=== PATIENT | female | born 1985 | race Caucasian/White ===

== ENCOUNTER → 2018-06-01 09:19 | Outpatient (CLI) | payer OTHER, SELFPAY ==
[2018-06-04 12:04] LABS: HPV Reflexed? NOT INDICATED
== END ==
PROVIDERS: Visit Provider Obstetrics & Gynecology
DX: Z12.4 Encounter for screening for malignant neoplasm of cervix (principal)
CPT/HCPCS: 88175; G0145

== ENCOUNTER → 2018-07-19 17:05 | Outpatient (CLI) | payer OTHER, SELFPAY ==
--- NOTE | 2018-07-19 17:10 | RAD_ITS ---
STUDY: X-RAY - LUMBAR SPINE REASON FOR EXAM: Female, 33 years old. Acute low back pain with radiation into hip. TECHNIQUE: 5 view(s) of the lumbar spine were obtained. COMPARISON: None FINDINGS: Normal lumbar lordosis. There is no substantial scoliosis. There is a normal alignment of the vertebrae. Normal vertebral bodies and endplates. Normal disc space heights. The soft tissue structures are unremarkable. RAD/L/S Spine Min 4 Views IMPRESSION: Normal x-ray examination of the lumbar spine. Electronically Signed: Shane Lewis MD at 6:34 EDT , Service support ,
== END ==
DX: M54.5 Low back pain (principal)
CPT/HCPCS: 72110

== ENCOUNTER → 2019-07-04 15:31 | Outpatient (CLI) | payer OTHER, SELFPAY ==
[2017-04-21 10:39] VITALS: BMI 43.5
== END ==
PROVIDERS: Visit Provider Obstetrics & Gynecology
DX: Z12.4 Encounter for screening for malignant neoplasm of cervix (principal)

== ENCOUNTER → 2020-02-15 13:13 | Outpatient (CLI) | payer OTHER, SELFPAY ==
--- NOTE | 2020-02-15 13:26 | VDLE_ITS ---
Reason For Study: Rt calf pain RIGHT GSV is normal. CFV is compressible, spontaneous, phasic, competent and demonstrates normal augmentation. FV is compressible, spontaneous, phasic, competent and demonstrates normal augmentation. POP V is compressible, spontaneous, phasic, competent and demonstrates normal augmentation. T/P Trunk is compressible. PTV is compressible. RT PerV is compressible. Procedure Exam performed in department. A preliminary report was called and/or faxed to [facility]. Interpretation Summary Deep veins of the right lower extremity are patent and compressible segmentally. There is no evidence of right lower extremity deep vein thrombosis. Valvular competence appears intact within the proximal deep venous system on the right . The right great saphenous vein appears patent and compressible segmentally. Ordering Physician: Mohamud Joy Performed By: Nathaly Brown RVT
== END ==
PROVIDERS: Referring Provider Family Medicine; Visit Provider Family Medicine
DX: M79.661 Pain in right lower leg (principal)
CPT/HCPCS: 93971

== ENCOUNTER → 2020-02-17 15:35 | Outpatient (CLI) | payer OTHER, SELFPAY ==
[2017-04-21 10:39] VITALS: BMI 43.5
[2020-02-17 16:41] LABS: hCG Titer Quant., Serum 114 mIU/mL (1-3)
[2020-02-17 17:51] LABS: Chlamydia Trachomatis by PCR Negative (Negative); Neisserai gonorrhoeae by PCR Negative (Negative); Probe Check PASS; Sample Adequacy Control PASS; Specimen Processing Control PASS
[2020-02-20 17:04] LABS: hCG Titer Quant., Serum 25 mIU/mL (1-3)
== END ==
PROVIDERS: Visit Provider Obstetrics & Gynecology
DX: Z11.3 Encounter for screening for infections with a predominantly sexual mode of transmission (principal); N91.2 Amenorrhea, unspecified
CPT/HCPCS: 36415; 84702; 84703; 87491; 87591

== ENCOUNTER → 2020-02-27 16:25 | Outpatient (CLI) | payer OTHER, SELFPAY ==
[2017-04-21 10:39] VITALS: BMI 43.5
[2020-02-27 18:26] LABS: hCG Titer Quant., Serum 1 mIU/mL (1-3)
== END ==
PROVIDERS: Referring Provider Obstetrics & Gynecology; Visit Provider Obstetrics & Gynecology
DX: N91.2 Amenorrhea, unspecified (principal)
CPT/HCPCS: 36415; 84702

== ENCOUNTER → 2020-05-03 | Outpatient (CLI) | payer OTHER, SELFPAY ==
[2017-04-21 10:39] VITALS: BMI 43.5
[2020-05-03 19:08] LABS: Chlamydia Trachomatis by PCR Negative (Negative); Neisserai gonorrhoeae by PCR Negative (Negative); Probe Check PASS; Sample Adequacy Control PASS; Specimen Processing Control PASS
== END | disposition home or self-care (01) ==
LOC: LABSPEC 16:20
PROVIDERS: Visit Provider Obstetrics & Gynecology
DX: Z11.3 Encounter for screening for infections with a predominantly sexual mode of transmission (principal)
CPT/HCPCS: 87491; 87591

== ENCOUNTER → 2020-05-31 16:42 | Outpatient (CLI) | payer OTHER, SELFPAY ==
[2017-04-21 10:39] VITALS: BMI 43.5
[2020-05-31 17:24] LABS: Absolute Lymphocyte Count 1.65 X10^3/uL (0.83-4.51); Absolute Neutrophil Count 5.2 X10^3/uL (2.0-7.7); Basophil# 0.02 X10^3/uL; Basophil% 0.3 % (0-1); Eosinophil# 0.17 X10^3/uL; Eosinophils% 2.3 % (0-5); Hematocrit 38.1 % (37-47); Hemoglobin 12.4 g/dL (12.0-15.0); Lymphocyte # 1.65 X10^3/ul (4.0); Lymphocyte % 21.9 % (19-41); Mean Corp Hgb Conc 32.5 g/dL (32-36); Mean Platelet Vol. 10.5 fl (6.2-12.0); Monocyte# 0.46 X10^3/uL; Monocyte% 6.1 % (0-10); NRBC Flagged by Analyzer 0 % (0-5); Neutrophil # 5.21 X10^3/uL (2.7-7.7); Neutrophil % 69.3 % (47-70); Platelet Count 252 K/mm3 (150-450); RBC Distribution Width CV 12.6 % (11.6-14.6); RBC Distribution Width SD 42.5 fl (35.1-43.9); Red Blood Count 4.14 M/mm3 (4.2-5.4); White Blood Count 7.5 K/mm3 (4.4-11.0)
[2020-05-31 17:36] LABS: Color, Urine Yellow (Yellow); Glucose, Dipstick Normal (Normal); Ketone-Dipstick Negative (Negative); Leukocyte Esterase-Dipstick 100 /ul (Negative); Nitrite-Dipstick Negative (Negative); Occult Blood-Urine 50 /ul (Negative); Protein-Dipstick Negative (Negative); Specific Gravity, Urine 1.025 (1.002-1.030); Urine Bilirubin Dipstick Negative (Negative); Urine Clarity Turbid (Clear); Urine Urobilinogen Normal (Normal)
[2020-05-31 18:20] LABS: Thyroid Stim Hormone (TSH) 1.45 uIU/mL (0.358-3.74)
[2020-06-01 11:47] LABS: HIV - WCH Non-Reactive (Nonreactive); Hepatitis B Surface Antigen Non-Reactive (Nonreactive); Hepatitis C Antibody Non-Reactive (Nonreactive)
[2020-06-07 01:33] LABS: Prenatal RPR NONREACTIVE (NONREACTIVE)
== END ==
PROVIDERS: Visit Provider Obstetrics & Gynecology
DX: Z34.81 Encounter for supervision of other normal pregnancy, first trimester (principal)
CPT/HCPCS: 36415; 81002; 84443; 85025; 86703; 86762; 86803; 87340

== ENCOUNTER → 2020-09-26 09:49 | Outpatient (CLI) | payer OTHER, SELFPAY ==
[2020-09-26 11:30] LABS: Hematocrit 37.5 % (37-47); Hemoglobin 12.1 g/dL (12.0-15.0); Mean Corp Hgb Conc 32.3 g/dL (32-36); Mean Corpuscular Hgb 30.6 pg (27.0-32.0); Mean Corpuscular Volume 94.9 fL (81-99); Mean Platelet Vol. 10.4 fl (6.2-12.0); Platelet Count 235 K/mm3 (150-450); RBC Distribution Width CV 12.1 % (11.6-14.6); RBC Distribution Width SD 42.5 fl (35.1-43.9); Red Blood Count 3.95 M/mm3 (4.2-5.4)
[2020-09-26 11:32] LABS: Glucose Challenge Gest 1H 50g 102 mg/dL (70-140)
== END ==
PROVIDERS: Visit Provider Obstetrics & Gynecology
DX: Z34.83 Encounter for supervision of other normal pregnancy, third trimester (principal)
CPT/HCPCS: 36415; 82950; 85027

== ENCOUNTER 2020-11-12 18:15 | Outpatient (CLI) | payer OTHER, SELFPAY ==
[2017-04-21 10:39] VITALS: BMI 43.5
[2020-11-12 18:41] VITALS: BP 127/68; PULSE 93
[2020-11-12 18:42] VITALS: TEMP 37.4
[2020-11-12 19:17] VITALS: BMI 41.1
[2020-11-12 19:19] VITALS: BP 140/69; PULSE 77; TEMP 36.3; O2SAT 99
[2020-11-12] MEDS: Lactated Ringers 1,000 ML 999 ML IV (19:31)
[2020-11-12] MEDS: Ondansetron 4 MG/2 ML Vial IV (19:38)
[2020-11-12 20:29] VITALS: BP 130/60; PULSE 88
[2020-11-12] MEDS: Loperamide 2 MG Capsule 4 MG PO (20:33)
[2020-11-12] MEDS: proMETHazine 25 MG/ML Syringe 12.5 MG IV (21:33)
[2020-11-12] MEDS: Dextrose 5%-Lactated Ringers 1,000 ML 100 ML IV (21:33)
[2020-11-12 22:17] LABS: Anion Gap 8 (5-15); BUN 5 mg/dL (7-18); BUN/Creat Ratio 10.4 RATIO (10-20); Calcium,Total 8.7 mg/dL (8.5-10.1); Chloride 108 mmol/L (98-107); Creatinine, Serum 0.48 mg/dL (0.55-1.02); EST Glomerular Filtration Rate 157 mL/min (>60); Est Glom Filt Rate - Afr Amer 190 mL/min (>60); Estimated Creatinine Clearance 166.59 ml/min; Glucose 77 mg/dL (74-106); Potassium 3.6 mmol/L (3.5-5.1); Sodium Level 138 mmol/L (136-145)
[2020-11-13] MEDS: Loperamide 2 MG Capsule PO (02:06)
[2020-11-13] MEDS: Ondansetron 4 MG/2 ML Vial IV (02:06)
[2020-11-13 02:09] VITALS: BP 106/53; PULSE 92; TEMP 37.5; O2SAT 98
[2020-11-13 06:37] VITALS: BP 108/55; PULSE 81; TEMP 36.1
[2020-11-13 07:38] VITALS: TEMP 37
[2020-11-13 07:39] VITALS: BP 113/53; PULSE 68
--- NOTE | 2020-11-13 08:17 | PCM.PN.BLA ---
Progress Note Triage visit: 35-year-old at 35/0 weeks presenting with nausea, vomiting, diarrhea. Believes to be food poisoning. Her and son had similar symptoms. Patient was feeling dehydrated and unable to keep fluids down. Feeling movement, cramping. Denies leaking of fluid or vaginal bleeding. Denied headache, vision changes, chest pain, shortness of breath. Patient was given Zofran, fluid bolus and Imodium diarrheal episodes. At that time decision to monitor overnight was made. She was continued on D5 LR, BMP was sent and was within normal limits, Zofran and Phenergan IV as needed, Imodium as needed. This morning she is feeling improved. Last vomiting episode was yesterday around 1700. Last diarrheal episode around 02 30 this morning. Drink half of a Sprite. Cramping has resolved. NSTs reactive overnight. Vital Signs Temp Pulse BP Pulse Ox 11/13/20 07:39 68 113/53 L 11/13/20 07:38 98.6 F 11/13/20 06:37 97.0 F L 81 108/55 L 11/13/20 02:09 99.5 F H 92 106/53 L 98 11/12/20 20:29 88 130/60 H Laboratory Results - last 24 hr 11/12/20 21:40 Sodium 138 Potassium 3.6 Chloride 108 H Carbon Dioxide 22.0 Anion Gap 8 BUN 5 L Creatinine 0.48 L Estim Creat Clear Calc 166.59 Est GFR (MDRD) Af Amer 190 Est GFR (MDRD) Non-Af 157 BUN/Creatinine Ratio 10.4 Glucose 77 Calcium 8.7 PE: HEENT: NC/AT CARDIORESP: no increased effort ABDOMEN: soft, NT, gravid, no RUQ pain EXT: no edema Plan to discharge home with prescription for Zofran ODT if patient can tolerate some cracker. Discussed hydration at home with Gatorade or Pedialyte, water, adriana eye. Brat diet. Follow-up in office per routine. STROKE Vital Signs/Narrative: Vital Signs Temp Pulse BP 11/13/20 07:39 68 113/53 L 11/13/20 07:38 98.6 F 11/13/20 06:37 97.0 F L 81 108/55 L
== END 2020-11-13 09:00 | disposition home or self-care (01) ==
LOC: WPOUT 18:29 → WP 18:31
PROVIDERS: Visit Provider Student in an Organized Health Care Education/Training Program
DX: O26.893 Other specified pregnancy related conditions, third trimester (principal); O21.2 Late vomiting of pregnancy; R19.7 Diarrhea, unspecified; Z3A.35 35 weeks gestation of pregnancy
CPT/HCPCS: 96361 ×8; 96374; 96375; 96376; 36415; 59025; 59050; 80048; 99218; J7120; G0378; J2405

== ENCOUNTER → 2020-11-21 | Outpatient (CLI) | payer OTHER, SELFPAY ==
[2020-11-12 19:17] VITALS: BMI 41.1
== END | disposition home or self-care (01) ==
LOC: LABSPEC 16:49
PROVIDERS: Visit Provider Obstetrics & Gynecology
DX: Z36.85 Encounter for antenatal screening for Streptococcus B (principal)
CPT/HCPCS: 87081

== ENCOUNTER 2020-12-11 19:56 | Inpatient (IN) | payer OTHER, SELFPAY ==
--- NOTE | 2020-12-11 19:56 | HP.PCM_ITS ---
History and Physical Date of Admission: 12/11/20 HPI: 35 yo G1 at 39/0w, LUIS 12/18/20 by LMP, admitted for term elective induction of labor. Denies, LOF, VB, regular contractions. +FM. This is complicated by: nothing Obstetrical History G1: current Past Medical History none Medications PNV, claritin Past Surgical History WTE, tonsillectomy, cholecystectomy Social History Tobacco use: denies Alcohol use: denies Illicit drug use: denies Labs Blood type: Bpos Rubella: immune Hep B/C: neg/neg HIV: neg RPR: nonreactive GBS: neg 11/21 Allergies bee pollen, peanuts Review of Systems General: alert and oriented HEENT: _denies change of vision Heart/lungs: _denies CP, SOB GI: _denies nausea, vomiting, dysuria, diarrhea MSK: _denies calf pain, tenderness Physical Exam Vital Signs Temp Pulse Resp BP BP Pulse Ox 12/13/20 08:14 97.7 F L 64 16 131/62 H 131/62 H 12/13/20 03:01 98.1 F 70 18 128/63 H 12/13/20 03:00 70 128/63 H 12/13/20 00:32 89 16 129/69 H 98 12/13/20 00:31 81 129/69 H 12/13/20 00:29 88 98 General: a&o x3, NAD HEENT: normocephalic, atraumatic Cardio: no JVD Resp: no increased work in breathing Abdomen: soft, gravid, nontender Extremities: _minimal-moderate edema CE: 3 external, closed internal per RN FHT: cat I [place]: quiet Labs Laboratory Last Values WBC 11.1 K/mm3 (4.4-11.0) H 12/11/20 21:30 Corrected WBC Cancelled 12/11/20 20:40 RBC 3.93 M/mm3 (4.2-5.4) L 12/11/20 21:30 Hgb 11.7 g/dL (12.0-15.0) L 12/11/20 21:30 Hct 35.8 % (37-47) L 12/11/20 21:30 MCV 91.1 fL (81-99) 12/11/20 21:30 MCH 29.8 pg (27.0-32.0) 12/11/20 21:30 MCHC 32.7 g/dL (32-36) 12/11/20 21:30 RDW Std Deviation 40.2 fl (35.1-43.9) 12/11/20 21:30 RDW Coeff of Rosenda 12.0 % (11.6-14.6) 12/11/20 21:30 Plt Count 238 K/mm3 (150-450) 12/11/20 21:30 MPV 11.3 fl (6.2-12.0) 12/11/20 21:30 Immature Gran % (Auto) 0.400 % (0.0-0.9) 12/11/20 21:30 Neut % (Auto) 73.6 % (47-70) H 12/11/20 21:30 Lymph % (Auto) 19.4 % (19-41) 12/11/20 21:30 [place] % (Auto) 5.8 % (0-10) 12/11/20 21:30 Eos % (Auto) 0.6 % (0-5) 12/11/20 21:30 Baso % (Auto) 0.2 % (0-1) 12/11/20 21:30 Neut # (Auto) Cancelled 12/11/20 20:40 Immature Gran # (Auto) Cancelled 12/11/20 20:40 Absolute Neuts (auto) 8.2 X10^3/uL (2.0-7.7) H 12/11/20 21:30 Absolute Lymphs (auto) 2.15 X10^3/uL (0.83-4.51) 12/11/20 21:30 Absolute Monos (auto) Cancelled 12/11/20 20:40 Total Counted Cancelled 12/11/20 20:40 Neutrophils % (Manual) Cancelled 12/11/20 20:40 Band Neutrophils % Cancelled 12/11/20 20:40 Lymphocytes % (Manual) Cancelled 12/11/20 20:40 Monocytes % (Manual) Cancelled 12/11/20 20:40 Eosinophils % (Manual) Cancelled 12/11/20 20:40 Basophils % (Manual) Cancelled 12/11/20 20:40 Metamyelocytes % Cancelled 12/11/20 20:40 Myelocytes % Cancelled 12/11/20 20:40 Promyelocytes % Cancelled 12/11/20 20:40 Blast Cells % Cancelled 12/11/20 20:40 Plasma Cell % (Manual) Cancelled 12/11/20 20:40 Other Cells % Cancelled 12/11/20 20:40 Nucleated RBC % 0 % (0-5) 12/11/20 21:30 Lymphocytes # Cancelled 12/11/20 20:40 Basophils # Cancelled 12/11/20 20:40 Nucleated RBCs/100 WBC Cancelled 12/11/20 20:40 Differential Comment Cancelled 12/11/20 20:40 Diff Path Review Cancelled 12/11/20 20:40 Hypersegmented Neuts Cancelled 12/11/20 20:40 Atypical Lymphocytes Cancelled 12/11/20 20:40 Reactive Lymphocytes Cancelled 12/11/20 20:40 Smudge Cells Cancelled 12/11/20 20:40 Eosinophilia # Cancelled 12/11/20 20:40 Toxic Granulation Cancelled 12/11/20 20:40 Toxic Vacuolation Cancelled 12/11/20 20:40 Dohle Bodies Cancelled 12/11/20 20:40 Lauryn Rods Cancelled 12/11/20 20:40 Platelet Estimate Cancelled 12/11/20 20:40 Plt Morphology Comment Cancelled 12/11/20 20:40 RBC Morphology Cancelled 12/11/20 20:40 RBC Morphology Cancelled 12/11/20 20:40 Polychromasia Cancelled 12/11/20 20:40 Hypochromasia Cancelled 12/11/20 20:40 Poikilocytosis Cancelled 12/11/20 20:40 Basophilic Stippling Cancelled 12/11/20 20:40 Anisocytosis Cancelled 12/11/20 20:40 Microcytosis Cancelled 12/11/20 20:40 Macrocytosis Cancelled 12/11/20 20:40 Spherocytes Cancelled 12/11/20 20:40 Sickle Cells Cancelled 12/11/20 20:40 Target Cells Cancelled 12/11/20 20:40 Tear Drop Cells Cancelled 12/11/20 20:40 Ovalocytes Cancelled 12/11/20 20:40 Stomatocytes Cancelled 12/11/20 20:40 [place] Bodies Cancelled 12/11/20 20:40 Georgina Cells Cancelled 12/11/20 20:40 Bite Cells Cancelled 12/11/20 20:40 Crenated Cell Cancelled 12/11/20 20:40 Acanthocytes (Spur) Cancelled 12/11/20 20:40 Rouleaux Cancelled 12/11/20 20:40 Schistocytes Cancelled 12/11/20 20:40 Blood Type B POSITIVE 12/11/20 22:00 A1 Antigen Typing Cancelled 12/11/20 20:40 Rho(D) Type Cancelled 12/11/20 20:40 Antibody Screen NEGATIVE 12/11/20 22:00 Assessment & Plan 35 yo G1 at 39/0w, LUIS 12/18/20 by LMP, admitted for term elective induction of labor.This is complicated by: nothing Admit to L&D - Routine labor orders - cytotec - GBS neg - CEFM - Anesthesia to see
[2020-12-11 20:14] VITALS: PULSE 92; O2SAT 97
[2020-12-11 20:15] VITALS: BP 140/66; PULSE 82
[2020-12-11 20:16] VITALS: TEMP 37
[2020-12-11 20:23] VITALS: BMI 41.8
[2020-12-11] MEDS: Lactated Ringers 1,000 ML 200 ML IV (20:40)
[2020-12-11 21:46] LABS: Absolute Lymphocyte Count 2.15 X10^3/uL (0.83-4.51); Absolute Neutrophil Count 8.2 X10^3/uL (2.0-7.7); Basophil# 0.02 X10^3/uL; Basophil% 0.2 % (0-1); Eosinophil# 0.07 X10^3/uL; Eosinophils% 0.6 % (0-5); Hematocrit 35.8 % (37-47); Hemoglobin 11.7 g/dL (12.0-15.0); Lymphocyte # 2.15 X10^3/ul (4.0); Lymphocyte % 19.4 % (19-41); Mean Corp Hgb Conc 32.7 g/dL (32-36); Mean Corpuscular Hgb 29.8 pg (27.0-32.0); Mean Corpuscular Volume 91.1 fL (81-99); Mean Platelet Vol. 11.3 fl (6.2-12.0); Monocyte# 0.64 X10^3/uL; Monocyte% 5.8 % (0-10); NRBC Flagged by Analyzer 0 % (0-5); Neutrophil # 8.17 X10^3/uL (2.7-7.7); Neutrophil % 73.6 % (47-70); Platelet Count 238 K/mm3 (150-450); RBC Distribution Width SD 40.2 fl (35.1-43.9); Red Blood Count 3.93 M/mm3 (4.2-5.4); White Blood Count 11.1 K/mm3 (4.4-11.0)
[2020-12-11] MEDS: miSOPROStol 25 MCG TABLET VAGINAL (21:50)
[2020-12-11 22:03] VITALS: BP 102/59; PULSE 76; TEMP 36.4
[2020-12-11 22:04] VITALS: PULSE 64; O2SAT 99
[2020-12-12] VITALS (44 sets, daily range): BP systolic 104–159; BP diastolic 50–80; PULSE 65–100; RESP 16–18; TEMP 36.2–37.3; O2SAT 91–100
[2020-12-12] MEDS: miSOPROStol 25 MCG TABLET VAGINAL (02:00)
[2020-12-12] MEDS: fentaNYL 100 MCG/2 ML Ampul IV (03:58)
[2020-12-12] MEDS: Lactated Ringers 500 ML 999 ML IV (05:04)
[2020-12-12] MEDS: Ondansetron 4 MG/2 ML Vial IV (05:36)
[2020-12-12] MEDS: fentaNYL-bupivacaine (epidural) 100 ML BAG EPIDURAL (06:20)
[2020-12-12] MEDS: Oxytocin 30 units/NS 500 ml 30 UNITS/500 ML IV.SOLN 334 UNITS IV (07:47)
--- NOTE | 2020-12-12 08:42 | PCM.OPRPT ---
Vaginal Delivery Maternal Presentation: Elective Induction Method of Induction: Cytotec Amniotic Membrane Rupture Type: Spontaneous Amniotic Fluid Description: Clear Final LUIS: 12/18/20 Final LUIS Source: [place] <20 weeks Gestational age: 39 Weeks and 1 Days Date of Procedure: 12/12/20 Pre-Operative Diagnosis: IUP Post-Operative Diagnosis: IUP Surgery/ Procedure Performed: Spontaneous Vaginal Delivery Type of Anesthesia: Epidural Description of Procedure: Continuous vaginal delivery of a viable female infant with Apgars of 8/9 from an occiput anterior presentation with clear amniotic fluid and normal three-vessel placenta. No episiotomy or laceration. Sponges okay. Delivery physician: Tristan Gurrola MD. Presentation: Vertex Placental Delivery Description: Spontaneous Placenta Disposition: [facility] Cord Vessel Description: 3 Vessels Cord Entanglement: Around neck x 1, loose Estimated Blood Loss: 250 cc Infant A gender: Female (1 minute): 8 (5 minute): 9 Episiotomy Description: None Laceration: None Medications given after delivery: IV Pitocin Complications: None
--- NOTE | 2020-12-12 08:45 | DCINST_ITS ---
Discharge Diet: No Restrictions Discharge Activity: May Shower, May Take a Tub Bath May resume sexual activity in: 4-6 weeks Additional Activity Instructions:: Nothing in the vagina for 4-6 weeks. You may return to work/school in 6 weeks. Call your doctor if you observe: Inability to urinate, Inability to have a bowel movement, Using more than one pad per hour Additional Instructions: If you experience any of the following, contact your healthcare provider. * Bleeding that soaks a pad every hour for 2 hours * Fever 100.4 or higher * Unrelieved incision or abdominal pain * Swelling, redness, discharge or bleeding from your incision or episiotomy site * Your incision begins to separate * Problems urinating (including inability to urinate or burning while urinating). * Visual changes * Severe headache * Flu-like symptoms * Pain or redness in one of both of your breasts * Pain, warmth, tenderness or swelling in your legs, especially the calf area * Frequent nausea and vomiting * Symptoms of depression or anxiety If you experience any of the following, call 911 or go to the nearest Emergency Room. * Chest pain * Problems breathing * Seizure activity * Partial or complete paralysis of a body part, slurred speech, weakness or drooping of the face, or a sudden inability to walk or hold your balance Allergies/Adverse Reactions: Allergies bee pollen [Bee Pollen] Allergy (Severe, Verified 12/11/20 20:19) Anaphylaxis peanut Allergy (Severe, Verified 12/11/20 20:19) Anaphylaxis Medications to take at Discharge Vit Calc,Iron,Folic [ Vitamins] 1 each PO DAILY 04/21/17 Tylenol 12/11/20 Please Follow Up With: Tristan Gurrola MD - [phone] When: Call to make an appointment with your doctor in 6 weeks. Primary Care Physician: Care Physician,No Primary [Primary Care Provider] - Test Results: Test results from this visit will be discussed in further detail at your follow- up appointment, if applicable.
--- NOTE | 2020-12-12 08:45 | PCM.DCVAG ---
Discharge Diet: No Restrictions Discharge Activity: May Shower, May Take a Tub Bath May resume sexual activity in: 4-6 weeks Additional Activity Instructions:: Nothing in the vagina for 4-6 weeks. You may return to work/school in 6 weeks. Call your doctor if you observe: Inability to urinate, Inability to have a bowel movement, Using more than one pad per hour Additional Instructions: If you experience any of the following, contact your healthcare provider. Bleeding that soaks a pad every hour for 2 hours Fever 100.4 or higher Unrelieved incision or abdominal pain Swelling, redness, discharge or bleeding from your incision or episiotomy site Your incision begins to separate Problems urinating (including inability to urinate or burning while urinating). Visual changes Severe headache Flu-like symptoms Pain or redness in one of both of your breasts Pain, warmth, tenderness or swelling in your legs, especially the calf area Frequent nausea and vomiting Symptoms of depression or anxiety If you experience any of the following, call 911 or go to the nearest Emergency Room. Chest pain Problems breathing Seizure activity Partial or complete paralysis of a body part, slurred speech, weakness or drooping of the face, or a sudden inability to walk or hold your balance Allergies/Adverse Reactions: Allergies bee pollen [Bee Pollen] Allergy (Severe, Verified 12/11/20 20:19) Anaphylaxis peanut Allergy (Severe, Verified 12/11/20 20:19) Anaphylaxis Medications to take at Discharge Vit Calc,Iron,Folic [ Vitamins] 1 each PO DAILY 04/21/17 Tylenol 12/11/20 Please Follow Up With: Tristan Gurrola MD - [phone] When: Call to make an appointment with your doctor in 6 weeks. Primary Care Physician: Care Physician,No Primary [Primary Care Provider] - Test Results: Test results from this visit will be discussed in further detail at your follow-up appointment, if applicable.
[2020-12-12] MEDS: Acetaminophen 500 MG Tablet 1000 MG PO ×2 (10:01→18:03)
[2020-12-12] MEDS: Ibuprofen 600 MG Tablet PO ×2 (14:45→21:51)
[2020-12-13] VITALS (8 sets, daily range): BP systolic 128–134; BP diastolic 62–78; PULSE 64–89; RESP 16–18; TEMP 36.5–36.7; O2SAT 98
[2020-12-13] MEDS: Acetaminophen 500 MG Tablet 1000 MG PO (03:01)
[2020-12-13] MEDS: Ibuprofen 600 MG Tablet PO (08:25)
--- NOTE | 2020-12-13 09:27 | PCM.PN.OB ---
Subjective: Patient without complaints. Wants to go home later today if baby is able to go. - Physical Exam Vitals/I&O's: Vital Signs Temp Pulse Resp BP Pulse Ox 97.7 F L 64 16 131/62 H 98 12/13/20 08:14 12/13/20 08:14 12/13/20 08:14 12/13/20 08:14 12/13/20 00:32 Oxygen Delivery Method Room Air Weight: 275 lb 3.2 oz Body Mass Index (BMI) 41.8 Intake and Output for Last 24 Hours 12/11/20 12/12/20 12/13/20 23:59 23:59 23:59 Intake Total 73.33 / 73.33 1841.67 / 1841.67 Output Total 200 / 200 Balance 73.33 / 73.33 1641.67 / 1641.67 Current Medications Acetaminophen (Acetaminophen 500 Mg Tablet) 1,000 mg PO Q8H PRN PRN PRN Reason: Pain Score 1-3 Last Admin: 12/13/20 03:01 Dose: 1,000 mg Documented by: Bisacodyl (Bisacodyl 10 Mg Suppository) 10 mg RC UD PRN PRN Reason: If no BM Dibucaine (Dibucaine 30 Gm Tube) 1 applic TOPICAL TID PRN PRN; Protocol PRN Reason: Discomfort Hydrocortisone (Hydrocortisone 2.5% Crm) 1 applic TOPICAL TID PRN PRN; Protocol PRN Reason: Discomfort Ibuprofen (Ibuprofen 600 Mg Tablet) 600 mg PO Q6H PRN PRN PRN Reason: Pain Score 1-3 Last Admin: 12/13/20 08:25 Dose: 600 mg Documented by: Methylergonovine Maleate (Methylergonovine 0.2 Mg/Ml Ampul) 0.2 mg IM X1 PRN PRN Reason: Excess bleeding/uterine atony Ondansetron HCl (Ondansetron 4 Mg/2 Ml Vial) 4 mg IV Q4H PRN PRN PRN Reason: Nausea Oxycodone HCl (Oxycodone 5 Mg Tablet) 5 - 10 mg PO Q4H PRN PRN PRN Reason: Pain Score 4-10 Senna/Docusate Sodium (Senna/Docusate Sodium 1 Tablet) 1 - 2 tablet PO DAILY PRN PRN PRN Reason: Constipation Simethicone (Simethicone 80 Mg Tablet) 80 mg PO PCHS PRN PRN Reason: Indigestion/Stomach pain Sodium Chloride (0.9% Saline Lock 10 Ml Syringe) 5 - 15 ml IV UD PRN PRN Reason: SALINE FLUSH Zolpidem Tartrate (Zolpidem Tartrate 5 Mg Tablet) 5 mg PO QHS PRN PRN PRN Reason: Insomnia Medical Necessity - Tobacco Use Smoking Status: Never smoker Assessment/Plan Doing well day #1 status post routine spontaneous vaginal delivery. Will discharge to home with routine instructions.
== END 2020-12-13 13:40 | disposition home or self-care (01) | DRG 807 ==
PROVIDERS: Student in an Organized Health Care Education/Training Program; Admitting Provider Obstetrics & Gynecology; Referring Provider Obstetrics & Gynecology; Visit Provider Obstetrics & Gynecology
DX: O69.81X0 Labor and delivery complicated by cord around neck, without compression, not applicable or unspecified (principal); Z3A.38 38 weeks gestation of pregnancy; Z37.0 Single live birth
CPT/HCPCS: 59025; 59050; 85025; 86850; 86900; 86901; 99218; J7120; G0378; J2405

== ENCOUNTER 2021-01-25 09:45 | Outpatient (RCR) | payer OTHER, SELFPAY | END 2021-01-25 23:59 | LOC: EMPH 09:45 | PROVIDERS: Visit Provider Family Medicine Geriatric Medicine | DX: Z03.818 Encounter for observation for suspected exposure to other biological agents ruled out (principal) | CPT/HCPCS: 87426 ==

== ENCOUNTER 2021-01-31 15:37 | Outpatient (RCR) | payer OTHER, SELFPAY | END 2021-02-25 23:59 | LOC: EMPH 15:37 | PROVIDERS: Referring Provider Family Medicine Geriatric Medicine; Visit Provider Family Medicine Geriatric Medicine | DX: Z03.818 Encounter for observation for suspected exposure to other biological agents ruled out (principal) | CPT/HCPCS: 87426 ==

== ENCOUNTER 2021-02-28 14:23 | Outpatient (RCR) | payer OTHER, SELFPAY | END 2021-03-27 23:59 | LOC: EMPH 14:23 | PROVIDERS: Referring Provider Family Medicine Geriatric Medicine; Visit Provider Family Medicine Geriatric Medicine | DX: Z03.818 Encounter for observation for suspected exposure to other biological agents ruled out (principal) | CPT/HCPCS: 87426 ==

== ENCOUNTER → 2021-07-31 | Outpatient (CLI) | payer OTHER, SELFPAY ==
--- NOTE | 2021-07-31 13:50 | EMB_PTH ---
PATIENT: MELLISA RIVAS LOC: [facility] U#:[id number] AGE/SX: 36/F ROOM: RE07/31/[address]: Dr. Tristan Gurrola MD : 1985 BED: DIS: 07/31/2021 SPEC #: [id number] RECD: 07/31/21 15:00 STATUS: YAHIR JENNIFER #: [id number] NIKITA: 07/31/21 13:[address]: Tristan Gurrola DEPT: SURGICAL PATHOLOGY RECD BY: Evon Mosley ENTERED: 08/01/21 09:16 SP TYPE: ENDOM BX/C DAVID DR: No Primary Care Phys Tissues: Endometrium, NOS Procedures: Surgery Specimen Level IV HEADER OPERATION: Endometrial biopsy PRE-OP DIAGNOSIS: N93.9 TISSUE SUBMITTED: Endometrial biopsy MICROSCOPIC DIAGNOSIS Endometrial biopsy: Mildly disordered proliferative endometrium SJ:jazmín 08/02/2021 MICROSCOPIC DESCRIPTION Slides are reviewed. GROSS DESCRIPTION Received in fixative is one container labeled with the patient's name and designated EM biopsy. The specimen consists of multiple fragments of hemorrhagic soft tissue that in aggregate measure 2 x 2 x 0.2 cm. The specimen is totally submitted in one cassette. / SJ:jazmín 08/01/21 TC:5 CPT: 22781
[2021-08-05 14:20] LABS: HPV Reflexed? NOT INDICATED
== END | disposition home or self-care (01) ==
LOC: LABSPEC 14:26
PROVIDERS: Visit Provider Obstetrics & Gynecology
DX: Z12.4 Encounter for screening for malignant neoplasm of cervix (principal); N39.3 Stress incontinence (female) (male)
CPT/HCPCS: 88175; 88305; G0145

== ENCOUNTER → 2021-08-28 17:25 | Outpatient (CLI) | payer OTHER, SELFPAY ==
[2021-08-28 18:20] LABS: Absolute Lymphocyte Count 2.77 X10^3/uL (0.83-4.51); Absolute Neutrophil Count 3.9 X10^3/uL (2.0-7.7); Basophil# 0.03 X10^3/uL; Basophil% 0.4 % (0-1); Eosinophil# 0.13 X10^3/uL; Eosinophils% 1.8 % (0-5); Hematocrit 39.2 % (37-47); Hemoglobin 12.7 g/dL (12.0-15.0); Lymphocyte # 2.77 X10^3/ul (0.83-4.51); Lymphocyte % 37.8 % (19-41); Mean Corp Hgb Conc 32.4 g/dL (32-36); Mean Corpuscular Hgb 29.1 pg (27.0-32.0); Mean Corpuscular Volume 89.7 fL (81-99); Mean Platelet Vol. 10.4 fl (6.2-12.0); Monocyte# 0.45 X10^3/uL; Monocyte% 6.1 % (0-10); NRBC Flagged by Analyzer 0 % (0-5); Neutrophil # 3.94 X10^3/uL (2.7-7.7); Neutrophil % 53.8 % (47-70); Platelet Count 284 K/mm3 (150-450); RBC Distribution Width CV 12.3 % (11.6-14.6); Red Blood Count 4.37 M/mm3 (4.2-5.4); White Blood Count 7.3 K/mm3 (4.4-11.0)
[2021-08-28 19:28] LABS: Vitamin D,25 Hydroxy 20.5 ng/mL
[2021-08-28 19:39] LABS: Anion Gap 8 (5-15); BUN 11 mg/dL (7-18); BUN/Creat Ratio 15.9 RATIO (10-20); Calcium,Total 8.9 mg/dL (8.5-10.1); Chloride 105 mmol/L (98-107); Creatinine, Serum 0.69 mg/dL (0.55-1.02); EST Glomerular Filtration Rate 103 mL/min (>60); Est Glom Filt Rate - Afr Amer 124 mL/min (>60); Glucose 93 mg/dL (74-106); Iron 42 ug/dL (50-170); Potassium 3.7 mmol/L (3.5-5.1); Sodium Level 139 mmol/L (136-145); Thyroid Stim Hormone (TSH) 2.86 uIU/mL (0.358-3.74)
== END ==
DX: N92.0 Excessive and frequent menstruation with regular cycle (principal); R53.83 Other fatigue
CPT/HCPCS: 36415; 80048; 82306; 83540; 84443; 85025

== ENCOUNTER 2021-09-30 09:37 | Day surgery (SDC) | payer OTHER, SELFPAY ==
[2021-09-25 16:37] LABS: Hematocrit 40.4 % (37-47); Hemoglobin 13.1 g/dL (12.0-15.0); Mean Corp Hgb Conc 32.4 g/dL (32-36); Mean Corpuscular Hgb 29.3 pg (27.0-32.0); Mean Corpuscular Volume 90.4 fL (81-99); Mean Platelet Vol. 10.1 fl (6.2-12.0); Platelet Count 292 K/mm3 (150-450); RBC Distribution Width CV 12.2 % (11.6-14.6); RBC Distribution Width SD 40.5 fl (35.1-43.9); Red Blood Count 4.47 M/mm3 (4.2-5.4); White Blood Count 7.2 K/mm3 (4.4-11.0)
[2021-09-25 16:52] LABS: Prothrombin Time (Protime)PT. 12.2 SECONDS (11.7-14.9)
[2021-09-25 16:53] LABS: Internal QC Validated? YES +Cl - CLEAR BKGD
[2021-09-25 16:54] LABS: Partial Thromboplast Time 32.3 Seconds (24.1-36.2); Pregnancy, Serum, hCG Quali. NEGATIVE Negative
[2021-09-25 17:10] LABS: Thyroid Stim Hormone (TSH) 1.94 uIU/mL (0.358-3.74)
--- NOTE | 2021-09-29 09:53 | PCM.HP.BLA ---
History and Physical Date of Admission: 09/30/21 Surgical History and Physical Suha Bell, a 36 year old female 2 0 1 0 2, presents for HTA, Hysteroscopy and Bilateral Laparoscopic Salpingectomy on September 30, 2021 at . -- Menorrhagia; Desires Permanent Sterilization -- Menorrhagia since of her child in 12/12/20, as well as a headache daily since that time. Adds she has fatigue most days. EMBx and U/S OK. MEDICATIONS HISTORY: Patient is also takin. EpiPen 0.3 mg/0.3 mL Pen Injector, as needed 2. Claritin 10 mg tablet, One pill by mouth once a day prn ALLERGIES: Bee Stings, Carries epipen, Peanuts, Severe resp. distress- was intubated, Peanut, Acute respiratory distress, Bee Pollen and Anaphylaxis Infections - denies chicken pox Illnesses - allergies seasonal + environmental, bees and peanuts Accidents - no injuries of consequence Hospitalizations - see surgery and Resp. Distress-Intubation for allergic reaction to peanuts Review of Systems: GENERAL - fatigue and headache SKIN - Denies skin changes EYES - Denies visual changes EARS - Denies difficulty hearing NOSE - Denies nasal congestion or bleeding MOUTH - Denies sore throat or difficulty swallowing NECK - Denies pain or swelling RESPIRATORY - Denies shortness of breath or wheezing CARDIOVASCULAR - Denies palpitations or chest pain GASTROINTESTINAL - Denies nausea, vomiting, diarrhea, constipation GENITOURINARY - Denies dysuria, frequency of urination, incontinence of urine MUSCULOSKELETAL - Denies joint or muscle pain NEUROLOGICAL - Denies localized numbness or weakness PSYCHIATRIC - Denies depression or anxiety ENDOCRINE - Denies heat or cold intolerance, weight loss or gain HEMATO-IMMUNOLOGIC - Denies excesive bleeding with cuts SOCIAL HISTORY: Alcohol Use - denies drinking Smoking - Never Diet - no special diet Lifestyle - low stress lifestyle and Exercise - regular Seat Belt Use - always 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 Father: Emphysema--smoker. Brother: Hyper cholesterolemia age 23. MENSTRUAL HISTORY: LMP Known?- DefiniteAmount/Duration - 16 days, Regularity - Regular, Frequency - monthly days, LMP - 09/19/21, Age Onset Menarche - 13 PAST PREGNANCIES: Total Pregnancies - 3; Full Term Pregnancies - 2; Premature - 0; Abortions, Induced - 0; Abortions, Spontaneous - 1; Ectopics - 0; Multiple Births - 0; Living Children - 2 SURGICAL HISTORY: 1. 01/21/2013 cholecystectomy ; DR. Mujica 2. Mole biopsy September 2016 3. Tonsillectomy 02-02 ; Dr. Tesha Day 4. [place] Teeth 08-04 ; Dr. Cervantes PHYSICAL EXAM BP- 132/76 Sitting, Right arm, large cuff Weight- 265.0 lbs Height- 68 inch BMI:40.3 CONSTITUTIONAL - NAD, well nourished, and well developed SKIN - No rash, lesions, or ulcers HEENT - Normocephalic, PERRLA, EOMI EXTREMITIES - No edema or calf tenderness NEUROLOGICAL - Cranial nerves II-XII grossly intact PSYCHIATRIC - A and O to time, place, person, mood and affect External Genitial Vagina - non-tender without lesions Urethra/Urethral Meatus - non-tender Vagina - vaginal verma are pink and moist without loss of rugae and no evidence of atropy Cervix - without cervical motion tenderness and has normal size and features without evident lesions ASSESSMENT/PLAN: 1. Premenopause Menorrhagia and Desires Permanent Sterilization Discussed medical and surgical options at length. U/S without polyps or fibroids. EMBx OK. Pt desires we proceed with H/S, HTA and L/S B Salpingectomy. Discussed RBAs and all questions answered.
[2021-09-30] VITALS (11 sets, daily range): BP systolic 116–150; BP diastolic 67–87; PULSE 65–93; RESP 16–18; TEMP 36.1–36.5; O2SAT 95–99; BMI 40.2
--- NOTE | 2021-09-30 | FALS_PTH ---
PATIENT: MELLISA RIVAS LOC: [facility] [place] U#:[id number] AGE/SX: 36/F ROOM: RE09/30/[address]: Dr. Tristan Gurrola MD : 1985 BED: DIS: 09/30/2021 SPEC #: [id number] RECD: 09/30/21 14:20 STATUS: YAHIR PHILLIPSTi #: [id number] NIKITA: 09/30/21 00:[address]: Tristan Gurrola DEPT: SURGICAL PATHOLOGY RECD BY: Garth Perez Tissues: A - Endometrium, NOS B - Fallopian tube Procedures: Surgery Specimen Level II Surgery Specimen Level IV HEADER OPERATION: Hysteroscopy, D & C, [facility] PRE-OP DIAGNOSIS: Menorrhagia, sterilization TISSUE SUBMITTED: A ? Endometrial curettings, B ? Bilateral fallopian tubes MICROSCOPIC DIAGNOSIS A. Endometrium, curettings: Secretory endometrium. B. Right and left fallopian tubes, salpingectomies: Complete segments of fallopian tubes with no pathologic change. AM:jazmín 10/02/2021 MICROSCOPIC DESCRIPTION Slides are reviewed. GROSS DESCRIPTION A - Received in fixative is one container labeled with the patient's name and designated endometrial curettings. The specimen consists of multiple irregular fragments of light [place] soft tissue that in aggregate measure 2.5 x 2 x 0.2 cm. The specimen is totally submitted in one cassette. B - Received in fixative is one container labeled with the patient's name and designated bilateral fallopian tubes. The specimen consists of two fallopian tubes. One fallopian tube measures 7 x 0.6 cm. The second fallopian tube received in three fragments ranging in size from 1 to 4 cm. No mass lesions are identified. Design Agent sections are submitted in two cassettes as follows: 1 - one fallopian tube, 2??fragmented fallopian tube. / AM:jazmín 10/01/21 TC:5 CPT: 94553 x2, 77353
[2021-09-30 10:16] LABS: Internal QC Validated? YES +Cl - CLEAR BKGD; Pregnancy, Urine Negative Negative
[2021-09-30] MEDS: Cefotetan 2 GM in 0.9% NS 100 ML IV (11:18)
[2021-09-30] MEDS: Ropivacaine 0.5% 30 ML Vial (11:45)
--- NOTE | 2021-09-30 12:10 | PCM.OPRPT ---
Report of Operation Date of Procedure: 09/30/21 Pre-Operative Diagnosis: Menorrhagia, Desires Permanent Sterilization Post-Operative Diagnosis: Menorrhagia, Desires Permanent Sterilization Surgery/Procedure Performed:: Diagnostic Hysteroscopy, Dilation and Curettage, Hydrothermal Ablation, Laparoscopic Bilateral Salpingectomy Surgeon: Tristan uGrrola projects manager: Jayda De Leon Type of Anesthesia: General (Endotracheal) Anesthesiologist: Eligio Naidu Specimen's removed: Endometrial curettings and bilateral fallopian tubes Estimated Blood Loss (mL): Minimal Fluids Replaced: Crystalloid Description of Procedure: Surgeon: Tristan Gurrola MD, FACOG Indication: This is a 36 year old patient who has been having problems with extremely heavy menses. She also desires permanent sterilization. Conservative measures have not been helpful. Endometrial sampling was benign and pelvic ultrasound showed that ablation may be helpful. Pt has been counseled regarding the risks, benefits and alternatives of this procedure and all questions answered. She understands that only about half of patients will have amenorrhea after this procedure. Procedure: Patient taken to the operating room where after induction of general anesthesia the patient was prepped and draped in the usual sterile fashion. Bladder was drained of urine with a catheter. Anterior cervix grasped and cervix was dilated to about 17 [place] size. Hysteroscopic hydrothermal ablation (HTA) unit was place in the cervix and the above findings were noted. HTA unit was removed and the uterus was gently curretted removing all contents. An HTA ablation cycle was then carried out at about 90 degrees Centigrade for 10 minutes with virtually no fluid loss during the procedure. After an appropriate cool down the HTA unit was removed with minimal bleeding noted. Conn cannula was placed and attention was turned toward the laparoscopic portion of the procedure. Approximately 26 cc of half percent ropivacaine was injected subumbilically, suprapubically and midway between. A 5 mm bladeless trocar was placed subumbilically and intraperitoneal placement confirmed. After CO2 insufflation was complete, a 5 mm bladeless trocar was introduced suprapubically. The above findings were noted. A 5 mm bladeless port was then placed midway between these 2 ports for tubal manipulation. Each fallopian tube was identified to its fimbriated end and an Enseal device was used to divide the mesosalpinx to the uterus. Tubes were removed through the lower 5 mm port. The peritoneal cavity and upper abdomen were examined and noted to be normal. Pelvis was copiously irrigated with saline and hemostasis noted. Laparoscopic instruments with as much CO2 gas as possible were removed and incisions were closed with interrupted 4-0 Monocryl suture. Steri-Strips placed across the incision. Vaginal instruments were removed. The patient tolerated the procedure well was taken to recovery room in satisfactory condition and sponge instrument and needle counts were all reportedly correct. Estimated blood loss for the case was minimal. There were no apparent complications of the surgery. Cefotan 2 g IV was given prior to beginning the operative procedure. Grafts/Implants Used: None Complications None Admit VTE Documentation VTE Present on Admission: Yes VTE Mechan Device Prophylaxis: SCD's
--- NOTE | 2021-09-30 12:16 | PCM.DC ---
Discharge Instructions Diet Discharge Diet: No restrictions (Increase fluid intake for the next 48 hours.) and - (Increase fluid intake for 48 hours.) Activity Discharge Activity: May Shower and May Take a Tub Bath May resume sexual activity in: 3 weeks Lifting Restrictions: Less than 25 pounds for 2 weeks Additional Activity Instructions:: Nothing in the vagina for 3 weeks please; Use Ibuprophen 800 mg orally every 8 hours as needed for pain. Can also add Tylenol 1000 mg every 8 hours if needed for pain. If Ibuprophen and Tylenol are not effective then use the Oxycodone but keep in mind it can cause serious constipation issues. Drink lots of water. Call if bleeding more than a pad per hour. Can use colace for constipation. Steps and walking are OK. Activity is encouraged but do not over do it !! Dressing / Incision Call your doctor if your incision/area has: Continuous Slow Oozing, Sudden Increased Bleeding, Increased Pain/ Swelling, Increased Redness and Foul Smelling Discharge Call your doctor if you observe: Fever of 101 or Higher, Inability to urinate, Inability to have a bowel movement and Using more than 1 pad per hour Remove Dressing in: leave until fall off Additional Dressing/Incision Instructions:: Okay to shower over the Steri-Strips tapes. They are for your comfort. If they fall off its okay to replace them with Band-Aids if you desire. Follow Up Care Please Follow Up With: Tristan Gurrola MD When: 3-4 weeks for a postop appointment. Test Results: Test results from this visit will be discussed in further detail at your follow-up appointment, if applicable. Discharge Plan Admission Primary Reason for Your Visit: Endometrial Ablation and Tubal Ligation Attending Provider: Tristan Gurrola Discharge Orders/Prescriptions Prescriptions: New oxycodone 5 mg capsule 5 mg PO Q6H PRN (Reason: pain (scale score 7-10)) 7 Days Qty: 7 RF: 0 No Action Tylenol 500 mg PO/SL PRN PRN (Reason: Pain) RF: 0 Referrals / Follow Up: ALAN GOMEZ [Other] Disposition Disposition (needs filled in before D/C Order can be placed): Home, Self Care
[2021-09-30] MEDS: Lactated Ringers 1,000 ML 40 ML IV (12:30)
[2021-09-30] MEDS: Acetaminophen 500 MG Tablet 1000 MG PO (15:16)
== END 2021-09-30 23:59 | disposition home or self-care (01) ==
LOC: SDC 09:43 → AC 09:43
PROVIDERS: Anesthesiology; Referring Provider Obstetrics & Gynecology; Visit Provider Obstetrics & Gynecology
PROC: 0U5B8ZZ Destruction of Endometrium, Via Natural or Artificial Opening Endoscopic (ICD-10-PCS; CPT 58563; principal; 2021-09-30 11:00)
PROC: (CPT 58661; 2021-09-30 11:00)
DX: N92.4 Excessive bleeding in the premenopausal period (principal); Z30.2 Encounter for sterilization; Z20.822 Contact with and (suspected) exposure to COVID-19; F32.A Depression, unspecified; K21.9 Gastro-esophageal reflux disease without esophagitis; Z79.899 Other long term (current) drug therapy
CPT/HCPCS: 58563; 58661; 36415; 81025; 84443; 84703; 85027; 85610; 85730; 86850; 86900; 86901; 87426; 88302; 88305; J7120; C1760; J2405

== ENCOUNTER → 2021-12-28 11:16 | Outpatient (CLI) | payer OTHER, SELFPAY ==
[2021-12-28 11:45] LABS: Absolute Lymphocyte Count 2.12 X10^3/uL (0.83-4.51); Absolute Neutrophil Count 3.1 X10^3/uL (2.0-7.7); Basophil# 0.04 X10^3/uL; Basophil% 0.7 % (0-1); Eosinophil# 0.14 X10^3/uL; Eosinophils% 2.4 % (0-5); Hematocrit 41.5 % (37-47); Hemoglobin 13.5 g/dL (12.0-15.0); Lymphocyte # 2.12 X10^3/ul (0.83-4.51); Lymphocyte % 36.2 % (19-41); Mean Corp Hgb Conc 32.5 g/dL (32-36); Mean Corpuscular Hgb 29.6 pg (27.0-32.0); Mean Platelet Vol. 10.4 fl (6.2-12.0); Monocyte# 0.42 X10^3/uL; Monocyte% 7.2 % (0-10); NRBC Flagged by Analyzer 0 % (0-5); Platelet Count 275 K/mm3 (150-450); RBC Distribution Width CV 12.2 % (11.6-14.6); RBC Distribution Width SD 40.7 fl (35.1-43.9); Red Blood Count 4.56 M/mm3 (4.2-5.4); White Blood Count 5.9 K/mm3 (4.4-11.0)
[2021-12-28 12:04] LABS: Hemoglobin A1c 5.1 % (3.8-5.6)
[2021-12-28 12:07] LABS: Anion Gap 3 (5-15); BUN 10 mg/dL (7-18); BUN/Creat Ratio 12.7 RATIO (10-20); Calcium,Total 8.7 mg/dL (8.5-10.1); Chloride 110 mmol/L (98-107); Creatinine, Serum 0.79 mg/dL (0.55-1.02); EST Glomerular Filtration Rate 88 mL/min (>60); Est Glom Filt Rate - Afr Amer 106 mL/min (>60); Glucose 96 mg/dL (74-106); Iron 137 ug/dL (50-170); Sodium Level 139 mmol/L (136-145); Thyroid Stim Hormone (TSH) 1.73 uIU/mL (0.358-3.74)
[2021-12-30 08:46] LABS: Vitamin D,25 Hydroxy 22.4 ng/mL
== END ==
PROVIDERS: Visit Provider Nurse Practitioner Adult Health
DX: R53.83 Other fatigue (principal); N92.0 Excessive and frequent menstruation with regular cycle
CPT/HCPCS: 36415; 80048; 82306; 83036; 83540; 84443; 85025

== ENCOUNTER → 2022-04-15 | Outpatient (CLI) | payer OTHER, SELFPAY ==
[2022-04-15 07:19] LABS: Absolute Lymphocyte Count 2.28 X10^3/uL (0.83-4.51); Absolute Neutrophil Count 3.2 X10^3/uL (2.0-7.7); Basophil# 0.03 X10^3/uL; Basophil% 0.5 % (0-1); Eosinophil# 0.19 X10^3/uL; Eosinophils% 3.1 % (0-5); Hematocrit 37.8 % (37-47); Hemoglobin 12.9 g/dL (12.0-15.0); Lymphocyte # 2.28 X10^3/ul (0.83-4.51); Lymphocyte % 36.8 % (19-41); Mean Corp Hgb Conc 34.1 g/dL (32-36); Mean Corpuscular Hgb 29.9 pg (27.0-32.0); Mean Corpuscular Volume 87.7 fL (81-99); Mean Platelet Vol. 10.9 fl (6.2-12.0); Monocyte# 0.53 X10^3/uL; Monocyte% 8.5 % (0-10); NRBC Flagged by Analyzer 0 % (0-5); Neutrophil # 3.16 X10^3/uL (2.7-7.7); Neutrophil % 50.9 % (47-70); Platelet Count 242 K/mm3 (150-450); RBC Distribution Width CV 11.9 % (11.6-14.6); RBC Distribution Width SD 38.5 fl (35.1-43.9); Red Blood Count 4.31 M/mm3 (4.2-5.4); White Blood Count 6.2 K/mm3 (4.4-11.0)
== END | disposition home or self-care (01) ==
PROVIDERS: Referring Provider Student in an Organized Health Care Education/Training Program; Visit Provider Student in an Organized Health Care Education/Training Program
DX: N92.4 Excessive bleeding in the premenopausal period (principal)
CPT/HCPCS: 36415; 85025

== ENCOUNTER → 2022-05-21 | Outpatient (CLI) | payer OTHER, SELFPAY ==
[2022-05-21 17:01] LABS: Thyroid Stim Hormone (TSH) 1.61 uIU/mL (0.358-3.74)
== END | disposition home or self-care (01) ==
LOC: WOBLAB 13:50
PROVIDERS: Visit Provider Student in an Organized Health Care Education/Training Program
DX: N93.9 Abnormal uterine and vaginal bleeding, unspecified (principal)
CPT/HCPCS: 36415; 84443

== ENCOUNTER 2022-08-07 05:29 | Day surgery (SDC) | payer OTHER, SELFPAY ==
[2022-08-01 10:45] LABS: Hematocrit 40.7 % (37-47); Hemoglobin 13.5 g/dL (12.0-15.0); Mean Corp Hgb Conc 33.2 g/dL (32-36); Mean Corpuscular Hgb 30.1 pg (27.0-32.0); Mean Corpuscular Volume 90.8 fL (81-99); Mean Platelet Vol. 11.5 fl (6.2-12.0); Platelet Count 268 K/mm3 (150-450); RBC Distribution Width CV 11.9 % (11.6-14.6); RBC Distribution Width SD 39.9 fl (35.1-43.9); Red Blood Count 4.48 M/mm3 (4.2-5.4); White Blood Count 5.6 K/mm3 (4.4-11.0)
[2022-08-01 10:53] LABS: International Normalized Ratio 0.9; Partial Thromboplast Time 30.6 Seconds (24.1-36.2)
[2022-08-01 10:56] LABS: AST(SGOT) 12 U/L (15-37); Alanine Aminotransfer ALT/SGPT 23 U/L (13-56); Albumin, Serum 3.6 g/dL (3.2-5.0); Alkaline Phosphatase 71 U/L (45-117); Globulin 3.3 g/dL (2.2-4.2); Magnesium 2.2 mg/dL (1.6-2.6); Protein, Total 6.9 g/dL (6.4-8.2)
[2022-08-07] VITALS (13 sets, daily range): BP systolic 112–138; BP diastolic 62–87; PULSE 52–90; RESP 16–18; TEMP 36.1–36.3; O2SAT 98–100; BMI 38.1
--- NOTE | 2022-08-07 | HYST_PTH ---
PATIENT: MELLISA RIVAS LOC: [facility] [place] U#:[id number] AGE/SX: 37/F ROOM: RE08/07/[address]: Dr. Chelsey Boyle, : 1985 BED: DIS: 08/07/2022 SPEC #: [id number] RECD: 08/07/22 10:36 STATUS: YAHIR JENNIFER #: [id number] NIKITA: 08/07/22 00:[address]: Chelsey Boyle DEPT: SURGICAL PATHOLOGY RECD BY: Garth Perez Tissues: Uterus, NOS Procedures: Surgery Specimen Level V HEADER OPERATION: ERAS, robotic assisted total hysterectomy, cystoscopy PRE-OP DIAGNOSIS: Abnormal uterine bleeding TISSUE SUBMITTED: Uterus, cervix MICROSCOPIC DIAGNOSIS Uterus and cervix, hysterectomy: Cervix ? mild chronic inflammation. Endometrium ? scant endometrial tissue, consistent with status post ablation. Myometrium ? focal adenomyosis. SJ:jazmín 08/08/2022 COMMENT Endometrial tissue is not sufficient for further evaluation. Please make reference to previous specimens ([id number]), endometrial biopsy with diagnosis of ?mildly disordered proliferative endometrium? and ([id number]) endometrial curettings with diagnosis of ?secretory endometrium.? MICROSCOPIC DESCRIPTION Slides are reviewed. GROSS DESCRIPTION Received in fixative is one container labeled with the patient's name and designated uterus, cervix. The?specimen consists of a hysterectomy specimen consisting of uterus with cervix weighing 83 gm and?measuring 9 x 6 x 4 cm. The serosal surface is glasgow, glistening. The ectocervical mucosa is unremarkable. The external os is oval in contour. The endocervical canal measures 3 cm in length and?the endocervical mucosa is glasgow, glistening and unremarkable. The triangular endometrial cavity measures 5 cm in length and up to 1.5 cm in width. The endometrium is glasgow, glistening without any mass lesion and measures 0.1 cm in thickness. Sections of the uterine wall do not reveal any mass lesion and measures up to 2 cm in thickness. [employer] sections are submitted in six cassettes as follows: 1??anterior cervix, 2 - posterior cervix, 3 & 4 - anterior uterine wall, 5 & 6 - posterior uterine wall. / CRIS:jazmín 08/07/2022 TC:5 CPT: 29767
[2022-08-07] MEDS: Gabapentin 600 MG Tablet PO (06:16)
[2022-08-07] MEDS: Acetaminophen 500 MG Tablet 1000 MG PO (06:16)
[2022-08-07] MEDS: Lactated Ringers 1,000 ML 40 ML IV (06:25)
--- NOTE | 2022-08-07 06:35 | PCM.HP.BLA ---
History and Physical Date of Admission: 08/07/22 HPI: 37-year-old female with persistent abnormal uterine bleeding after ablation plan for robotic assisted total laparoscopic hysterectomy, cystoscopy. Denies headache or vision changes, chest pain or shortness of breath, nausea or vomiting, diarrhea or constipation, fevers or chills. KITCHEN CHEF history: Medical history: GERD, seasonal allergies Medications: 1. Claritin 10 mg as needed 2. Esomeprazole 40 mg daily Surgical history: 1. [place] tooth extraction 2007 2. Tonsillectomy 2006 3. Cholecystectomy 2012 4. Tubal ligation and ablation 2021 Family history: Hypertension, heart disease, diabetes Allergies: Bee pollen and peanuts Social history: Denies tobacco, alcohol, drug use Review of system: Negative otherwise stated above Physical exam Vital signs blood pressure 116/73, HR 53, RR 18, T 97.3F, weight 205 General: No acute distress HEENT: Normocephalic/atraumatic, PERRLA Cardiac: Regular rate and rhythm Lungs: Clear to auscultation bilaterally Abdomen: Soft, nontender, nondistended Extremities: No edema Neurologic: Cranial nerves II through XII grossly intact, no focal deficits Musculoskeletal: Strength 5 out of 5 throughout extremities Assessment/plan:37-year-old female with persistent abnormal uterine bleeding after ablation plan for robotic assisted total laparoscopic hysterectomy, cystoscopy. All risk, benefits, alternatives discussed with patient. Risk include but are not limited to: Risk of bleeding twin transfusion, infection, injury to surrounding tissue including bowel/bladder/major abdominal vessels, VTE, ICU admission. Patient aware and consented.
[2022-08-07 07:05] LABS: Bedside Glucose 111 mg/dL (74-106)
--- NOTE | 2022-08-07 07:14 | PCM.OPRPT ---
Problems Associated Problem List Diagnoses (1) Acute post-operative pain: Report of Operation Date of Procedure: 08/07/22 Pre-Operative Diagnosis: Abnormal uterine bleeding Post-Operative Diagnosis: Abnormal uterine bleeding Surgery/Procedure Performed:: Robotic assisted total laparoscopic hysterectomy, cystoscopy Description of Surgical Findings:: Normal-appearing external genitalia. Normal-appearing bilateral ovaries and uterus. Type of Anesthesia: General Specimen's removed: Uterus, cervix Estimated Blood Loss (mL): 50cc Fluids Replaced: 1000cc Description of Procedure: Indications/Risks/Benefits: 37-year-old female with persistent abnormal uterine bleeding after endometrial ablation. Plan for robotic assisted total laparoscopic hysterectomy and cystoscopy. All risk, benefits, alternatives discussed with patient. Risk include but are not limited to risk of bleeding to the point of transfusion infection, injury to surrounding tissue including bowel/bladder/major abdominal vessels, VTE, ICU admission. Patient aware and consented. Procedure: Patient taken to the operating room and placed under general anesthesia. Patient placed in the dorsal lithotomy position and prepped and draped in the usual sterile fashion. Savage catheter placed. Weighted speculum placed in posterior vagina and right angle retractor used to visualize the cervix. Anterior lip of the cervix grasped with single-tooth tenaculum. Cervix sequentially dilated. Uterus sounded to 10 cm. 2 [id number] stitches placed at the 3 and 9 o'clock position of the cervix. Medium uterine manipulator placed. Gloves were changed and attention turned to the anterior abdominal wall. 8 mm vertical supraumbilical incision made with scalpel and trocar placed under direct visualization. Abdomen insufflated. Right and left lower quadrant incisions made and trochars placed under direct visualization. Left upper quadrant trocar placed under direct visualization. Robot docked. Noted uterine perforation with manipulator. Manipulator moved to an intrauterine position, no surrounding pelvic injury noted. Bilateral ureters identified. Right round ligament incised with cautery. Vesicouterine peritoneum identified and dissected towards the level of the cervix. Left round ligament incised with cautery vesicouterine peritoneum identified and dissected towards the anterior cervix. Further dissection of the bladder away from the lower the anterior cervix was completed allowing the bladder to fall away from the cervix. Left utero ovarian ligament coagulated and cut. Dissection carried down the lateral side of the left uterus, using bipolar and monopolar cautery. Left uterine arteries coagulated and cut, allowing the uterine arteries to fall away from the colpotomy cup. Right utero-ovarian ligament coagulated and cut. Dissection carried down the right side of the uterus in a similar fashion. Right uterine arteries coagulated and cut, allowing them to fall away from the colpotomy cup. Further dissection of the bladder completed, using blunt dissection. Uterus anteverted and posterior colpotomy made. This was carried circumferentially. Uterus and cervix removed through the vagina. Colpotomy closed with running V-Loc stitch. Cystoscopy then completed. Savage catheter removed. Cystoscopy noting an intact bladder dome and bilateral ureteral jets. Abdominal pressure lowered, demonstrating hemostatic closed vaginal cuff. Insufflation stopped, trochars removed. Skin closed with subcuticular stitch and skin glue. At the end of the procedure all needle, lap, sponge counts were correct. UOP: 125cc Complications None
--- NOTE | 2022-08-07 07:16 | DCINST_ITS ---
Discharge Instructions Diet Discharge Diet: No restrictions Activity Discharge Activity: Return to Normal Activity and May Shower May resume sexual activity in: 6 weeks Weight Bearing Status: Weight bearing as tolerated Lifting Restrictions: No greater than 15 pounds Dressing / Incision Call your doctor if your incision/area has: Continuous Slow Oozing, Increased Redness and Foul Smelling Discharge Call your doctor if you observe: Fever of 101 or Higher, Inability to urinate, Inability to have a bowel movement, Using more than 1 pad per hour, Shortness of breath, Swelling in the ankles, Chest pain and Uncontrolled pain Cleanse incision/area with: Soap & Water and Keep Dressing Clean & Dry Follow Up Care Please Follow Up With: Chelsey Boyle DO When: 2 weeks post operative appointment Test Results: Test results from this visit will be discussed in further detail at your follow- up appointment, if applicable. Discharge Plan Admission Primary Reason for Your Visit: Hysterectomy Attending Provider: Chelsey Boyle Primary Care Provider: ALAN GOMEZ Discharge Orders/Prescriptions Prescriptions: New oxycodone 5 mg tablet 5 mg PO Q6H PRN (Reason: pain (scale score 7-10)) 4 Days Qty: 20 0RF Continued Tylenol 500 mg PO/SL PRN PRN (Reason: Pain) fluconazole 200 mg tablet 200 mg PO .Q3WK Label Comments: TAKE 1 TABLET BY MOUTH ONCE A WEEK FOR 3 WEEKS esomeprazole magnesium 40 mg capsule,delayed release(DR/EC) 40 mg PO DAILY Label Comments: TAKE 1 CAPSULE BY MOUTH EVERY DAY Referrals / Follow Up: ALAN GOMEZ [Other] Disposition Disposition (needs filled in before D/C Order can be placed): Home, Self Care
[2022-08-07] MEDS: Cefazolin 2 GM in 0.9% Normal Saline 100 ML IV (07:29)
[2022-08-07] MEDS: Ondansetron 4 MG/2 ML Vial IV (09:15)
[2022-08-07] MEDS: HYDROcodone Bitartrate/Apap 5/325 Tablet PO (14:04)
== END 2022-08-07 14:38 | disposition home or self-care (01) ==
LOC: SDC 05:35 → AC 05:41
PROVIDERS: Anesthesiology; Referring Provider Student in an Organized Health Care Education/Training Program; Visit Provider Student in an Organized Health Care Education/Training Program
PROC: 0UT94ZZ Resection of Uterus, Percutaneous Endoscopic Approach (ICD-10-PCS; CPT 58570; principal; 2022-08-07 07:10)
DX: N72 Inflammatory disease of cervix uteri (principal); K21.9 Gastro-esophageal reflux disease without esophagitis; Z79.899 Other long term (current) drug therapy
CPT/HCPCS: 58570; S2900; 00840; 36415; 80076; 82962; 83735; 85027; 85610; 85730; 86850; 86900; 86901; 88307; J7120; J2405; J3475

== ENCOUNTER 2022-09-19 11:28 | Outpatient (CLI) | payer OTHER, SELFPAY ==
[2022-09-19 12:29] LABS: ALB/GLOB Ratio 1.1 RATIO (0.9-2.4); AST(SGOT) 18 U/L (15-37); Alanine Aminotransfer ALT/SGPT 32 U/L (13-56); Albumin, Serum 3.7 g/dL (3.2-5.0); Alkaline Phosphatase 77 U/L (45-117); Anion Gap 1 (5-15); BUN 10 mg/dL (7-18); BUN/Creat Ratio 14.6 RATIO (10-20); CRP 5.97 mg/L (0.0-3.0); Calcium,Total 8.7 mg/dL (8.5-10.1); Chloride 111 mmol/L (98-107); Creatinine, Serum 0.69 mg/dL (0.55-1.02); EST Glomerular Filtration Rate 103 mL/min (>60); Est Glom Filt Rate - Afr Amer 125 mL/min (>60); Globulin 3.4 g/dL (2.2-4.2); Glucose 95 mg/dL (74-106); LDH 197 U/L (84-246); Potassium 3.6 mmol/L (3.5-5.1); Protein, Total 7.1 g/dL (6.4-8.2); Sodium Level 141 mmol/L (136-145)
[2022-09-19 12:43] LABS: Absolute Lymphocyte Count 1.97 X10^3/uL (0.83-4.51); Absolute Neutrophil Count 3.4 X10^3/uL (2.0-7.7); Basophil# 0.03 X10^3/uL; Basophil% 0.5 % (0-1); Eosinophil# 0.16 X10^3/uL; Eosinophils% 2.7 % (0-5); Hematocrit 39.2 % (37-47); Hemoglobin 12.9 g/dL (12.0-15.0); Lymphocyte # 1.97 X10^3/ul (0.83-4.51); Lymphocyte % 32.7 % (19-41); Mean Corp Hgb Conc 32.9 g/dL (32-36); Mean Corpuscular Hgb 30.3 pg (27.0-32.0); Mean Platelet Vol. 10.4 fl (6.2-12.0); Monocyte# 0.43 X10^3/uL; Monocyte% 7.1 % (0-10); NRBC Flagged by Analyzer 0 % (0-5); Neutrophil # 3.42 X10^3/uL (2.7-7.7); Neutrophil % 56.8 % (47-70); Platelet Count 299 K/mm3 (150-450); RBC Distribution Width CV 12.3 % (11.6-14.6); RBC Distribution Width SD 41.4 fl (35.1-43.9); Red Blood Count 4.26 M/mm3 (4.2-5.4)
[2022-09-19 12:48] LABS: Erythrocyte Sedimentation Rate 15 mm/hr (0-30)
[2022-09-22 16:08] LABS: Anti-Centromere B Ab 0.3 AI (0.0-0.9); Anti-Chromatin <0.2 AI (0.0-0.9); Anti-Jo <0.2 AI (0.0-0.9); Anti-Scleroderma-70 AB <0.2 AI (0.0-0.9); RNP Ab 0.3 AI (0.0-0.9); SJOGREN'S Anti-SS-A test < 0.2 AI (0.0-0.9); SJOGREN'S Anti-SS-B test < 0.2 AI (0.0-0.9); Smith Ab <0.2 AI (0.0-0.9)
[2022-09-23 11:03] LABS: Anti-dsDNA Ab <1 IU/mL (0-9)
[2022-09-23 16:08] LABS: Endomysial Antibody IgA Negative (Negative)
[2022-09-23 19:47] LABS: Immunoglobulin A 117 mg/dL (87-352); t-Transglutaminase IgA <2 U/mL (0-3)
[2022-09-27 10:08] LABS: Albumin 3.6 g/dL (2.9-4.4); Alpha-1-Globulins 0.2 g/dL (0.0-0.4); Alpha-2-Globulins 0.8 g/dL (0.4-1.0); Cytoplasmic Ab (C-ANCA) <1:20 titer (Neg:<1:20); Gamma Globulin 1.1 g/dL (0.4-1.8); Immunoglobulin A 111 mg/dL (87-352); Immunoglobulin E 162 IU/mL (6-495); Immunoglobulin G 950 mg/dL (586-1602); Immunoglobulin M 95 mg/dL (26-217); PROEL- TOTAL PROTEIN 6.6 g/dL (6.0-8.5)
[2022-09-27 11:28] LABS: Perinuclear Ab (P-ANCA) <1:20 titer (Neg:<1:20)
== END 2022-09-19 23:59 | disposition home or self-care (01) ==
PROVIDERS: Referring Provider Nurse Practitioner Adult Health; Visit Provider Nurse Practitioner Adult Health
DX: R19.8 Other specified symptoms and signs involving the digestive system and abdomen (principal)
CPT/HCPCS: 36415; 80053; 82784; 82785; 83516; 83615; 84165; 85025; 85652; 86140; 86225; 86235; 86255; 86256; 86334

== ENCOUNTER → 2022-09-23 | Outpatient (CLI) | payer OTHER, SELFPAY ==
[2022-09-25 16:37] LABS: Calprotectin, Stool <16 ug/g (0-120)
== END | disposition home or self-care (01) ==
LOC: LABSPEC 11:28
PROVIDERS: Referring Provider Nurse Practitioner Adult Health; Visit Provider Nurse Practitioner Adult Health
DX: R19.8 Other specified symptoms and signs involving the digestive system and abdomen (principal); K58.9 Irritable bowel syndrome, unspecified
CPT/HCPCS: 83630; 83993; 87493; 87506

== ENCOUNTER → 2022-10-07 | Outpatient (CLI) | payer OTHER, SELFPAY ==
--- NOTE | 2022-10-07 08:31 | CT_ITS ---
STUDY: CT ABDOMEN AND PELVIS WITH CONTRAST REASON FOR EXAM: Female, 37 years old. Lower abd pain, diarrhea -- oral and iv X 20 MONTHS. PRIOR HYSTERECTOMY RADIATION DOSAGE (If Supplied By Facility): CTDIvol = ( 15.01 ) mGy, DLP = ( 1173.85 ) mGycm TECHNIQUE: Transaxial images were obtained from the dome of the diaphragm to the symphysis pubis with oral contrast. Oral and amp; IV Readi-CAT and amp; 100mL Isovue-300 was administered. Sagittal and coronal images were reconstructed. Individualized dose optimization techniques were used for this CT. COMPARISON: Comparison is made with prior study dated 06/18/2013. FINDINGS: The visualized lung bases are unremarkable. The visualized portions of the heart are within normal limits. Normal liver. The patient is status post cholecystectomy. Normal spleen. Normal pancreas. Normal bilateral adrenal glands. Normal right kidney. Normal left kidney. Normal visualized stomach. Normal small intestine. Normal colon. The appendix is visualized and appears normal. Normal abdominal aorta. Normal inferior vena cava. Normal retroperitoneum. Normal urinary bladder. There is absence of the uterus consistent with a prior hysterectomy. Normal abdominal wall. Normal osseous structures. CT/Abdomen/Pelvis WITH Contrast IMPRESSION: Status post cholecystectomy. Status post hysterectomy. Electronically Signed: Tawanda Sutherland MD at 15:03 EST ,
== END | disposition home or self-care (01) ==
LOC: CT 08:29
PROVIDERS: Visit Provider Nurse Practitioner Adult Health
DX: R19.7 Diarrhea, unspecified (principal); Z90.49 Acquired absence of other specified parts of digestive tract; Z90.710 Acquired absence of both cervix and uterus; R10.9 Unspecified abdominal pain; R19.8 Other specified symptoms and signs involving the digestive system and abdomen
CPT/HCPCS: 74177; Q9967

== ENCOUNTER 2022-12-01 05:23 | Day surgery (SDC) | payer OTHER, SELFPAY ==
--- NOTE | 2022-12-01 | GASB_PTH ---
PATIENT: MELLISA RIVAS LOC: [facility] U#:[id number] AGE/SX: 37/F ROOM: RE12/01/[address]: Dr. Jamshid Escobedo DO : 1985 BED: DIS: 12/01/2022 SPEC #: [id number] RECD: 12/01/22 11:52 STATUS: YAHIR PHILLIPSTi #: [id number] NIKITA: 12/01/22 00:[address]: Jamshid Escobedo DEPT: SURGICAL PATHOLOGY RECD BY: Garth Perez Tissues: A - Duodenum, NOS B - Gastric mucous membrane C - Ileum, NOS D - COLON BIOPSY Procedures: Surgery Specimen Level IV HEADER OPERATION: Colonoscopy with biopsies, EGD with biopsies ([facility] [place]) PRE-OP DIAGNOSIS: Gastric reflux, abdominal pain, constipation/diarrhea, rectal pain, dysphagia TISSUE SUBMITTED: A ? Duodenum biopsy, B ? Gastric antrum biopsy for H. pylori and path, C ? Terminal ileum biopsy, D ? Random colon biopsy MICROSCOPIC DIAGNOSIS A. Duodenum, biopsy: Fragments of duodenal mucosa, no pathologic diagnosis. B. Gastric antrum, biopsy: Mild gastritis. See microscopic description and comment. C. Terminal ileum, biopsy: Fragments of small intestinal mucosa, no pathologic diagnosis. D. Colon, random biopsy: Fragments of colonic mucosa, no pathologic diagnosis. SJ:rg 12/02/2022 COMMENT B. The results of immunohistochemistry for Helicobacter pylori will be reported separately ([id number]). MICROSCOPIC DESCRIPTION Slides are reviewed. B. The specimen shows fragments of gastric mucosa with chronic inflammatory cell infiltrates in the lamina propria consisting of lymphocytes and plasma cells, consistent with mild chronic gastritis. GROSS DESCRIPTION A - Received in fixative is one container labeled with the patient's name and designated duodenum biopsy. The specimen consists of two irregular fragments of light glasgow soft tissue that in aggregate measure 0.6 x 0.3 x 0.1 cm. The specimen is totally submitted in one cassette. B - Received in fixative is one container labeled with the patient's name and designated gastric antrum biopsy. The specimen consists of two irregular fragments of light glasgow soft tissue that in aggregate measure 0.6 x 0.3 x 0.1 cm. The specimen is totally submitted in one cassette. C - Received in fixative is one container labeled with the patient's name and designated terminal ileum biopsy. The specimen consists of multiple irregular fragments of light glasgow soft tissue that in aggregate measure 0.6 x 0.6 x 0.1 cm. The specimen is totally submitted in one cassette. D - Received in fixative is one container labeled with the patient's name and designated random colon biopsy. The specimen consists of multiple irregular fragments of light glasgow soft tissue that in aggregate measure 2.0 x 0.5 x 0.1 cm. The specimen is totally submitted in one cassette. / SJ:rg 12/01/2022 TC:3 CPT: 74134 x4
[2022-12-01] MEDS: Lactated Ringers 1,000 ML 15 ML IV (05:55)
[2022-12-01 05:56] VITALS: BP 125/77; PULSE 68; RESP 18; TEMP 36.5; O2SAT 99; BMI 37.8
--- NOTE | 2022-12-01 06:30 | IMM_PTH ---
PATIENT: MELLISA RIVAS LOC: [facility] U#:[id number] AGE/SX: 37/F ROOM: RE12/01/[address]: Dr. Jamshid Escobedo DO : 1985 BED: DIS: 12/01/2022 SPEC #: [id number] RECD: 12/01/22 12:30 STATUS: YAHIR JENNIFER #: [id number] NIKITA: 12/01/22 06:[address]: Jamshid Escobedo DEPT: IMMUNOHISTOCHEMISTRY RECD BY: Alley Limon Tissues: B - Stomach, NOS Procedures: H Pylori (initial) PHYSICIAN & INSTITUTION [place] [id number] SPECIMEN INFORMATION: Tissue Source: B ? Gastric antrum Clinical Info: Gastric reflux, abdominal pain, constipation/diarrhea, rectal pain, dysphagia Specimen Number: [id number] CPT code: 63663 METHODOLOGY: Deparaffinized sections of prefer/formalin-fixed tissue or PAP/DQ stained slides are incubated with monoclonal/polyclonal antibodies/oligonucleotide probes. Localization is made via biotin free immunoperoxidase method. Appropriate controls are performed and reacted as expected. Results on target cell population are indicated in the following table: RESULTS: ANTIBODY / CLONE RESULT Block B H Pylori (polyclonal) negative These tests were developed and their performance characteristics determined by Laboratory. They may not have been cleared or approved by the U.S. Food and Drug Administration. The FDA has determined that such clearance or approval is not necessary. The above immunohistochemical/dualISH markers are ordered and reviewed by the Pathologist. INTERPRETATION: B. Gastric antrum, biopsy: Negative for Helicobacter pylori organisms. SJ:jazmín 12/02/2022
--- NOTE | 2022-12-01 06:33 | HP.PCM_ITS ---
History and Physical Date of Admission: 12/01/22 37 F who presents to the office today for worsening abdominal pain x 6-12 months, as well as diarrhea. She reports intermittent epigastric abd pain since cholecystectomy in 2012. Epigastric pain is intermittent, can be severe, doesn't radiate, occurs almost daily, tends to be postprandial. She has always tended to alternate between diarrhea and constipation, but diarrhea has been more of a problem recently. Avoids certain foods that cause postprandial diarrhea. Worse with stress. Daily heartburn and nausea despite PPI. Currently taking esomeprazole--initially thought it might be helping, but then still needed TUMS, especially when more stressed. Sometimes has difficulty swallowing food, has to drink lots of fluids to get food to pass. Has also tried pantoprazole. Takes ondansetron prn, thinks somewhat related to stress. Has heartburn daily, retrosternal burning, occas acid in throat. Diarrhea has become more urgent, gets a burning pain in lower abdomen, and spasms and cramps. Has accidents because of the urgency. No nocturnal diarrhea. No melena or hematochezia. Can have mucus in the diarrhea. Gets rectal pains which are sharp, can be random or with BM. No tenesmus. Alternates with constipation, may have 2-3 days w/o BM, then returns to diarrhea. Rarely has formed stool. Colonoscopy 2010 and 2013, normal that she recalls. Had EGD, showed small hiatal hernia. 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 including here at [facility] one weekend a month ROS Const Constitutional: Positive for fatigue, headache(s) and weight change; No fever(s) or frequent falls ENT ENT: Positive for headache(s); No difficulty swallowing Cardio Cardiology: No leg pain with exertion Gastro GI: Positive for abdominal pain, bloating, constipation, diarrhea, heartburn and nausea/dyspepsia; No change in bowel habits, difficulty swallowing, Vomiting blood/hematemesis, Blood in stool or vomiting Musc Musculoskeletal: Positive for joint pain, back pain, muscle weakness, stiffness and restless legs; No abnormal gait, joint swelling, muscle cramps, numbness, tingling, Arthritis, sciatica, leg pain at night or leg pain with exertion Skin Skin: Positive for dry skin and itchy eyes; No lesions or rash Neuro Neurology: Positive for headache(s) and restless legs; No abnormal gait, dizziness, frequent falls, numbness, tingling, tremor(s), Increased tone in limbs, paralysis or seizures Psych Psychiatric: Positive for anxiety, Positive for depression, No paranoia, No Behavioral Problems, No Compulsive Behavior, No hyperactivity, No inattentiveness, No obsessions/compulsions, No Temper Tantrums and No suicidal ideation Endo Endocrine: Positive for fatigue and weight change Aller/Imm Allergy/Immunologic: Positive for itchy eyes Da/Lymp Hematologic/Lymphatic: No easy bleeding or easy bruising Exam Const General: cooperative, comfortable and no acute distress Nutritional Appearance: obese Orientation: alert, awake and oriented x3 HENMT Head: normal to inspection Eyes Conjunctivae: conjunctivae normal Sclera: sclerae normal Resp Effort & Inspection: normal respiratory effort GI Inspection: normal to inspection Palpation: soft, no hepatosplenomegaly, no masses and tender in the LUQ Other: healed laparoscopic incisions General: bladder normal to palpation Bimanual Exam- Vagina & Uterus: bladder normal to palpation Skin General: no jaundice Neuro Gait: normal gait Psych Mood: anxious mood Quality Reporting Tobacco Screening ([facility] 138) Smoking Status: Never smoker Assessment and Plan Assessment and Plan (1) Gastric reflux: ?Status:?Acute ?Plan: 37 yr old female with chronic epigastric pain, heartburn, nausea, dysphagia, diarrhea, rectal pain, lower abd pains DDx esophagitis, white's, hiatal hernia, esophageal stricture, PUD, gastritis, h pylori, bile acid gastritis/diarrhea, IBS, IBD, infection Labs--stool tests for inflammation and infection; blood tests for inflammation, celiac, IBD, rheum/autoimmune Try dicyclomine 10 mg bid for spasms/diarrhea Could consider buspirone for IBS/anxiety; encouraged her to see PCP for treatment of anxiety CT abd pel w/ oral and IV contrast EGD and colonoscopy w/ office f/u 2 wks later (2) Abdominal pain: ?Status:?Acute ?Plan: see above (3) Alternating constipation and diarrhea: ?Status:?Acute ?Plan: see above (4) Rectal pain: ?Status:?Acute ?Plan: see above (5) Dysphagia: ?Status:?Acute ?Plan: see above ? ? ? Orders: Orders Comprehensive Metabolic Profil Today R19.8 - Other specified symptoms and signs involving the digestive system and abdomen ? CRP Today R19.8 - Other specified symptoms and signs involving the digestive system and abdomen ? LDH Today R19.8 - Other specified symptoms and signs involving the digestive system and abdomen ? CBC W/Diff, Automated Today R19.8 - Other specified symptoms and signs involving the digestive system and abdomen ? Erythrocyte Sed Rate Today R19.8 - Other specified symptoms and signs involving the digestive system and abdomen ? DEIRDRE Comprehensive Panel Today R19.8 - Other specified symptoms and signs involving the digestive system and abdomen ? Calprotectin, Stool Today R19.8 - Other specified symptoms and signs involving the digestive system and abdomen ? Stool Lactoferrin/WBC Today R19.8 - Other specified symptoms and signs involving the digestive system and abdomen ? ANCA Today R19.8 - Other specified symptoms and signs involving the digestive system and abdomen ? Celiac Disease Profile Today R19.8 - Other specified symptoms and signs involving the digestive system and abdomen ? Immunoglobulins G/A/M/E Today R19.8 - Other specified symptoms and signs involving the digestive system and abdomen ? MARCOS + Protein Elect, Serum Today R19.8 - Other specified symptoms and signs involving the digestive system and abdomen ? CDIFF (PCR) Today R19.8 - Other specified symptoms and signs involving the digestive system and abdomen ? ENTERIC PATHOGEN PANEL STOOL Today K58.9 - Irritable bowel syndrome without diarrhea ? Abdomen/Pelvis WITH Contrast Today R10.9 - Unspecified abdominal pain, R19.8 - Other specified symptoms and signs involving the digestive system and abdomen ? Miscellaneous Lab Procedure Today K62.89 - Other specified diseases of anus and rectum, R10.9 - Unspecified abdominal pain, R19.8 - Other specified symptoms and signs involving the digestive system and abdomen ? I have examined the patient and the H&P has been reviewed. There are no clinical changes since date of exam.
[2022-12-01 07:00] VITALS: BP 113/73; BP 125/77; PULSE 66; RESP 18; TEMP 36.6; O2SAT 100
[2022-12-01 07:05] VITALS: BP 106/59; BP 125/77; PULSE 67; RESP 18; O2SAT 100
--- NOTE | 2022-12-01 07:05 | OP.EGD_ITS ---
Patient Name: Suha Bell Procedure Date: 12/01/2022 6:17 AM Date of : 1985 Age: 37 Procedure: Upper GI endoscopy Indications: Epigastric abdominal pain, Functional Dyspepsia Providers: Jamshid Escobedo DO Medicines: Monitored Anesthesia Care Patient Profile: This is a 37 year old female. Refer to note in patient chart for documentation of history and physical. Patient has symptoms of chronic abdominal cramping, chronic right upper quadrant abdominal pain and chronic dyspepsia. Complications: No immediate complications. Procedure: Pre-Anesthesia Assessment: - Prior to the procedure, a History and Physical was performed, and patient medications and allergies were reviewed. The patient is competent. The risks and benefits of the procedure and the sedation options and risks were discussed with the patient. All questions were answered and informed consent was obtained. Patient identification and proposed procedure were verified by the physician. Mental Status Examination: normal. Prophylactic Antibiotics: The patient does not require prophylactic antibiotics. Prior Anticoagulants: The patient has taken no previous anticoagulant or antiplatelet agents. After reviewing the risks and benefits, the patient was deemed in satisfactory condition to undergo the procedure. The anesthesia plan was to use monitored anesthesia care (MAC). Immediately prior to administration of medications, the patient was re-assessed for adequacy to receive sedatives. The heart rate, respiratory rate, oxygen saturations, blood pressure, adequacy of pulmonary ventilation, and response to care were monitored throughout the procedure. The physical status of the patient was re-assessed after the procedure. After obtaining informed consent, the endoscope was passed under direct vision. Throughout the procedure, the patient's blood pressure, pulse, and oxygen saturations were monitored continuously. The colonoscope was introduced through the mouth, and advanced to the second part of duodenum. The upper GI endoscopy was accomplished without difficulty. The patient tolerated the procedure well. Scope In: 6:40:04 AM Scope Out: 6:43:47 AM Total Procedure Duration Time 0 hours 3 minutes 43 seconds Findings: The examined esophagus was normal. Patchy mildly erythematous mucosa without bleeding was found in the gastric antrum. Biopsies were taken with a cold forceps for histology. Verification of patient identification for the specimen was done. Estimated blood loss was minimal. Patchy mildly erythematous mucosa without active bleeding and with no stigmata of bleeding was found in the duodenal bulb and in the second portion of the duodenum. Biopsies were taken with a cold forceps for histology. Verification of patient identification for the specimen was done. Estimated blood loss was minimal. Impression: - Normal esophagus. - Erythematous mucosa in the antrum. Biopsied. - Erythematous duodenopathy. Biopsied. - Bile induced inflammation in the stomach and duodenum Recommendation: - Discharge patient to home. - Resume previous diet. - Continue present medications. - Await pathology results. Procedure Code(s): --- Professional --- 58165, Esophagogastroduodenoscopy, flexible, transoral; with biopsy, single or multiple CPT copyright 2017 [employer]. All rights reserved. The codes documented in this report are preliminary and upon equine manager review may be revised to meet current compliance requirements. Jamshid Escobedo DO 12/01/2022 7:04:03 AM This report has been signed electronically. Number of Addenda: 0 Note Initiated On: 12/01/2022 6:17 AM
--- NOTE | 2022-12-01 07:05 | OP.CCLET_ITS ---
12/01/2022 Charlene Re : Upper GI endoscopy procedure for Suha Chang This procedure was performed on Thursday, December 01, 2022. My impressions and recommendations are as follows: Impressions : - Normal esophagus. - Erythematous mucosa in the antrum. Biopsied. - Erythematous duodenopathy. Biopsied. - Bile induced inflammation in the stomach and duodenum Recommendations : - Discharge patient to home. - Resume previous diet. - Continue present medications. - Await pathology results. My findings are described in the full procedure note, which is enclosed. If I can be of further assistance, please feel free to contact me at . Sincerely, Jamshid Escobedo DO 12/01/2022 7:04:03 AM This report has been signed electronically.
--- NOTE | 2022-12-01 07:08 | OP.COLON_ITS ---
Patient Name: Suha Bell Procedure Date: 12/01/2022 6:44 AM Date of : 1985 Age: 37 Procedure: Colonoscopy Indications: Generalized abdominal pain, Clinically significant diarrhea of unexplained origin Providers: Jamshid Escobedo DO Medicines: Monitored Anesthesia Care Patient Profile: This is a 37 year old female. Refer to note in patient chart for documentation of history and physical. Patient has symptoms of chronic abdominal cramping, chronic right upper quadrant abdominal pain and chronic dyspepsia. Last Colonoscopy: 10 years ago. Complications: No immediate complications. Procedure: Pre-Anesthesia Assessment: - Prior to the procedure, a History and Physical was performed, and patient medications and allergies were reviewed. The patient is competent. The risks and benefits of the procedure and the sedation options and risks were discussed with the patient. All questions were answered and informed consent was obtained. Patient identification and proposed procedure were verified by the physician. Mental Status Examination: normal. Prophylactic Antibiotics: The patient does not require prophylactic antibiotics. Prior Anticoagulants: The patient has taken no previous anticoagulant or antiplatelet agents. After reviewing the risks and benefits, the patient was deemed in satisfactory condition to undergo the procedure. The anesthesia plan was to use monitored anesthesia care (MAC). Immediately prior to administration of medications, the patient was re-assessed for adequacy to receive sedatives. The heart rate, respiratory rate, oxygen saturations, blood pressure, adequacy of pulmonary ventilation, and response to care were monitored throughout the procedure. The physical status of the patient was re-assessed after the procedure. After I obtained informed consent, the scope was passed under direct vision. Throughout the procedure, the patient's blood pressure, pulse, and oxygen saturations were monitored continuously. The colonoscope was introduced through the anus and advanced to the terminal ileum. The colonoscopy was performed without difficulty. The patient tolerated the procedure well. The quality of the bowel preparation was good. Scope In: 6:45:29 AM Scope Withdrawal Time 0 hours 8 minutes 38 seconds Scope Out: 6:56:46 AM Total Procedure Duration Time 0 hours 11 minutes 17 seconds Findings: The perianal and digital rectal examinations were normal. An area of mildly congested mucosa was found in the recto-sigmoid colon, in the sigmoid colon, in the transverse colon and in the ascending colon. Biopsies were taken with a cold forceps for histology. Verification of patient identification for the specimen was done. Estimated blood loss was minimal. The terminal ileum appeared normal. Biopsies were taken with a cold forceps for histology. Verification of patient identification for the specimen was done. Estimated blood loss was minimal. Impression: - Congested mucosa in the recto-sigmoid colon, in the sigmoid colon, in the transverse colon and in the ascending colon. Biopsied. - The examined portion of the ileum was normal. Biopsied. Recommendation: - Discharge patient to home. - Resume previous diet. - Continue present medications. - Await pathology results. - Repeat colonoscopy in 10 years for surveillance based on pathology results. Procedure Code(s): --- Professional --- 27715, Colonoscopy, flexible; with biopsy, single or multiple CPT copyright 2017 [employer]. All rights reserved. The codes documented in this report are preliminary and upon electric motor repairman review may be revised to meet current compliance requirements. Jamshid Escobedo DO 12/01/2022 7:07:55 AM This report has been signed electronically. Number of Addenda: 0 Note Initiated On: 12/01/2022 6:44 AM
--- NOTE | 2022-12-01 07:08 | OP.CCLET_ITS ---
12/01/2022 Samanthaspring Chang Re : Colonoscopy procedure for Suha Chang This procedure was performed on Thursday, December 01, 2022. My impressions and recommendations are as follows: Impressions : - Congested mucosa in the recto-sigmoid colon, in the sigmoid colon, in the transverse colon and in the ascending colon. Biopsied. - The examined portion of the ileum was normal. Biopsied. Recommendations : - Discharge patient to home. - Resume previous diet. - Continue present medications. - Await pathology results. - Repeat colonoscopy in 10 years for surveillance based on pathology results. My findings are described in the full procedure note, which is enclosed. If I can be of further assistance, please feel free to contact me at . Sincerely, Jamshid Escobedo, 12/01/2022 7:07:55 AM This report has been signed electronically.
[2022-12-01 07:10] VITALS: BP 108/69; BP 125/77; PULSE 54; RESP 18; O2SAT 100
[2022-12-01 07:16] VITALS: BP 100/62; BP 125/77; PULSE 58; RESP 18; TEMP 36.8; O2SAT 100
[2022-12-01 07:25] VITALS: BP 125/77
== END 2022-12-01 07:35 | disposition home or self-care (01) ==
LOC: EN 05:24 → AC 05:24
PROVIDERS: Visit Provider Internal Medicine Gastroenterology
PROC: 0DJD8ZZ Inspection of Lower Intestinal Tract, Via Natural or Artificial Opening Endoscopic (ICD-10-PCS; CPT 45378; principal; 2022-12-01 06:25)
DX: K29.70 Gastritis, unspecified, without bleeding (principal); K21.9 Gastro-esophageal reflux disease without esophagitis; E66.9 Obesity, unspecified; K31.89 Other diseases of stomach and duodenum; K63.89 Other specified diseases of intestine; Z87.19 Personal history of other diseases of the digestive system
CPT/HCPCS: 43239; 45380; 88305; 88342; J7120; J2405

== ENCOUNTER → 2023-06-13 | Outpatient (CLI) | payer OTHER, SELFPAY ==
[2023-06-13 07:58] LABS: Absolute Lymphocyte Count 2.09 X10^3/uL (0.83-4.51); Absolute Neutrophil Count 4.5 X10^3/uL (2.0-7.7); Basophil# 0.05 X10^3/uL; Basophil% 0.7 % (0-1); Eosinophil# 0.33 X10^3/uL; Eosinophils% 4.3 % (0-5); Hematocrit 42.6 % (37-47); Hemoglobin 13.6 g/dL (12.0-15.0); Lymphocyte # 2.09 X10^3/ul (0.83-4.51); Lymphocyte % 27.5 % (19-41); Mean Corp Hgb Conc 31.9 g/dL (32-36); Mean Corpuscular Hgb 29.5 pg (27.0-32.0); Mean Corpuscular Volume 92.4 fL (81-99); Mean Platelet Vol. 10.8 fl (6.2-12.0); Monocyte# 0.58 X10^3/uL; Monocyte% 7.6 % (0-10); NRBC Flagged by Analyzer 0 % (0-5); Neutrophil # 4.52 X10^3/uL (2.7-7.7); Neutrophil % 59.5 % (47-70); Platelet Count 269 K/mm3 (150-450); RBC Distribution Width CV 11.8 % (11.6-14.6); RBC Distribution Width SD 39.8 fl (35.1-43.9); Red Blood Count 4.61 M/mm3 (4.2-5.4); White Blood Count 7.6 K/mm3 (4.4-11.0)
[2023-06-13 08:31] LABS: AST(SGOT) 13 U/L (15-37); Alanine Aminotransfer ALT/SGPT 22 U/L (13-56); Albumin, Serum 3.6 g/dL (3.2-5.0); Alkaline Phosphatase 78 U/L (45-117); Anion Gap 5 (5-15); BUN 10 mg/dL (7-18); BUN/Creat Ratio 11.6 RATIO (10-20); Calcium,Total 8.3 mg/dL (8.5-10.1); Chloride 109 mmol/L (98-107); Cholesterol 138 mg/dL (200); Creatinine, Serum 0.86 mg/dL (0.55-1.02); EST Glomerular Filtration Rate 79 mL/min (>60); Est Glom Filt Rate - Afr Amer 95 mL/min (>60); Globulin 3.5 g/dL (2.2-4.2); Glucose 94 mg/dL (74-106); High Density Lipoprotein 39 mg/dL; Potassium 3.7 mmol/L (3.5-5.1); Protein, Total 7.1 g/dL (6.4-8.2); Sodium Level 139 mmol/L (136-145); Thyroid Stim Hormone (TSH) 2.55 uIU/mL (0.358-3.74); Triglycerides 118 mg/dL; Very Low Density Lipoprotein 24 mg/dL (5-40)
== END | disposition home or self-care (01) ==
DX: E66.01 Morbid (severe) obesity due to excess calories (principal); F33.1 Major depressive disorder, recurrent, moderate
CPT/HCPCS: 36415; 80053; 80061; 84443; 85025

== ENCOUNTER → 2023-07-12 | Outpatient (CLI) | payer OTHER, SELFPAY ==
[2023-07-12 11:53] LABS: Erythrocyte Sedimentation Rate 3 mm/hr (0-30)
[2023-07-12 12:13] LABS: Rheumatoid Factor < 10.0 IU/mL (<15); Uric Acid 3.9 mg/dL (2.6-6.0)
[2023-07-14 20:08] LABS: Anti-Nuclear Antibody Test Negative (.)
== END | disposition home or self-care (01) ==
DX: M25.50 Pain in unspecified joint (principal)
CPT/HCPCS: 36415; 84550; 85652; 86038; 86431

== ENCOUNTER → 2023-07-31 | Outpatient (CLI) | payer OTHER, SELFPAY ==
--- NOTE | 2023-07-31 07:31 | BI_ITS ---
MAMMOGRAPHY - BILATERAL SCREENING REASON FOR EXAM: Female, 38 years old. Routine annual screening examination. PERTINENT HISTORY: Sister with breast cancer. TECHNIQUE: Digital bilateral breast codey (3D mammographic acquisition) in the CC and MLO projections. 2-D mediolateral oblique (MLO) and craniocaudad (CC) views of both breasts were obtained. CAD: Full Field Digital Mammography with Computer Added Detection was performed. COMPARISON: None. Baseline examination. FINDINGS: Breast Composition: The breasts are heterogeneously dense, which may obscure small masses. There are no dominant masses or suspicious calcifications. Small benign-appearing bilateral axillary lymph nodes. No other significant abnormalities are identified. BI/SCRN MAMM (CAD)W/CODEY BILAT IMPRESSION: Negative screening mammogram. Yearly followup mammogram recommended. (A) ASSESSMENT CATEGORY: Approximately 10% of breast cancers are not detected by mammography. A normal mammogram should not delay biopsy of a clinically suspicious abnormality. [id number] Electronically Signed: Tawanda Sutherland MD at 9:27 EDT ,
== END | disposition home or self-care (01) ==
DX: Z12.31 Encounter for screening mammogram for malignant neoplasm of breast (principal); Z80.3 Family history of malignant neoplasm of breast
CPT/HCPCS: 77063; 77067

== ENCOUNTER → 2023-12-29 | Outpatient (CLI) | payer OTHER, SELFPAY ==
--- NOTE | 2023-12-29 09:54 | NM_ITS ---
CLINICAL: 38-year-old female with history of clinical gastroparesis. SEMI-SOLID PHASE 99m Tc SULFUR COLLOID GASTRIC EMPTYING STUDY COMPARISON: Previous technetium sulfur colloid gastric emptying report dated 12/19/2010 FINDINGS: The patient was administered 1.2 mCi of 99m Tc sulfur colloid mixed with oatmeal and consumed per os. Image acquisitions in the anterior-posterior projections were obtained for 60 minutes. There is prompt visualization of the stomach. There is no gastroesophageal reflux identified. First order kinetics are maintained throughout the duration of the acquisitions. The T ? linear fit was extrapolated to be 71.13 minutes, (Normal: 12-56 minutes). NM/Gastric Emptying Study IMPRESSION: 1. ABNORMAL 99m Tc sulfur colloid semi-solid phase (oatmeal) gastric emptying imaging examination. A. There is delayed semi-solid phase gastric emptying compared to normal controls. (Emigdio et al, J Nucl Med Tech 38: 186, 2010). Electronically Signed: Leon Mcgovern DO at 22:46 EDT ,
== END | disposition home or self-care (01) ==
LOC: NM 09:53
PROVIDERS: Referring Provider Internal Medicine Gastroenterology; Visit Provider Internal Medicine Gastroenterology
DX: K58.9 Irritable bowel syndrome, unspecified (principal)
CPT/HCPCS: 78264; A9541

== ENCOUNTER → 2024-07-06 | Outpatient (CLI) | payer OTHER, SELFPAY ==
--- NOTE | 2024-07-06 16:22 | US_ITS ---
STUDY: ULTRASOUND OF THE FEMALE PELVIS - COMPLETE REASON FOR EXAM: Female, 39 years old. PELVIC PAIN LMP: TECHNIQUE: Transabdominal and Transvaginal TECHNICAL QUALITY: Adequate. COMPARISON: CT scan 10/07/2022. FINDINGS: Status post hysterectomy. The right ovary is visualized. The right ovary measures 2.7 x 2.7 x 2.0 cm. There is no right ovarian cyst or ovarian mass. There is no visualized right adnexal mass or complex lesion. There is normal arterial and normal venous vascularity. The left ovary is visualized. The left ovary measures 1.8 x 1.5 x 1.9 cm. There is no left ovarian cyst or ovarian mass. There is no visualized left adnexal mass or complex lesion. There is normal arterial and normal venous vascularity. There is no fluid in the cul-de-sac. US/Pelvic w/ Transvaginal IMPRESSION: Unremarkable status post hysterectomy. Electronically Signed: Anton Houser MD at 19:11 EDT ,
== END | disposition home or self-care (01) ==
LOC: US 16:20
PROVIDERS: PCP Family Medicine; Referring Provider Family Medicine; Visit Provider Family Medicine
DX: R10.2 Pelvic and perineal pain (principal)
CPT/HCPCS: 76830; 76856

== ENCOUNTER → 2024-07-24 | Outpatient (CLI) | payer OTHER, SELFPAY ==
--- OUTSIDE RECORDS SUMMARY | 2024-07-24 06:20 | XMS RPT_ITS | CCD ---
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 pain with long bouts of standing and walking for too long. She feels her tolerance to standing is greater than 1 hr. She gets temporary relief with DKTC. She also notes that lying supine for too long will wake her up at night, waking up 3+ times per night on average. 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 Pt has been feeling better and her pain has been decreasing to a 2/10 typically. OBJECTIVE MEASURES WITH LEVEL OF FUNCTION: TREATMENT: Therapeutic Exercise: 3: 4 step ups paloff double yellow band 3x15 4: Standing marches paloff 3x10 5: PPT kickouts 2x15 Skilled Intervention: Patient was educated in proper exercise technique and purpose for exercises. Correct performance of therapeutic exercises was facilitated with verbal cuing. Educated patient on rationale for performing exercises in regards to increase ease of ADL Patient education as noted. Billing: Thomas: Therapeutic Exercise ([id number]): 1:1 time: 41 minutes (3 units: 38-52 mins) Total time: 45 minutes Ebenezer Waite, JENNY I attest that I was present, not working on other tasks and directing this student during the entirety of this visit. Yonas Jain PT Previous Version [facility] PROGRESSon 11-04-2018 Protein mass conc HNO ID: [id number] Author: Yonas (Pt) JORDAN Jain Service: (none) Author Type: Physical Therapist Type: Progress Notes Filed: 11/04/2018 10:12 AM Note Text: Episode Visit Count: 6 Therapist That Will Oversee The Plan Of Care: Yonas Jain Start of Care Date: 08/26/18 Onset Date: 03/28/17 Patient Identified by Name and Date of : Yes REHABILITATION AND SPORTS THERAPY PHYSICAL THERAPY TREATMENT NOTE ASSESSMENT: Mellisa Rivas demonstrated difficulty towards the end of the day due to muscle fatigue causing her to lose some stability and increase her pain. Overall, pt is making good progress. The patient will continue to benefit from continued skilled physical therapy for improved motor control and pain management. Current Frequency: 1x every other week Duration: 4 weeks Total Number of Visits Planned: 2 Planned Treatment Interventions: Therapeutic exercise;Neuromuscular re-education;Manual therapy;Gait Training;Patient/Famil y/Caregiver Education PLAN FOR NEXT VISIT: continue with more motor control and movement retraining SUBJECTIVE: had son in march 2017. Pt notes pain with stairs, when she goes up with the left, having groin pain. She notes that her low back is her main complaint, feeling it in the lower lumbar/sacral region. She feels that her back is separate from her hip. She notes that she has pain with long bouts of standing and walking for too long. She feels her tolerance to standing is greater than 1 hr. She gets temporary relief with DKTC. She also notes that lying supine for too long will wake her up at night, waking up 3+ times per night on average. 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 Pt has been feeling better and her pain has been decreasing to a 2/10 typically. OBJECTIVE MEASURES WITH LEVEL OF FUNCTION: TREATMENT: Therapeutic Exercise: 3: 4 step ups paloff double yellow band 3x15 4: Standing marches paloff 3x10 5: PPT kickouts 2x15 Skilled Intervention: Patient was educated in proper exercise technique and purpose for exercises. Correct performance of therapeutic exercises was facilitated with verbal cuing. Educated patient on rationale for performing exercises in regards to increase ease of ADL Patient education as noted. Billing: Thomas: Therapeutic Exercise ([id number]): 1:1 time: 41 minutes (3 units: 38-52 mins) Total time: 45 minutes Ebenezer Waite, JENNY I attest that I was present, not working on other tasks and directing this student during the entirety of this visit. Yonas Jain PT [facility] CNTHERAPYon 10-22-2018 CNTHERAPY OT/PT/Speech Visit (AKPTB) MELLISA RIVAS ([id number]) 1985 F Date Time Provider Department 10/22/18 7:45 AM YONAS JAINPT) [place] Date Time Provider Department Center 10/22/2018 7:45 AM [id number]-XVCNYONAS JAINPT) [place] [facility] Reason for Visit: Physical Therapy [503] Primary Visit Diagnosis:Chronic bilateral low back pain without sciatica [M54.5, G89.29] Allergies As of Date: 10/22/2018 Noted Allergy Reaction BEES 01/14/2013 10 - Anaphylaxis PEANUTS 01/14/2013 10 - Anaphylaxis Date Reviewed: 11/28/2013 Reviewed by: Erica Shipman (Pa) - Fully Assessed Prescriptions as of 10/22/2018 Sig: PANTOPRAZOLE 40 MG TABLET,DEL* Take 1 tablet by mouth once d* PROBIOTIC COLON CARE ORAL Take by mouth. ZYRTEC-D ORAL Take by mouth. CLARITIN ORAL Take by mouth. MOTRIN ORAL Take by mouth as needed. NUVARING 0.12 MG -0.015 MG/24* Progress Notes: Yonas Jain, PT, PT 10/22/2018 8:29 AM Signed Episode Visit Count: 5 Therapist That Will Oversee The Plan Of Care: Yonas Gurjitgabriel Start of Care Date: 08/26/18 Onset Date: 03/28/17 REHABILITATION AND SPORTS THERAPY PHYSICAL THERAPY TREATMENT NOTE ASSESSMENT: Mellisa Rivas demonstrated improvements in exercise tolerance but still struggles with more difficult tasks that challenges her stability. The patient will continue to benefit from continued skilled physical therapy for further stabilization. PLAN FOR NEXT VISIT: continue with more motor control and movement retraining SUBJECTIVE: Pt states that she is having good days and bad days. Noting that this is better than last time we saw her. She notes sleeping a little better, but still impaired, just more by her son than her back pain. OBJECTIVE MEASURES WITH LEVEL OF FUNCTION: Lumbar flexion - WNL w/o pain (when initiating with PPT) TREATMENT: Therapeutic Exercise: 1: ab curl from 20 deg 3: PPT with hookling abduction 15x ea way 4: PPT with biopressure feedback cuff with marching 2 x 12 ea leg 5: PPT with kickouts 2 x 10 Skilled Intervention: Skilled judgment was provided in selection of appropriate interventions. Manual Therapy: 1: STM to mid thoracic 2: nonthrust PA mobs to mid thoracic grade 3-4 Skilled Intervention: Manual skills to improve joint mobility, ROM, and decrease pain. Utilized anatomy knowledge of the therapist, and assessment of patient's response to intervention. Billing: Thomas: Therapeutic Exercise ([id number]): 1:1 time: 30 minutes (2 units: 23-37 mins) Manual Therapy ([id number]): 1:1 time: 10 minutes (1 unit: 8-22 mins) Total time: 40 minutes Yonas Jain PT This encounter was completed in collaboration with licensed orthopaedic physical therapy fellow in training, Dr. Ed Dalal, PT. He was active in the care of this patient, either in full or partial. I was present during this encounter, providing mentorship and either full or partial treatment. Yonas Jain PT [facility] PROGRESSon 10-22-2018 Protein mass conc HNO ID: [id number] Author: Yonas (Pt) JORDAN Jain Service: (none) Author Type: Physical Therapist Type: Progress Notes Filed: 10/22/2018 8:29 AM Note Text: Episode Visit Count: 5 Therapist That Will Oversee The Plan Of Care: Yonas Jain Start of Care Date: 08/26/18 Onset Date: 03/28/17 REHABILITATION AND SPORTS THERAPY PHYSICAL THERAPY TREATMENT NOTE ASSESSMENT: Mellisa Rivas demonstrated improvements in exercise tolerance but still struggles with more difficult tasks that challenges her stability. The patient will continue to benefit from continued skilled physical therapy for further stabilization. PLAN FOR NEXT VISIT: continue with more motor control and movement retraining SUBJECTIVE: Pt states that she is having good days and bad days. Noting that this is better than last time we saw her. She notes sleeping a little better, but still impaired, just more by her son than her back pain. OBJECTIVE MEASURES WITH LEVEL OF FUNCTION: Lumbar flexion - WNL w/o pain (when initiating with PPT) TREATMENT: Therapeutic Exercise: 1: ab curl from 20 deg 3: PPT with hookling abduction 15x ea [address] 4: PPT with biopressure feedback cuff with marching 2 x 12 ea leg 5: PPT with kickouts 2 x 10 Skilled Intervention: Skilled judgment was provided in selection of appropriate interventions. Manual Therapy: 1: STM to mid thoracic 2: nonthrust PA mobs to mid thoracic grade 3-4 Skilled Intervention: Manual skills to improve joint mobility, ROM, and decrease pain. Utilized anatomy knowledge of the therapist, and assessment of patient's response to intervention. Billing: Thomas: Therapeutic Exercise ([id number]): 1:1 time: 30 minutes (2 units: 23-37 mins) Manual Therapy ([id number]): 1:1 time: 10 minutes (1 unit: 8-22 mins) Total time: 40 minutes Yonas Jain PT This encounter was completed in collaboration with licensed orthopaedic physical therapy fellow in training, Dr. Ed Dalal, PT. He was active in the care of this patient, either in full or partial. I was present during this encounter, providing mentorship and either full or partial treatment. Yonas Jain PT [facility] CNTHERAPYon 10-07-2018 CNTHERAPY OT/PT/Speech Visit (AKPTB) MELLISA RIVAS ([id number]) 1985 F Date Time Provider Department 10/07/18 10:45 AM YONAS JAINPT) [place] Date Time Provider Department Center 10/07/2018 10:45 AM [id number]-VYJOYONAS [facility]AINPT[facility] Reason for Visit: Physical Therapy [503] Primary Visit Diagnosis:Chronic bilateral low back pain without sciatica [M54.5, G89.29] Allergies As of Date: 10/07/2018 Noted Allergy Reaction BEES 01/14/2013 10 - Anaphylaxis PEANUTS 01/14/2013 10 - Anaphylaxis Date Reviewed: 11/28/2013 Reviewed by: Erica Shipman (Pa) - Fully Assessed Prescriptions as of 10/07/2018 Sig: PANTOPRAZOLE 40 MG TABLET,DEL* Take 1 tablet by mouth once d* PROBIOTIC COLON CARE ORAL Take by mouth. ZYRTEC-D ORAL Take by mouth. CLARITIN ORAL Take by mouth. MOTRIN ORAL Take by mouth as needed. NUVARING 0.12 MG -0.015 MG/24* Progress Notes: Yonas Jain, PT, PT 10/07/2018 12:56 PM Signed Episode Visit Count: 4 Therapist That Will Oversee The Plan Of Care: Yonas Caglegabriel Start of Care Date: 08/26/18 Onset Date: 03/28/17 REHABILITATION AND SPORTS THERAPY PHYSICAL THERAPY TREATMENT NOTE ASSESSMENT: Mellisa Rivas demonstrated improvements in pain reduction when initiating PPT and lumbar flexion prior to bending. she seems to be presenting with more of a motor control deficit as part of her core weakness. Pt was also slightly tearful today when describing how the past few weeks have been with the pain and also increases at work and lack of sleep. The patient will continue to benefit from continued skilled physical therapy for further stabilization. PLAN FOR NEXT VISIT: continue with more motor control and movement retraining SUBJECTIVE: Pt notes that she's still not seen much progress. Still notes pain with standing to do dishes, but also sleeping. She notes that she is getting about 2-3 hrs of sleep before she wakes up due to the pain. She also notes working 55 hrs/wk the last 2 weeks. OBJECTIVE MEASURES WITH LEVEL OF FUNCTION: Lumbar flexion - 90% with lower thoracic/TLJ pain Lumbar extension - 50% with stiffness CPA's - lower lumbar sensitive to palpation -slightly hypomobile T10-11 -symptomatic L2-L5 TREATMENT: Therapeutic Exercise: 1: angry cat 15x 2: seated flexion with PPT initiation 2 x 10 3: standing lumbar flexion with PPT initiation 2 x 10 4: PPT with biopressure feedback cuff with marching 2 x 12 ea leg Skilled Intervention: Skilled judgment was provided in selection of appropriate interventions. Manual Therapy: 1: STM to TLJ paraspinals 2: nonthrust PA's to lower thoracic and TLJ grade 3-4 Skilled Intervention: Manual skills to improve joint mobility, ROM, and decrease pain. Utilized anatomy knowledge of the therapist, and assessment of patient's response to intervention. Billing: Thomas: Therapeutic Exercise ([id number]): 1:1 time: 32 minutes (2 units: 23-37 mins) Manual Therapy ([id number]): 1:1 time: 12 minutes (1 unit: 8-22 mins) Total time: 44 minutes Yonas Jain PT This encounter was completed in collaboration with licensed orthopaedic geophysical party chief Dustin Dooley, PT. He was active in the care of this patient, either in full or partial. I was present during this encounter, providing mentorship and either full or partial treatment. Yonas Jain PT [facility] PROGRESSon 10-07-2018 Protein mass conc HNO ID: [id number] Author: Yonas (Pt) JORDAN Jain Service: (none) Author Type: Physical Therapist Type: Progress Notes Filed: 10/07/2018 12:56 PM Note Text: Episode Visit Count: 4 Therapist That Will Oversee The Plan Of Care: Yonas Jain Start of Care Date: 08/26/18 Onset Date: 03/28/17 REHABILITATION AND SPORTS THERAPY PHYSICAL THERAPY TREATMENT NOTE ASSESSMENT: Mellisa Rivas demonstrated improvements in pain reduction when initiating PPT and lumbar flexion prior to bending. she seems to be presenting with more of a motor control deficit as part of her core weakness. Pt was also slightly tearful today when describing how the past few weeks have been with the pain and also increases at work and lack of sleep. The patient will continue to benefit from continued skilled physical therapy for further stabilization. PLAN FOR NEXT VISIT: continue with more motor control and movement retraining SUBJECTIVE: Pt notes that she's still not seen much progress. Still notes pain with standing to do dishes, but also sleeping. She notes that she is getting about 2-3 hrs of sleep before she wakes up due to the pain. She also notes working 55 hrs/wk the last 2 weeks. OBJECTIVE MEASURES WITH LEVEL OF FUNCTION: Lumbar flexion - 90% with lower thoracic/TLJ pain Lumbar extension - 50% with stiffness CPA's - lower lumbar sensitive to palpation -slightly hypomobile T10-11 -symptomatic L2-L5 TREATMENT: Therapeutic Exercise: 1: angry cat 15x 2: seated flexion with PPT initiation 2 x 10 3: standing lumbar flexion with PPT initiation 2 x 10 4: PPT with biopressure feedback cuff with marching 2 x 12 ea leg Skilled Intervention: Skilled judgment was provided in selection of appropriate interventions. Manual Therapy: 1: STM to TLJ paraspinals 2: nonthrust PA's to lower thoracic and TLJ grade 3-4 Skilled Intervention: Manual skills to improve joint mobility, ROM, and decrease pain. Utilized anatomy knowledge of the therapist, and assessment of patient's response to intervention. Billing: Thomas: Therapeutic Exercise ([id number]): 1:1 time: 32 minutes (2 units: 23-37 mins) Manual Therapy ([id number]): 1:1 time: 12 minutes (1 unit: 8-22 mins) Total time: 44 minutes Yonas Jain PT This encounter was completed in collaboration with licensed orthopaedic geophysical party chief Dustin Dooley PT. He was active in the care of this patient, either in full or partial. I was present during this encounter, providing mentorship and either full or partial treatment. Yonas Jain PT [facility] CNTHERAPYon 09-23-2018 CNTHERAPY OT/PT/Speech Visit (AKPTB) MELLISA RIVAS ([id number]) 1985 F Date Time Provider Department 09/23/18 7:00 AM [facility]AIN[facility]) [place] Date Time Provider Department Center 09/23/2018 7:00 AM [id number]-GYQ[facility]ONAS [facility]AINPT[facility] Reason for Visit: PT Progress Note [1596] Primary Visit Diagnosis:Chronic bilateral low back pain without sciatica [M54.5, G89.29] Allergies As of Date: 09/23/2018 Noted Allergy Reaction BEES 01/14/2013 10 - Anaphylaxis PEANUTS 01/14/2013 10 - Anaphylaxis Date Reviewed: 11/28/2013 Reviewed by: Erica Shipman (Pa) - Fully Assessed Prescriptions as of 09/23/2018 Sig: ZYRTEC-D ORAL Take by mouth. MOTRIN ORAL Take by mouth as needed. PROBIOTIC COLON CARE ORAL Take by mouth. CLARITIN ORAL Take by mouth. NUVARING 0.12 MG -0.015 MG/24* PANTOPRAZOLE 40 MG TABLET,DEL* Take 1 tablet by mouth once d* Progress Notes: Yonas Jain, PT, PT 09/23/2018 7:49 AM Signed Episode Visit Count: 3 Therapist That Will Oversee The Plan Of Care: Yonas Jain Start of Care Date: 08/26/18 Onset Date: 03/28/17 REHABILITATION AND SPORTS THERAPY PHYSICAL THERAPY PROGRESS REPORT PLAN OF CARE UPDATE: Assessment: Mellisa Rivas exhibits difficulty with prolonged standing and carrying of her son. This still is typical of lack of functional stability. She had improvement in right SB post manual therapy. She continues to be limited with standing and lifting. She is progressing as expected towards her therapy goals as demonstrated by: home exercise program compliance and pain levels. She will benefit from continued skilled therapy requiring further stabilization in order to improve the above mentioned areas, as these are still having a considerable effect on the patients overall physical function. . Functional gains: Increased independence with HEP Increased ROM Goals for Episode of Care: created on 08/26/18 through 10/21/18 Independent in home exercises. - progressing Patient will decrease pain to 1/10 with functional activities to allow patient to improve ambulation and transfers. - not met Restore pain-free lumbar ROM to WNL to allow for return to baseline Abilities. - improving Stand / Walk 1 hr without pain/symptoms. - progressing Sit 1 hours without pain/symptoms to allow for improved work Documentation. - not met Planned Interventions, Frequency, and Duration: 1x every other week, 4 weeks Total Number of Visits Planned: 2 Patient to be seen for Therapeutic exercise;Neuromuscular re-education;Manual therapy;Gait Training;Patient/Famil y/Caregiver Education PLAN FOR NEXT VISIT: Continue to progress core stabilization as pimary treatment SUBJECTIVE: . Pt notes that she was starting to feel better but then had a flare up about a week and a half ago, for unknown reason. OBJECTIVE MEASURES WITH LEVEL OF FUNCTION: No change with standing repeated movements Lumbar extension - pain at endrange Right SB - pain at end range on left Hinging at L2-3 level Segmental exam: Hypomobile lower thoracic and TLJ Symptomatic at L2-5 - sensitivity to light touch in lower lumbar TREATMENT: Therapeutic Exercise: 1: ab crunch with arms at side 3 x 12 3: prone right LE lift 4 x 10 Skilled Intervention: Skilled judgment was provided in selection of appropriate interventions. Manual Therapy: 1: STM to TLJ paraspinals 2: nonthrust PA's to lower thoracic and TLJ grade 3-4 Skilled Intervention: Manual skills to improve joint mobility, ROM, and decrease pain. Utilized anatomy knowledge of the therapist, and assessment of patient's response to intervention. Billing: Thomas: Therapeutic Exercise ([id number]): 1:1 time: 20 minutes (1 unit: 8-22 mins) Manual Therapy ([id number]): 1:1 time: 10 minutes (1 unit: 8-22 mins) Total time: 30 minutes Yonas Jain PT [facility] PROGRESSon 09-23-2018 Protein mass conc HNO ID: [id number] Author: Yonas (Pt) JORDAN Jain Service: (none) Author Type: Physical Therapist Type: Progress Notes Filed: 09/23/2018 7:49 AM Note Text: Episode Visit Count: 3 Therapist That Will Oversee The Plan Of Care: Yonas Jain Start of Care Date: 08/26/18 Onset Date: 03/28/17 REHABILITATION AND SPORTS THERAPY PHYSICAL THERAPY PROGRESS REPORT PLAN OF CARE UPDATE: Assessment: Mellisa Rivas exhibits difficulty with prolonged standing and carrying of her son. This still is typical of lack of functional stability. She had improvement in right SB post manual therapy. She continues to be limited with standing and lifting. She is progressing as expected towards her therapy goals as demonstrated by: home exercise program compliance and pain levels. She will benefit from continued skilled therapy requiring further stabilization in order to improve the above mentioned areas, as these are still having a considerable effect on the patients overall physical function. . Functional gains: Increased independence with HEP Increased ROM Goals for Episode of Care: created on 08/26/18 through 10/21/18 Independent in home exercises. - progressing Patient will decrease pain to 1/10 with functional activities to allow patient to improve ambulation and transfers. - not met Restore pain-free lumbar ROM to WNL to allow for return to baseline Abilities. - improving Stand / Walk 1 hr without pain/symptoms. - progressing Sit 1 hours without pain/symptoms to allow for improved work Documentation. - not met Planned Interventions, Frequency, and Duration: 1x every other week, 4 weeks Total Number of Visits Planned: 2 Patient to be seen for Therapeutic exercise;Neuromuscular re-education;Manual therapy;Gait Training;Patient/Famil y/Caregiver Education PLAN FOR NEXT VISIT: Continue to progress core stabilization as pimary treatment SUBJECTIVE: . Pt notes that she was starting to feel better but then had a flare up about a week and a half ago, for unknown reason. OBJECTIVE MEASURES WITH LEVEL OF FUNCTION: No change with standing repeated movements Lumbar extension - pain at endrange Right SB - pain at end range on left Hinging at L2-3 level Segmental exam: Hypomobile lower thoracic and TLJ Symptomatic at L2-5 - sensitivity to light touch in lower lumbar TREATMENT: Therapeutic Exercise: 1: ab crunch with arms at side 3 x 12 3: prone right LE lift 4 x 10 Skilled Intervention: Skilled judgment was provided in selection of appropriate interventions. Manual Therapy: 1: STM to TLJ paraspinals 2: nonthrust PA's to lower thoracic and TLJ grade 3-4 Skilled Intervention: Manual skills to improve joint mobility, ROM, and decrease pain. Utilized anatomy knowledge of the therapist, and assessment of patient's response to intervention. Billing: Thomas: Therapeutic Exercise ([id number]): 1:1 time: 20 minutes (1 unit: 8-22 mins) Manual Therapy ([id number]): 1:1 time: 10 minutes (1 unit: 8-22 mins) Total time: 30 minutes Yonas Jain PT [facility] CNTHERAPYon 09-01-2018 CNTHERAPY OT/PT/Speech Visit (AKPTB) MELLISA RIVAS ([id number]) 1985 F Date Time Provider Department 09/01/18 7:00 AM YONAS JAIN (PT) [facility] Date Time Provider Department Center 09/01/2018 7:00 AM [id number], PHILIP (PT) [facility]PT[facility] Reason for Visit: Physical Therapy [503] Primary Visit Diagnosis:Chronic bilateral low back pain without sciatica [M54.5, G89.29] Allergies As of Date: 09/01/2018 Noted Allergy Reaction BEES 01/14/2013 10 - Anaphylaxis PEANUTS 01/14/2013 10 - Anaphylaxis Date Reviewed: 11/28/2013 Reviewed by: Erica Shipman (Pa) - Fully Assessed Prescriptions as of 09/01/2018 Sig: PANTOPRAZOLE 40 MG TABLET,DEL* Take 1 tablet by mouth once d* PROBIOTIC COLON CARE ORAL Take by mouth. ZYRTEC-D ORAL Take by mouth. CLARITIN ORAL Take by mouth. MOTRIN ORAL Take by mouth as needed. NUVARING 0.12 MG -0.015 MG/24* Progress Notes: Yonas Jain PT, PT 09/01/2018 7:44 AM Signed Episode Visit Count: 2 Therapist That Will Oversee The Plan Of Care: Yonas Jain Start of Care Date: 08/26/18 Onset Date: 03/28/17 REHABILITATION AND SPORTS THERAPY PHYSICAL THERAPY TREATMENT NOTE ASSESSMENT: Mellisa Rivas demonstrated some motor control issues while lifting her right LE in prone. It was corrected with cuing. The patient will continue to benefit from continued skilled physical therapy for further stabilization. PLAN FOR NEXT VISIT: Continue with core stabilization as primary treatment. SUBJECTIVE: Pt notes no worse with her HEP. Still feels that prolonged positions are her worst task that increase her LBP. OBJECTIVE MEASURES WITH LEVEL OF FUNCTION: TREATMENT: Therapeutic Exercise: 3: prone right LE lift 4 x 10 4: paloff's black [address] 5: modified planks 10 x 10 Skilled Intervention: Skilled judgment was provided in selection of appropriate interventions. Billing: Thomas: Therapeutic Exercise ([id number]): 1:1 time: 32 minutes (2 units: 23-37 mins) Total time: 32 minutes Yonas Jain, PT [facility] [facility] PROGRESSon 09-01-2018 Protein mass conc HNO ID: [id number] Author: Yonas FayPt) JORDAN Jain Service: (none) Author Type: Physical Therapist Type: Progress Notes Filed: 09/01/2018 7:44 AM Note Text: Episode Visit Count: 2 Therapist That Will Oversee The Plan Of Care: Yonas Jian Start of Care Date: 08/26/18 Onset Date: 03/28/17 [facility]AB[facility]ATION [facility] SPORTS THERAPY PHYSICAL THERAPY TREATMENT NOTE ASSESSMENT: Mellisa Rivas demonstrated some motor control issues while lifting her right LE in prone. It was corrected with cuing. The patient will continue to benefit from continued skilled physical therapy for further stabilization. PLAN FOR NEXT VISIT: Continue with core stabilization as primary treatment. SUBJECTIVE: Pt notes no worse with her HEP. Still feels that prolonged positions are her worst task that increase her LBP. OBJECTIVE MEASURES WITH LEVEL OF FUNCTION: TREATMENT: Therapeutic Exercise: 3: prone right LE lift 4 x 10 4: paloff's black [address] 5: modified planks 10 x 10 Skilled Intervention: Skilled judgment was provided in selection of appropriate interventions. Billing: Thomas: Therapeutic Exercise (51502): 1:1 time: 32 minutes (2 units: 23-37 mins) Total time: 32 minutes JORDAN Dan [facility] CNTHERAPYon 08-26-2018 CNTHERAPY OT/PT/Speech Visit (AKPTB) MELLISA RIVAS ([id number]) 1985 F Date Time Provider Department 08/26/18 9:00 AM YONAS JAINPT) [place] Date Time Provider Department Center 08/26/2018 9:00 AM [id number] JAINPT) [facility] Reason for Visit: PT Tia [[id number]] Primary Visit Diagnosis:Chronic bilateral low back pain without sciatica [M54.5, G89.29] Allergies As of Date: 08/26/2018 Noted Allergy Reaction BEES 01/14/2013 10 - Anaphylaxis PEANUTS 01/14/2013 10 - Anaphylaxis Date Reviewed: 11/28/2013 Reviewed by: Erica Shipman (Pa) - Fully Assessed Prescriptions as of 08/26/2018 Sig: PANTOPRAZOLE 40 MG TABLET,DEL* Take 1 tablet by mouth once d* PROBIOTIC COLON CARE ORAL Take by mouth. ZYRTEC-D ORAL Take by mouth. CLARITIN ORAL Take by mouth. MOTRIN ORAL Take by mouth as needed. NUVARING 0.12 MG -0.015 MG/24* Progress Notes: Yonas Jain, PT, PT 08/26/2018 1:22 PM Signed Episode Visit Count: 1 Therapist That Will Oversee The Plan Of Care: Yonas Jain Start of Care Date: 08/26/18 Onset Date: 03/28/17 Patient Identified by Name and Date of : Yes REHABILITATION AND SPORTS THERAPY PHYSICAL THERAPY EVALUATION PLAN OF CARE: Assessment: Mellisa Rivas presents with the chief complaint of central low back pain that seems to be consistent with functional instability of the lumbopelvic region. Salient features today were: Sensitivity and familiar pain with PA's in the lower lumbar region and sacrum, motor control impairments with prone leg lift and endrange extension pain. She presents with impairments of pain, decreased ROM and weakness. She may benefit from skilled therapy services to improve the above mentioned areas, as these are still having a considerable effect on the patients overall physical function. . Classification Low Back Pain Subgroup Classification: Core stabilization subgroup: recommended visits 10. Core Stabilization Subgroup Classification based on: segmental hinging;aberrant movements;pain with transitional movements Prognosis: Good Good due to: current objective clinical presentation Goals for Episode of Care: created on 08/26/18 through 10/21/18 Independent in home exercises. Patient will decrease pain to 1/10 with functional activities to allow patient to improve ambulation and transfers. Restore pain-free lumbar ROM to WNL to allow for return to baseline abilities. Stand / Walk 1 hr without pain/symptoms. Sit 1 hours without pain/symptoms to allow for improved work documentation. Planned Interventions, Frequency, and Duration: Current Frequency: 1x/week Duration: 4 weeks Total Number of Visits Planned: 4 Planned Treatment Interventions: PLAN FOR NEXT VISIT: Continue with core stabilization as primary treatment. Patient demonstrates good understanding of plan of care and treatment. The above goals and plan of care were discussed and agreed upon by patient/family. SUBJECTIVE: Mellisa Rivas is a 33 year old female seen today for had son in march 2017. Pt notes pain with stairs, when she goes up with the left, having groin pain. She notes that her low back is her main complaint, feeling it in the lower lumbar/sacral region. She feels that her back is separate from her hip. She notes that she has pain with long bouts of standing and walking for too long. She feels her tolerance to standing is greater than 1 hr. She gets temporary relief with DKTC. She also notes that lying supine for too long will wake her up at night, waking up 3+ times per night on average. 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 again and return back to baseline Functional Limitations: standing;sitting;walki ng Prior Level of Function: Independent without limitations Intake Information: Prescription present Previous Treatment: None Pain Score: 3/10 Pain Location: Low Back/Lumbar Spine - Left;Low Back/Lumbar Spine - Right Description: Aching Frequency: Continuous Red Flags Vertebral Fracture Clinical Reasoning: No identified risk factors Abdominal Aortic Aneurysm Clinical Reasoning: No identified risk factors. Cancer Clinical Reasoning: No identified risk factors. Infection Clinical Reasoning: No identified risk factors. Cauda Equina Syndrome Clinical Reasoning: No identified risk factors. Red Flags - Cervical Cancer Clinical Reasoning: No identified risk factors. Infection Clinical Reasoning: No identified risk factors. OBJECTIVE MEASURES WITH LEVEL OF FUNCTION: Lumbar Spine AROM Lumbar Flexion: Normal Lumbar Extension: Minimal limitation LE AROM L Hip Internal Rotation: 45 Degrees (with groin pain) L Hip External Rotation: 45 Degrees (with familiar groin pain) Spine Joint Mobility Joint Mobility Comment: tender to palpate L4-S1 B Special Tests - Hip and Spine Thigh Thrust Test: Left Positive SI Distraction Test: Left Positive SI Compression Test: Left Negative Sacral Thrust: Left Negative Pelvic Torsion (Gaenslen's): Left Negative Education: Education Learning Preferences: Explanation;Demonstrat ion Barriers: None Learning/educational needs: Home exercise program;Plan of Care Education Provided: Yes, see treatment interventions for education provided Education Provided To: Patient Education Mode/Type: Demonstration;Explanat ion/Discussion Response to Education/Teach Back: States/Identifies;Retu rn Demonstration TREATMENT: Evaluation Therapeutic Exercise: 1: Trans Abd in hooklying 10x 2: Trans abd in SL 3 x 10 Skilled Intervention: Skilled judgment was provided in selection of appropriate interventions. Billing: Thomas: Evaluation - Low Complexity (42302) Therapeutic Exercise (28089): 1:1 time: 10 minutes (1 unit: 8-22 mins) Total time: 45 minutes Yonas Jain PT Normal [facility] PROGRESSon 08-26-2018 Protein mass conc HNO ID: [id number] Author: Yonsa (Pt) JORDAN Jain Service: (none) Author Type: Physical Therapist Type: Progress Notes Filed: 08/26/2018 1:22 PM Note Text: Episode Visit Count: 1 Therapist That Will Oversee The Plan Of Care: Yonas Jian Start of Care Date: 08/26/18 Onset Date: 03/28/17 Patient Identified by Name and Date of : Yes REHABILITATION AND SPORTS THERAPY PHYSICAL THERAPY EVALUATION PLAN OF CARE: Assessment: Mellisa Rivas presents with the chief complaint of central low back pain that seems to be consistent with functional instability of the lumbopelvic region. Salient features today were: Sensitivity and familiar pain with PA's in the lower lumbar region and sacrum, motor control impairments with prone leg lift and endrange extension pain. She presents with impairments of pain, decreased ROM and weakness. She may benefit from skilled therapy services to improve the above mentioned areas, as these are still having a considerable effect on the patients overall physical function. . Classification Low Back Pain Subgroup Classification: Core stabilization subgroup: recommended visits 10. Core Stabilization Subgroup Classification based on: segmental hinging;aberrant movements;pain with transitional movements Prognosis: Good Good due to: current objective clinical presentation Goals for Episode of Care: created on 08/26/18 through 10/21/18 Independent in home exercises. Patient will decrease pain to 1/10 with functional activities to allow patient to improve ambulation and transfers. Restore pain-free lumbar ROM to WNL to allow for return to baseline abilities. Stand / Walk 1 hr without pain/symptoms. Sit 1 hours without pain/symptoms to allow for improved work documentation. Planned Interventions, Frequency, and Duration: Current Frequency: 1x/week Duration: 4 weeks Total Number of Visits Planned: 4 Planned Treatment Interventions: PLAN FOR NEXT VISIT: Continue with core stabilization as primary treatment. Patient demonstrates good understanding of plan of care and treatment. The above goals and plan of care were discussed and agreed upon by patient/family. SUBJECTIVE: Mellisa Rivas is a 33 year old female seen today for had son in march 2017. Pt notes pain with stairs, when she goes up with the left, having groin pain. She notes that her low back is her main complaint, feeling it in the lower lumbar/sacral region. She feels that her back is separate from her hip. She notes that she has pain with long bouts of standing and walking for too long. She feels her tolerance to standing is greater than 1 hr. She gets temporary relief with DKTC. She also notes that lying supine for too long will wake her up at night, waking up 3+ times per night on average. 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 again and return back to baseline Functional Limitations: standing;sitting;walki ng Prior Level of Function: Independent without limitations Intake Information: Prescription present Previous Treatment: None Pain Score: 3/10 Pain Location: Low Back/Lumbar Spine - Left;Low Back/Lumbar Spine - Right Description: Aching Frequency: Continuous Red Flags Vertebral Fracture Clinical Reasoning: No identified risk factors Abdominal Aortic Aneurysm Clinical Reasoning: No identified risk factors. Cancer Clinical Reasoning: No identified risk factors. Infection Clinical Reasoning: No identified risk factors. Cauda Equina Syndrome Clinical Reasoning: No identified risk factors. Red Flags - Cervical Cancer Clinical Reasoning: No identified risk factors. Infection Clinical Reasoning: No identified risk factors. OBJECTIVE MEASURES WITH LEVEL OF FUNCTION: Lumbar Spine AROM Lumbar Flexion: Normal Lumbar Extension: Minimal limitation LE AROM L Hip Internal Rotation: 45 Degrees (with groin pain) L Hip External Rotation: 45 Degrees (with familiar groin pain) Spine Joint Mobility Joint Mobility Comment: tender to palpate L4-S1 B Special Tests - Hip and Spine Thigh Thrust Test: Left Positive SI Distraction Test: Left Positive SI Compression Test: Left Negative Sacral Thrust: Left Negative Pelvic Torsion (Gaenslen's): Left Negative Education: Education Learning Preferences: Explanation;Demonstrat ion Barriers: None Learning/educational needs: Home exercise program;Plan of Care Education Provided: Yes, see treatment interventions for education provided Education Provided To: Patient Education Mode/Type: Demonstration;Explanat ion/Discussion Response to Education/Teach Back: States/Identifies;Retu rn Demonstration TREATMENT: Evaluation Therapeutic Exercise: 1: Trans Abd in hooklying 10x 2: Trans abd in SL 3 x 10 Skilled Intervention: Skilled judgment was provided in selection of appropriate interventions. Billing: [place]: Evaluation - Low Complexity (78498) Therapeutic Exercise (05960): 1:1 time: 10 minutes (1 unit: 8-22 mins) Total time: 45 minutes Yonas Jain PT Normal [facility] .Auto Diffon 08-04-2018 Ammonia (P) [Mass/Vol] 0.30 10 3/mcL Normal 0.15-1.00 [facility] ([place]) Comment on above: Performed By: #### C SAJI DOMINGUEZ ANEU #### [address] [address] #### TROP, GFR, CMP #### [address] [address] Basophils (Bld) [#/Vol] 0.00 10 3/mcL Normal 0.00-0.19 [facility] ([place]) Comment on above: Performed By: #### C SAJI DOMINGUEZ ANEU #### [address] [address] #### TROP, GFR, CMP #### [address] [address] Basophils/100 WBC (Bld) 0.7 % Normal 0.0-2.5 [facility] ([place]) Comment on above: Performed By: #### C SAJI DOMINGUEZ ANEU #### [address] [address] #### TROP, GFR, CMP #### [address] [address] Eosinophils (Bld) [#/Vol] 0.10 10 3/mcL Normal 0.00-0.40 [facility] ([place]) Comment on above: Performed By: #### C BC, ADIFF, ANEU #### [address] [address] #### TROP, GFR, CMP #### [address] [address] Eosinophils/100 WBC (Bld) 3.3 % Normal 0.0-7.0 [facility] ([place]) Comment on above: Performed By: #### C BC, ADIFF, ANEU #### [address] [address] #### TROP, GFR, CMP #### [address] [address] Lymphocytes (Bld) [#/Vol] 1.80 10 3/mcL Normal 0.77-3.85 [facility] ([place]) Comment on above: Performed By: #### C BC, ADIFF, ANEU #### [address] [address] #### TROP, GFR, CMP #### [address] [address] Lymphocytes/100 WBC (Bld) 44.3 % Normal 10.0-50.0 [facility] ([place]) Comment on above: Performed By: #### C BC, ADIFF, ANEU #### [address] [address] #### TROP, GFR, CMP #### [address] [address] Monocytes/100 WBC (Bld) 8.3 % Normal 1.7-13.0 [facility] ([place]) Comment on above: Performed By: #### C BC, ADIFF, ANEU #### [address] [address] #### TROP, GFR, CMP #### [address] [address] Neutrophils/100 WBC (Bld) 43.4 % Normal 37.0-80.0 [facility] ([place]) Comment on above: Performed By: #### C BC, ADIFF, ANEU #### [address] [place], [place] [address] #### TROP, GFR, CMP #### [facility] [address] [place] [address] .GFRon 08-04-2018 GFR 70 ml/min/1.73sqm Normal [facility] ([place]) Comment on above: Result Comment: GFR Population mean for , Non- Americans Ages 20-29 = 116 mL/min/1.73 sq.m. Ages 30-39 = 107 mL/min/1.73 sq.m. Ages 40-49 = 99 mL/min/1.73 sq.m. Ages 50-59 = 93 mL/min/1.73 sq.m. Ages 60-69 = 85 mL/min/1.73 sq.m. Ages 70+ = 75 mL/min/1.73 sq.m. Chronic Kidney Disease: Less than 60 mL/min/1.73 square meters End Stage Renal Disease: Less than 15 mL/min/1.73 square meters Performed By: #### C BC, ADIFF, ANEU #### [address] [place], [place] [address] #### TROP, GFR, CMP #### [facility] [address] [place] [address] GFR Non- 58 ml/min/1.73sqm Normal [facility] ([place]) Comment on above: Result Comment: GFR Population mean for , Non- Americans Ages 20-29 = 116 mL/min/1.73 sq.m. Ages 30-39 = 107 mL/min/1.73 sq.m. Ages 40-49 = 99 mL/min/1.73 sq.m. Ages 50-59 = 93 mL/min/1.73 sq.m. Ages 60-69 = 85 mL/min/1.73 sq.m. Ages 70+ = 75 mL/min/1.73 sq.m. Chronic Kidney Disease: Less than 60 mL/min/1.73 square meters End Stage Renal Disease: Less than 15 mL/min/1.73 square meters Performed By: #### C BC, ADIFF, ANEU #### [address] [address] #### TROP, GFR, CMP #### [address] [address] .NEUABSon 08-04-2018 Neutrophils (Bld) [#/Vol] 1.80 10 3/mcL Low 2.85-6.16 [facility] ([place]) Comment on above: Performed By: #### C BC, ADIFF, ANEU #### [place] [address] #### TROP, GFR, CMP #### [address] [address] CBCon 08-04-2018 Erythrocyte distribution width (RBC) [Ratio] 12.5 % Normal 11.5-14.5 [facility] ([place]) Comment on above: Performed By: #### C ANGELICA, JOSEEIFF, ANEU #### [place] [address] #### TROP, GFR, CMP #### [place] [address] Hematocrit (Bld) [Volume fraction] 42.1 % Normal 37.0-47.0 [facility] ([place]) Comment on above: Performed By: #### C BC, ADIFF, ANEU #### [place] [address] #### TROP, GFR, CMP #### [place] [address] Hemoglobin (Bld) [Mass/Vol] 14.1 G/dL Normal 12.0-16.0 [facility] ([place]) Comment on above: Performed By: #### C BC, ADIFF, ANEU #### [place] [address] #### TROP, GFR, CMP #### [place] [address] MCH (RBC) [Entitic mass] 29.5 pg Normal 27.0-31.2 [facility] ([place]) Comment on above: Performed By: #### C BC, ADIFF, ANEU #### [address] [address] #### TROP, GFR, CMP #### [address] [address] MCHC (RBC) [Mass/Vol] 33.4 G/dL Normal 33.0-37.0 [facility] ([place]) Comment on above: Performed By: #### C BC, ADIFF, ANEU #### [place] [address] #### TROP, GFR, CMP #### [address] [address] MCV (RBC) [Entitic vol] 88.2 fL Normal 80.0-94.0 [facility] ([place]) Comment on above: Performed By: #### C BC, ADIFF, ANEU #### [address] [address] #### TROP, GFR, CMP #### [place] [address] Platelet mean volume (Bld) [Entitic vol] 8.6 fL Normal 7.4-10.4 [facility] ([place]) Comment on above: Performed By: #### C BC, ADIFF, ANEU #### [address] [address] #### TROP, GFR, CMP #### [place] [address] Platelets (Bld) [#/Vol] 170 10 3/mcL Normal 130-400 [facility] ([place]) Comment on above: Performed By: #### C BC, ADIFF, ANEU #### [address] [address] #### TROP, GFR, CMP #### [place] [id number] RBC (Bld) [#/Vol] 4.77 10 6/mcL Normal 4.20-5.40 [facility] ([place]) Comment on above: Performed By: #### C BC, ADIFF, ANEU #### [place] [address] #### TROP, GFR, CMP #### [place] [address] WBC (Bld) [#/Vol] 4.10 10 3/mcL Low 4.60-10.80 [facility] ([place]) Comment on above: Performed By: #### C BC, ADIFF, ANEU #### [place] [address] #### TROP, GFR, CMP #### [place] [address] CMPon 08-04-2018 ALP [Catalytic activity/Vol] 83 U/L Normal 40-135 [facility] ([place]) Comment on above: Performed By: #### C BC, ADIFF, ANEU #### [place] [address] #### TROP, GFR, CMP #### [place] [address] ALT [Catalytic activity/Vol] 39 U/L High 10-35 [facility] ([place]) Comment on above: Performed By: #### C BC, ADIFF, ANEU #### [place] [address] #### TROP, GFR, CMP #### [place] [address] AST [Catalytic activity/Vol] 23 U/L Normal 10-40 [facility] ([place]) Comment on above: Performed By: #### C BC, ADIFF, ANEU #### [place] [address] #### TROP, GFR, CMP #### [place] [address] Bili Total 0.3 mg/dL Normal 0.2-1.0 [facility] ([place]) Comment on above: Performed By: #### C BC, ADIFF, ANEU #### [place] [address] #### TROP, GFR, CMP #### [address] [address] Calcium [Mass/Vol] 8.5 mg/dL Normal 8.4-10.2 [facility] ([place]) Comment on above: Performed By: #### C BC, ADIFF, ANEU #### [address] [address] #### TROP, GFR, CMP #### [address] [address] Chloride [Moles/Vol] 103 mmol/L Normal 98-107 [facility] ([place]) Comment on above: Performed By: #### C BC, ADIFF, ANEU #### [address] [address] #### TROP, GFR, CMP #### [address] [address] CO2 [Moles/Vol] 25 mmol/L Normal 22-29 [facility] ([place]) Comment on above: Performed By: #### C BC, ADIFF, ANEU #### [address] [address] #### TROP, GFR, CMP #### [address] [address] Electrolyte Balance 10.0 mEq/L Normal [facility] ([place]) Comment on above: Performed By: #### C BC, ADIFF, ANEU #### [address] [address] #### TROP, GFR, CMP #### [address] [address] Glucose [Mass/Vol] 106 mg/dL High 70-105 [facility] ([place]) Comment on above: Performed By: #### C BC, ADIFF, ANEU #### [address] [address] #### TROP, GFR, CMP #### [address] [address] Potassium [Moles/Vol] 3.8 mmol/L Normal 3.5-5.1 [facility] ([place]) Comment on above: Performed By: #### C BC, ADIFF, ANEU #### [address] [address] #### TROP, GFR, CMP #### [address] [address] Sodium [Moles/Vol] 138 mmol/L Normal 136-145 [facility] ([place]) Comment on above: Performed By: #### C BC, ADIFF, ANEU #### [address] [address] #### TROP, GFR, CMP #### [address] [address] Albumin [Mass/Vol] 3.3 G/dL Low 3.5-5.0 [facility] ([place]) Comment on above: Performed By: #### C BC, ADIFF, ANEU #### [address] [address] #### TROP, GFR, CMP #### [address] [address] Albumin/Globulin [Mass ratio] 1.0 {ratio} Low 1.1-2.5 [facility] ([place]) Comment on above: Performed By: #### C BC, ADIFF, ANEU #### [address] [address] #### TROP, GFR, CMP #### [address] [address] Creatinine [Mass/Vol] 1.10 mg/dL High 0.55-1.02 [facility] ([place]) Comment on above: Performed By: #### C BC, ADIFF, ANEU #### [address] [address] #### TROP, GFR, CMP #### [address] [address] Globulin (S) [Mass/Vol] 3.4 G/dL Normal [facility] ([place]) Comment on above: Performed By: #### C BC, ADIFF, ANEU #### [address] [address] #### TROP, GFR, CMP #### [address] [address] Protein [Mass/Vol] 6.7 G/dL Normal 6.4-8.2 [facility] ([place]) Comment on above: Performed By: #### C BC, ADIFF, ANEU #### [address] [address] #### TROP, GFR, CMP #### [address] [address] Urea nitrogen [Mass/Vol] 13 mg/dL Normal 7-18 [facility] ([place]) Comment on above: Performed By: #### C BC, ADIFF, ANEU #### [place] [address] #### TROP, GFR, CMP #### [address] [address] Urea nitrogen/Creatinin e [Mass ratio] 12 ratio Normal 7-27 [facility] ([place]) Comment on above: Performed By: #### C BC, ADIFF, ANEU #### [place] [address] #### TROP, GFR, CMP #### [address] [address] TROPon 08-04-2018 Troponin I.cardiac [Mass/Vol] ng/mL Normal 0.000-0.040 [facility] ([place]) Comment on above: Result Comment: Trop onin I reference range: 0.00-0.040 ng/mL Negative and non-diagnostic. >0.040 ng/mL Consistent with cardiac damage, increased clinical risk and possibility of myocardial infarction. Serial measurements, a rise & fall in test results, clinical history, appropriate symptoms and/or ECG changes may help assess possibility of HI. *Other non-acute coronary syndrome conditions such as CHF, myocarditis, pulmonary emboli, sepsis and cardiac surgery could result in myocardial damage and increased troponin levels. Performed By: #### C BC, ADIFF, ANEU #### [place] [address] #### TROP, GFR, CMP #### [facility] [address] [place], [place] [id number] XR CHEST 2 VIEWSon 8 XR CHEST 2 VIEWS ORIGINAL XR CHEST 2 VIEWS CLINICAL STATEMENT: Chest Pain. COMPARISON: None FINDINGS: The heart is not enlarged. The lungs appear clear. There is no vascular congestion or focal infiltrate. No pleural abnormality is seen. IMPRESSION: No acute process. Interpreted By: Shilpa Garza MD Preliminary Report By: Shilpa Garza MD Electronically Signed By: Shilpa Garza MD Dictated Date: 08/03/2018 11:47:23 PM Prelim Date: 08/03/2018 11:47:23 PM Sign Date: 08/03/2018 11:48:19 PM Normal [facility] ([place]) Vital Signs Date Time Vital Sign Value Performing Clinician Antoniai idalmis 08-15-2022 14:01-0500 Body temperature 98.6 [degF] Maya Abram PA-C Work Phone: [facility] 08-15-2022 14:01-0500 Body weight 114.76 kg Maya Abram PA-C Work Phone: [facility] 08-15-2022 14:01-0500 Diastolic blood pressure 95 mm[Hg] Maya Abram PA-C Work Phone: [facility] 08-15-2022 14:01-0500 Heart rate 72 /min Maya Abram PA-C Work Phone: [facility] 08-15-2022 14:01-0500 Respiratory rate 16 /min Maya Abram PA-C Work Phone: [facility] 08-15-2022 14:01-0500 SaO2% (BldA) [Mass fraction] 100 % Maya Abram PA-C Work Phone: [facility] 08-15-2022 14:01-0500 Systolic blood pressure 151 mm[Hg] Maya Abram PA-C Work Phone: [facility] 05-11-2022 13:04-0400 Body temperature 98.01 [degF] Seamus Torres MD Work Phone: [facility] 05-11-2022 13:04-0400 Body weight 116.39 kg Seamus Torres MD Work Phone: [facility] 05-11-2022 13:04-0400 Diastolic blood pressure 71 mm[Hg] Seamus Torres MD Work Phone: [facility] 05-11-2022 13:04-0400 Heart rate 70 /min Seamus Torres MD Work Phone: [facility] 05-11-2022 13:04-0400 Respiratory rate 18 /min Seamus Torres MD Work Phone: [facility] 05-11-2022 13:04-0400 SaO2% (BldA) [Mass fraction] 99 % Seamus Torres MD Work Phone: [facility] 05-11-2022 13:04-0400 Systolic blood pressure 128 mm[Hg] Seamus Torres MD Work Phone: [facility] Encounters Encounter Date Encounter Type Care Provider Facility Start: 08-15-2022 End: 08-15-2022 ambulatory [facility] Facility:[id number] Start: 08-15-2022 End: 08-15-2022 Patient encounter procedure Maya Jacobs PA-C Work Phone: [facility] Comment on above: Dermatitis (Primary Dx) Start: 05-11-2022 End: 05-11-2022 ambulatory [facility] Facility:[id number] Start: 05-11-2022 End: 05-11-2022 Office outpatient new 30 minutes Seamus Torres MD Work Phone: [facility] Comment on above: Partial thickness bu rn of left hand including fingers, initial encounter (Primary Dx) Start: 11-18-2018 End: 11-18-2018 Patient encounter procedure IMCA Facility:[facility] Start: 11-04-2018 End: 11-04-2018 Patient encounter procedure IMCA Facility:[facility] Start: 10-22-2018 End: 10-22-2018 Patient encounter procedure IMCA Facility:[facility] Start: 10-07-2018 End: 10-07-2018 Patient encounter procedure IMCA Facility:[facility] Start: 09-23-2018 End: 09-23-2018 Patient encounter procedure IMCA Facility:[facility] Start: 09-16-2018 Patient encounter procedure IMCA Facility:[facility] Start: 09-09-2018 Patient encounter procedure IMCA Facility:[facility] Start: 09-01-2018 End: 09-01-2018 Patient encounter procedure IMCA Facility:[facility] Start: 08-26-2018 End: 08-26-2018 Patient encounter procedure IMCA Facility:[facility] Procedures Date Procedure Procedure Detail Performing Clinician Start: 05-11-2022 Adult depression screening assessment Seamus Torres MD Work Phone: Plan of Treatment Date Care Activity Detail Author Start: 05-11-2023 [facility] SCREENING [facility] Start: 07-09-2022 COVID-19 VACCINE (3 - Booster for Pfizer series) COVID-19 VACCINE (3 - Booster for Pfizer series) [facility] Start: 05-29-2022 Influenza vaccination INFLUENZA (#1) [facility] Start: 04-03-2022 COVID-19 VACCINE (3 - Booster for Pfizer series) COVID-19 VACCINE (3 - Booster for Pfizer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
[2024-07-24 07:02] LABS: Absolute Lymphocyte Count 1.84 X10^3/uL (0.83-4.51); Absolute Neutrophil Count 3.4 X10^3/uL (2.0-7.7); Basophil# 0.03 X10^3/uL; Basophil% 0.5 % (0-1); Hematocrit 37.8 % (37-47); Hemoglobin 12.2 g/dL (12.0-15.0); Lymphocyte # 1.84 X10^3/ul (0.83-4.51); Lymphocyte % 29.6 % (19-41); Mean Corp Hgb Conc 32.3 g/dL (32-36); Mean Corpuscular Volume 92.9 fL (81-99); Mean Platelet Vol. 10.2 fl (6.2-12.0); Monocyte# 0.45 X10^3/uL; Monocyte% 7.2 % (0-10); NRBC Flagged by Analyzer 0 % (0-5); Neutrophil # 3.38 X10^3/uL (2.7-7.7); Neutrophil % 54.4 % (47-70); Platelet Count 261 K/mm3 (150-450); RBC Distribution Width CV 12.2 % (11.6-14.6); RBC Distribution Width SD 42.1 fl (35.1-43.9); Red Blood Count 4.07 M/mm3 (4.2-5.4); White Blood Count 6.2 K/mm3 (4.4-11.0)
[2024-07-24 09:50] LABS: AST(SGOT) 25 U/L (15-37); Alanine Aminotransfer ALT/SGPT 31 U/L (13-56); Albumin, Serum 3.2 g/dL (3.2-5.0); Alkaline Phosphatase 77 U/L (45-117); Anion Gap 2 (5-15); BUN 9 mg/dL (7-18); BUN/Creat Ratio 12.4 RATIO (10-20); Calcium,Total 8.4 mg/dL (8.5-10.1); Chloride 111 mmol/L (98-107); Cholesterol 177 mg/dL (200); Creatinine, Serum 0.72 mg/dL (0.55-1.02); EST Glomerular Filtration Rate 96 mL/min (>60); Est Glom Filt Rate - Afr Amer 116 mL/min (>60); Follicle Stimulating Hormone 7.3 mIU/mL; Globulin 3.3 g/dL (2.2-4.2); Glucose 99 mg/dL (74-106); High Density Lipoprotein 47 mg/dL; Luteinizing Hormone 5.5 mIU/mL; Potassium 3.7 mmol/L (3.5-5.1); Protein, Total 6.5 g/dL (6.4-8.2); Sodium Level 139 mmol/L (136-145); Triglycerides 94 mg/dL; Very Low Density Lipoprotein 19 mg/dL (5-40)
[2024-07-30 00:07] LABS: Estrogen, Total, Serum 201 pg/mL (.)
== END | disposition home or self-care (01) ==
PROVIDERS: PCP Family Medicine; Referring Provider Family Medicine; Visit Provider Family Medicine
DX: F32.1 Major depressive disorder, single episode, moderate (principal); E66.01 Morbid (severe) obesity due to excess calories
CPT/HCPCS: 36415; 80053; 80061; 82672; 83001; 83002; 84443; 85025

== ENCOUNTER → 2024-08-01 | Outpatient (CLI) | payer OTHER, SELFPAY ==
--- NOTE | 2024-08-01 15:25 | BI_ITS ---
MAMMOGRAPHY - BILATERAL SCREENING REASON FOR EXAM: Female, 39 years old. Routine annual screening examination. PERTINENT HISTORY: Non-contributory. TECHNIQUE: Digital bilateral breast codey (3D mammographic acquisition) in the CC and MLO projections. 2-D mediolateral oblique (MLO) and craniocaudad (CC) views of both breasts were obtained. CAD: Full Field Digital Mammography with Computer Added Detection was performed. COMPARISON: Comparison is made with prior study July 31, 2023. FINDINGS: Breast Composition: The breasts are heterogeneously dense, which may obscure small masses. There are no dominant masses or suspicious calcifications. Stable small benign-appearing bilateral axillary lymph nodes. No other significant abnormalities are identified. There has been no significant change since the prior study. BI/SCRN MAMM (CAD)W/CODEY BILAT IMPRESSION: Stable bilateral screening mammogram. Yearly follow-up mammogram recommended. (A) ASSESSMENT CATEGORY: BIRADS Category 2: Benign. A letter regarding these results will be sent to the patient by the facility within 30 days. Approximately 10% of breast cancers are not detected by mammography. A normal mammogram should not delay biopsy of a clinically suspicious abnormality. [id number] Electronically Signed: Tawanda Sutherland MD at 8:31 EST ,
== END | disposition home or self-care (01) ==
LOC: OPBI 15:24
PROVIDERS: PCP Family Medicine; Referring Provider Family Medicine; Visit Provider Family Medicine
DX: Z12.31 Encounter for screening mammogram for malignant neoplasm of breast (principal)
CPT/HCPCS: 77063; 77067

== ENCOUNTER 2024-08-06 21:35 | Emergency (ER) | payer OTHER, SELFPAY ==
[2024-08-06 21:36] VITALS: BP 139/86; PULSE 85; RESP 18; TEMP 36.6; O2SAT 96; BMI 41.9
[2024-08-06 21:42] VITALS: O2SAT 98
== END 2024-08-07 00:42 | disposition home or self-care (01) ==
PROVIDERS: Emergency Provider Emergency Medicine; PCP Family Medicine; Referring Provider Emergency Medicine; Visit Provider Emergency Medicine
DX: J06.9 Acute upper respiratory infection, unspecified (principal); Z11.52 Encounter for screening for COVID-19; Z79.899 Other long term (current) drug therapy
CPT/HCPCS: 71046; 87631; 87651; 99282

== ENCOUNTER → 2024-11-02 | Outpatient (CLI) | payer OTHER, SELFPAY ==
--- NOTE | 2024-11-02 14:18 | NEURO ---
NCS and/or EMG Patient Report Ordering Doctor: Gamaliel Franco DATE OF SERVICE: 11/02/24 Suha presents with numbness and tingling in both hands, worse on the left side. Electrodiagnostic findings: Left median motor nerve demonstrates borderline prolonged distal latency with normal amplitude and reduced conduction velocity. Right median motor nerve demonstrates normal distal latency and amplitude with reduced conduction velocity. Ulnar motor response is within normal limits bilaterally. Prolonged median sensory latency at the wrist bilaterally. Needle EMG testing was performed of the upper limbs. All muscles tested showed no evidence of denervation with normal motor unit action potentials. Electrodiagnostic impression: This is an abnormal study in the upper limbs. 1. Electrodiagnostic findings suggestive of bilateral median mononeuropathy. This consistent with a mild bilateral carpal tunnel syndrome. Multi Select Codes Neurology Neurology Interp Codes: 99184-90 Musc test done w/n test comp (interp) and 27131-71 Nrv cndj test 11-12 studies (interp)
== END | disposition home or self-care (01) ==
LOC: PSN 09:43
PROVIDERS: PCP Family Medicine; Referring Provider Family Medicine; Visit Provider Family Medicine
DX: R20.0 Anesthesia of skin (principal)
CPT/HCPCS: 95886; 95912

== ENCOUNTER 2024-11-17 08:35 | Day surgery (SDC) | payer OTHER, SELFPAY ==
[2024-11-17] VITALS (10 sets, daily range): BP systolic 120–132; BP diastolic 68–96; PULSE 67–84; RESP 16–18; TEMP 36.4–36.8; O2SAT 97–100; BMI 41.5
--- NOTE | 2024-11-17 09:07 | PCM.PRE.AN2 ---
ASA Classification* ASA Classification ASA Classification: 3 Assessment & Plan Anesthesia* Anesthesia Assessment Anesthesia Assessment: Discussed sedation and/or anesthesia options, risks, benefits, and alternatives with patient/parents/legal guardian/POA. Questions invited. The patient/parents/legal guardian/POA seems to understand and agrees to proceed with anesthesia plan. Reviewed the physical assessment, medical history, allergy history and patient home medications list prior to surgery/procedure/anesthetic and documented any changes. Performed airway and anesthesia risk assessments. Anesthesia Type Anesthesia Type: MAC History Source History Obtained from:: Patient Anesthesia Focused Assessment* Temperature: 97.8 F Pulse Rate: 79 Blood Pressure: 125/76 Respiratory Rate: 17 Pulse Ox: 100 Oxygen Delivery Method: Room Air Airway Assessment Mouth opens: >3 cm Mallampati Score: I Teeth Condition: Intact Neck Range of motion (ROM): Full ROM Focused Labs Anesthesia Preop lab: CBC WBC 6.2 K/mm3 (4.4-11.0) 07/24/24 06:30 07/24/24 RBC 4.07 M/mm3 (4.2-5.4) L 07/24/24 06:30 07/24/24 Hgb 12.2 g/dL (12.0-15.0) 07/24/24 06:30 07/24/24 Hct 37.8 % (37-47) 07/24/24 06:30 07/24/24 Plt Count 261 K/mm3 (150-450) 07/24/24 06:30 07/24/24 CHEMISTRY Potassium 3.7 mmol/L (3.5-5.1) 07/24/24 06:30 07/24/24 Sodium 139 mmol/L (136-145) 07/24/24 06:30 07/24/24 Magnesium 2.2 mg/dL (1.6-2.6) 08/01/22 09:25 08/01/22 Phosphorus 3.2 mg/dL (2.5-4.9) 03/09/14 07:48 03/09/14 BUN 9 mg/dL (7-18) 07/24/24 06:30 07/24/24 Creatinine 0.72 mg/dL (0.55-1.02) 07/24/24 06:30 07/24/24 Glucose 99 mg/dL (74-106) 07/24/24 06:30 07/24/24 POC Glucose 111 mg/dL (74-106) H 08/07/22 06:13 08/07/22 TSH 2.890 uIU/mL (0.358-3.740) 07/24/24 06:30 07/24/24 COAG PT 12.0 SECONDS (11.7-14.9) 08/01/22 09:25 08/01/22 HCG, Quant 1 mIU/mL (1-3) 02/27/20 16:40 02/27/20 Urine Test Negative Negative 09/30/21 10:06 09/30/21 Pre-Assessment Diagnosis/Proposed Procedure Planned Operative Procedure(s): EGD Anesthesia History Anesthesia History - clearance cutter: Anesthesia History - clearance cutter Hx Hospitalization No 11/15/24 11:46 Any Problems With Anesthesia 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 Wakes up slowly. PONV Cholinesterase deficiency No 11/15/24 11:46 You/Your Family Experience No 11/15/24 11:46 fever (hyperthermia) with Relationship Recent Exposure to Contagious No 11/17/24 08:55 Disease Does patient have nerve No 11/15/24 11:46 stimulator Patient instructed to have device shut off --Does patient have Pacemaker No 11/17/24 08:55 or ICD? When Was Last Pacemaker Check QUESTION #4 FULL TEXT: You/Your Family Experience fever (hyperthermia) with Anesthesia Any additional information?: No Last Oral Intake Last Oral intake: Last Oral Intake NPO since 00:00 11/17/24 08:55 Meds taken in AM with sips of No 11/17/24 08:55 water? Meds patient instructed to take am of surgery Any additional information?: No PONV PONV - clearance cutter: PONV - clearance cutter Female Yes 11/15/24 11:46 HX of Motion Sickness Yes 11/15/24 11:46 HX of N/V After Surgery No 11/15/24 11:46 Non-Smoker Yes 11/15/24 11:46 Duration of Surgery greater No 11/15/24 11:46 than 60 minutes Number of Risk Factors 3 11/15/24 11:46 PONV Score Moderate Risk 11/15/24 11:46 Any additional information?: No Height & Weight Height & Weight: Anesthesia: Height & Weight Height 5 ft 8 in 11/17/24 08:55 Weight: 124 kg 11/17/24 08:55 Body Mass Index (BMI) 41.5 11/17/24 08:55 Respiratory Assessment Respiratory Assessment - clearance cutter: Respiratory Tract Infection Hx - clearance cutter Hx Respiratory Tract Infection No 11/15/24 11:46 Any additional information?: No STOP Sleep Apnea STOP Sleep Apnea - clearance cutter: STOP Sleep Apnea - clearance cutter Hx Hypertension No 11/15/24 11:46 Hx Sleep Apnea No 11/15/24 11:46 CPAP BIPAP Do you snore loudly (louder Yes 11/15/24 11:46 than talking or can be heard Do you often feel tired/ Yes 11/15/24 11:46 fatigued/ sleepy during daytime? Has anyone observed you stop No 11/15/24 11:46 breathing during sleep? STOP Results Positive 11/15/24 11:46 QUESTION #5 FULL TEXT : Do you snore loudly (louder than talking or can be heard through closed doors)? 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 Specify any problems Hx of Preganancy in last 3 No 11/15/24 11:46 Months Nurse Filling Out Transfusion DSCHRIBER 11/15/24 11:46 & Questions: Date: 11/15/24 11/15/24 11:46 Time: 11:47 11/15/24 11:46 Patient unable to answer at this time (ie. confused, unrespo Any additional information?: No /Reproduction History /Reproductive History - clearance cutter: /Reproductive Hx- clearance cutter Hx Now No 11/15/24 11:46 Gestational Age (in weeks): EDC: Hx Hx Para Hx Section SAB No 11/15/24 11:46 Any additional information?: No PFSH Medical History (Updated 11/15/24 @ 11:51 by Tonia Mccarthy) Wears glasses Anxiety Difficulty swallowing History of IBS Low iron PONV (postoperative nausea and vomiting) Non-smoker Diarrhea Abdominal pain Depression Alcohol use Back pain History of hiatal hernia Gastric reflux Home Medications ?Medication ?Instructions ?Recorded ?Last Taken ?Type Tylenol 500 mg PO/SL PRN PRN Pain 12/11/20 11/30/22 History epinephrine 0.3 mg/0.3 mL 0.3 mg IM Q4H PRN allergies 11/26/22 11/30/22 History injection, auto-injector (EpiPen) ondansetron HCl 4 mg tablet 4 mg PO Q8H PRN nausea and 06/16/23 Unknown Rx vomiting #45 tabs vancomycin 125 mg capsule 125 mg PO Q6H PRN CDIFF 10/23/23 Unknown History esomeprazole magnesium 40 mg 40 mg PO QAM #90 caps 02/09/24 11/16/24 Rx capsule,delayed release colestipol 1 gram tablet 1 g PO HS #90 tabs 05/18/24 11/16/24 Rx bupropion HCl 300 mg 24 hr tablet, 300 mg PO QAM 09/06/24 11/16/24 History extended release (Wellbutrin XL) buspirone 10 mg tablet 10 mg PO BID 11/15/24 11/16/24 History cetirizine 10 mg tablet (Zyrtec) 10 mg PO DAILY Allergies 11/15/24 11/16/24 History dicyclomine 20 mg tablet 20 mg PO DAILY PRN PRN abdominal 11/15/24 Unknown History pain Allergy/AdvReac Type Severity Reaction Status Date / Time bee pollen (Bee Pollen) Allergy Severe Anaphylaxis Verified 11/17/24 08:54 peanut Allergy Severe Anaphylaxis Verified 11/17/24 08:54 Family History Other Breast cancer Diabetes High cholesterol Hypertension Thyroid disorder Surgical History (Updated 11/15/24 @ 11:51 by Tonia Mccarthy) History of hysterectomy History of tubal ligation H/O dilation and curettage History of esophagogastroduodenoscopy (EGD) Hx of colonoscopy Hx of surgical procedure Hx laparoscopic cholecystectomy Hx of wisdom tooth extraction Hx of tonsillectomy Social History Smoking Status: Never smoker alcohol intake: current alcohol intake frequency: a few times a month Alcohol type: beer and wine substance use type: does not use Review of Systems (Anesthesia) ROS Narrative System reviewed and no additional complaints, except as documented. Physical Exam Const alert and oriented x3 HEENT dentition normal Neck full ROM General: normal visual inspection Resp normal respiratory effort and normal air movement Auscultation: clear to auscultation bilaterally Cardio regular rate and regular rhythm Neuro oriented x3
--- NOTE | 2024-11-17 09:30 | IMM_PTH ---
PATIENT: MELLISA RIVAS LOC: EN U#:[id number] AGE/SX: 39/F ROOM: RE11/17/[address]: Dr. Jamshid Escobedo DO : 1985 BED: DIS: 11/17/2024 SPEC #: [id number] RECD: 11/17/24 13:16 STATUS: YAHIR JENNIFER #: [id number] NIKITA: 11/17/24 09:[address]: Jamshid Escobedo DEPT: IMMUNOHISTOCHEMISTRY RECD BY: Paulino Lopez ENTERED: 11/17/24 13:17 SP TYPE: IMMUNO OTHR DR: Dr. Nereyda Franco MD Tissues: A - Gastric mucous membrane Procedures: H Pylori (initial) PHYSICIAN & INSTITUTION [place] [address] SPECIMEN INFORMATION: Tissue Source: A- Gastric body biopsy Clinical Info: Irritable bowel syndrome, bile reflux disease, anxiety, bile salt-inducted diarrhea, gastroparesis, dysphagia Specimen Number: [id number] CPT code: 03566 METHODOLOGY: Deparaffinized sections of prefer/formalin-fixed tissue or PAP/DQ stained slides are incubated with monoclonal/polyclonal antibodies/oligonucleotide probes. Localization is made via biotin free immunoperoxidase method. Appropriate controls are performed and reacted as expected. Results on target cell population are indicated in the following table: RESULTS: ANTIBODY / CLONE RESULT Block AH Pylori (polyclonal) negative These tests were developed and their performance characteristics determined by [facility]. They may not have been cleared or approved by the U.S. Food and Drug Administration. The FDA has determined that such clearance or approval is not necessary. The above immunohistochemical/dualISH markers are ordered and reviewed by the Pathologist. INTERPRETATION: A. Gastric body, biopsy: Negative for Helicobacter pylori organisms. 11/18/2024
--- NOTE | 2024-11-17 09:30 | EGD_PTH ---
PATIENT: MELLISA RIVAS LOC: EN U#:[id number] AGE/SX: 39/F ROOM: RE11/17/[address]: Dr. Jamshid Escobedo DO : 1985 BED: DIS: 11/17/2024 SPEC #: [id number] RECD: 11/17/24 11:58 STATUS: YAHIR JENNIFER #: [id number] NIKITA: 11/17/24 09:[address]: Jamshid Escobedo DEPT: SURGICAL PATHOLOGY RECD BY: Royer Cruz ENTERED: 11/17/24 11:58 SP TYPE: EGD BIOPSY DAVID DR: Dr. Nereyda Franco MD Tissues: A - Gastric mucous membrane B - Esophagus, NOS Procedures: Surgery Specimen Level IV Alcian Blue/PAS (control) HEADER OPERATION: EGD, biopsy, dilation PRE-OP DIAGNOSIS: Irritable bowel syndrome, bile reflux gastritis, anxiety, bile salt-indicated diarrhea, dysphagia TISSUE SUBMITTED: A- Gastric body biopsy, B- Distal esophagus biopsy MICROSCOPIC DIAGNOSIS A. Gastric body, biopsy: Mild gastritis. See microscopic description and comment. B. Distal esophagus, biopsy: Fragments of gastroesophageal mucosa with chronic inflammation. Intestinal metaplasia (goblet cell metaplasia) not identified. See comment. 11/18/2024 COMMENT A. The results of immunohistochemistry for Helicobacter pylori will be reported separately ([id number]). B. Alcian blue/PAS stain with matched control is used in the evaluation of the specimen. The specimen predominantly consists of gastric mucosa. MICROSCOPIC DESCRIPTION Slides are reviewed. A. The specimen shows fragments of gastric mucosa with chronic inflammatory cell infiltrates in the lamina propria consisting of lymphocytes and plasma cells, consistent with mild chronic gastritis. GROSS DESCRIPTION A. Received in fixative is one container labeled with the patient's name and designated Gastric body biopsy. The specimen consists of two irregular fragments of light [place] soft tissue that in aggregate measure 0.6 x 0.5 x 0.1 cm. The specimen is totally submitted in one cassette. B. Received in fixative is one container labeled with the patient's name and designated Distal esophagus biopsy. The specimen consists of two irregular fragments of light [place] soft tissue that in aggregate measure 0.8 x 0.6 x 0.2 cm. The specimen is totally submitted in one cassette. 11/17/2024 TC:3 CPT:91296d8,34150
--- NOTE | 2024-11-17 09:38 | PCM.HP.STD ---
HPI - General General Date of Admission: 11/17/24 Date of Service: 11/17/24 Chief Complaint: dysphagia HPI Narrative MELLISA RIVAS, is a 39 F who presents to the office today for follow up. PCP OV 06.12.22 with abd pain and loose stools noting some food triggers. *BGI established 09.19.22 with abdominal pain and loose stools that have been getting worse for the last 6-12 months; notes stress as a trigger. Heartburn has been a daily problem; esomeprazole somewhat helpful, stress is a trigger. Intermittent epigastric pain following cholecystectomy 2012. ? EGD and colonoscopy 12.01.22 EGD gastritis; duodenitis. No additional path changes. ? Colonoscopy congested colon; TI normal. No path changes. ? Stool calprotectin, EP, lactoferrin. ? PCR+ C.difficile without toxin/antigens OV 12.16.22 Start colestipol 1-2 gram QD; continue dicyclomine PRN. Seeing PCP soon for discussion of anxiety treatment. OV 05.04.23 She did start Lexapro 20mg QD through PCP. She has noted some increased anxiety recently (has a trip coming up) and has caused increased upset stomach, cramping, alternating BM. Colestipol increased to 2gram QD and dicyclomine BID and Nexium 40mg QD (has attempted to stop Nexium but had increased stomach discomfort). Prior to increased anxiety she was feeling much better. BM occur daily but with incomplete evacuation and need to repeat BM approximately 15 minutes later, this was present prior to colestipol increase. Prior to starting colestipol she was having a lot of loose stools alternating with constipation. With colestipol she is no longer having foamy/bile diarrhea. Contact 06.16.23 with mild nausea with start of Semaglutide, reassured this is normal. Recently started on ATB therapy for sinuses and has had abnormal stools since the start of this. Start vancomycin. Contact, 08.26.23, portal with recent ATB use without preventative vancomycin; she has been having urgent loose stools. ? Stool lactoferrin, EP WNL C.Difficile PCR +, antigen/toxin negative OV 10.23.23 Nausea, bloating, heartburn after eating certain. During bowel movements will occasional experience sharp lower abdomen pain, sometimes worse on right side. Constipation and diarrhea. GES 71.13 minutes - moderate gastroparesis Start Metoclopramide Contact 6.01.19 pt is currently taking Abilify and pharmacy called with concerns with pt taking Metoclopramide with Abilify, start Prucalopride OV 03.11.24 pt reports continued symptoms from previous visit. States she will have one or two solid bm, followed by diarrhea and then will not have a bm for 3-4 days. OV 09.06.24 [facility] Medical History Wears glasses Anxiety Difficulty swallowing History of IBS Low iron PONV (postoperative nausea and vomiting) Non-smoker Diarrhea Abdominal pain Depression Alcohol use Back pain History of hiatal hernia Gastric reflux Home Medications ?Medication ?Instructions ?Recorded ?Last Taken ?Type Tylenol 500 mg PO/SL PRN PRN Pain 12/11/20 11/30/22 History epinephrine 0.3 mg/0.3 mL 0.3 mg IM Q4H PRN allergies 11/26/22 11/30/22 History injection, auto-injector (EpiPen) ondansetron HCl 4 mg tablet 4 mg PO Q8H PRN nausea and 06/16/23 Unknown Rx vomiting #45 tabs vancomycin 125 mg capsule 125 mg PO Q6H PRN CDIFF 10/23/23 Unknown History esomeprazole magnesium 40 mg 40 mg PO QAM #90 caps 02/09/24 11/16/24 Rx capsule,delayed release colestipol 1 gram tablet 1 g PO HS #90 tabs 05/18/24 11/16/24 Rx bupropion HCl 300 mg 24 hr tablet, 300 mg PO QAM 09/06/24 11/16/24 History extended release (Wellbutrin XL) buspirone 10 mg tablet 10 mg PO BID 11/15/24 11/16/24 History cetirizine 10 mg tablet (Zyrtec) 10 mg PO DAILY Allergies 11/15/24 11/16/24 History dicyclomine 20 mg tablet 20 mg PO DAILY PRN PRN abdominal 11/15/24 Unknown History pain Allergy/AdvReac Type Severity Reaction Status Date / Time bee pollen (Bee Pollen) Allergy Severe Anaphylaxis Verified 11/17/24 08:54 peanut Allergy Severe Anaphylaxis Verified 11/17/24 08:54 Family History Other Breast cancer Diabetes High cholesterol Hypertension Thyroid disorder Surgical History History of hysterectomy History of tubal ligation H/O dilation and curettage History of esophagogastroduodenoscopy (EGD) Hx of colonoscopy Hx of surgical procedure Hx laparoscopic cholecystectomy Hx of wisdom tooth extraction Hx of tonsillectomy Social History Smoking Status: Never smoker alcohol intake: current alcohol intake frequency: a few times a month Alcohol type: beer and wine substance use type: does not use ROS Constitutional Constitutional: Denies fatigue, fever(s), poor appetite, weight gain or weight loss Gastrointestinal Gastrointestinal: Denies belching, bloating, change in bowel habits, change in stool character, chewing difficulty, coffee ground emesis, constipation, cramping, diarrhea, dyspepsia, dysphagia, early satiety, excessive flatus, fecal incontinence, heartburn, hematemesis, hematochezia, hemorrhoids, loose stools, melena, nausea, odynophagia, rectal bleeding, tenesmus, vomiting or weight changes Vital Signs Vital Signs Vital Signs: 11/17/24 08:55 11/17/24 08:55 11/17/24 09:12 Temperature 97.8 F 97.8 F Temperature Source Temporal Pulse Rate 79 79 Respiratory Rate 17 17 Respiratory Pattern Normal Blood Pressure 125/76 H 125/76 H Blood Pressure Mean 92 Blood Pressure Source Monitor Blood Pressure Position Semi-Fowlers Blood Pressure Location Left Forearm Pulse Ox 100 100 Oxygen Delivery Method Room Air Room Air Weight Weight: 273 lb 5.971 oz Body Mass Index (BMI) 41.5 Assessment & Plan Assessment/Plan (1) Gastroparesis: (2) IBS (irritable bowel syndrome): (3) Bile salt-induced diarrhea: (4) Dysphagia: PLAN: Affect: normal affect Assessment and Plan Assessment and Plan (1) IBS (irritable bowel syndrome): Status: Chronic Plan: I believe that she is experiencing Abdominal migraines. Abdominal migraines (AM) are unprovoked episodes of central abdominal pain associated with migraine symptoms such as sensory hypersensitivities to light and sound, vomiting, nausea, acute headaches, and general pallor. (2) Bile reflux gastritis: Status: Chronic Plan: We reviewed her EGD and colonoscopy findings. Will treat with bile acid sequestrant. Rx colestipol 1 gram take 1-2 per day, avoid with other meds. . f/u 6 months. Can continue dicyclomine if needed. Has upcoming appt with PCP to discuss treatment of anxiety. 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 Currently she weaning off of Lexapro and Abilify which is really helping her anxiety and depression. I wanted to start her on low-dose metoclopramide once a day due to her moderate gastroparesis that is likely medication induced. However I do not want it to interact with her current psychiatric drug regimen. . (3) Anxiety: Status: Chronic (4) Bile salt-induced diarrhea: Status: Chronic Plan: Secondary to a poor diet that does not have much soluble and insoluble fiber and she takes a mostly carbohydrates without supplementing with insoluble fiber. Recommended for her to take 1 scoop of Metamucil at night (5) Gastroparesis: Status: Acute (6) Dysphagia: Status: Acute Plan: Will perform an upper endoscopy to evaluate upper GI tract to see why she has esophageal dysphagia. Differential diagnosis does include esophageal dysmotility disorder, eosinophilic esophagitis, Schatzki's ring, erosive esophagitis in the setting of gastroparesis.
--- NOTE | 2024-11-17 10:14 | OP.EGD_ITS ---
Patient Name: Suha Bell Procedure Date: 11/17/2024 9:47 AM Date of : 1985 Age: 39 Procedure: Upper GI endoscopy Indications: Epigastric abdominal pain, Dysphagia Providers: Jamshid Escobedo DO Referring MD: Nereyda Franco Md Medicines: Monitored Anesthesia Care Patient Profile: This is a 39 year old female. Refer to note in patient chart for documentation of history and physical. Patient has symptoms of chronic epigastric abdominal pain, dysphagia with both liquids and solids and chronic dyspepsia. Complications: No immediate complications. Procedure: Pre-Anesthesia Assessment: - Prior to the procedure, a History and Physical was performed, and patient medications and allergies were reviewed. The patient is competent. The risks and benefits of the procedure and the sedation options and risks were discussed with the patient. All questions were answered and informed consent was obtained. Patient identification and proposed procedure were verified by the physician in the pre-procedure area. Mental Status Examination: alert and oriented. Airway Examination: normal oropharyngeal airway and neck mobility. Respiratory Examination: clear to auscultation. CV Examination: normal. Prophylactic Antibiotics: The patient does not require prophylactic antibiotics. Prior Anticoagulants: The patient has taken no anticoagulant or antiplatelet agents except for NSAID medication. ASA Grade Assessment: II - A patient with mild systemic disease. After reviewing the risks and benefits, the patient was deemed in satisfactory condition to undergo the procedure. The anesthesia plan was to use monitored anesthesia care (MAC). Immediately prior to administration of medications, the patient was re-assessed for adequacy to receive sedatives. The heart rate, respiratory rate, oxygen saturations, blood pressure, adequacy of pulmonary ventilation, and response to care were monitored throughout the procedure. The physical status of the patient was re-assessed after the procedure. After obtaining informed consent, the endoscope was passed under direct vision. Throughout the procedure, the patient's blood pressure, pulse, and oxygen saturations were monitored continuously. The Endoscope was introduced through the mouth, and advanced to the second part of duodenum. The upper GI endoscopy was accomplished without difficulty. The patient tolerated the procedure well. Scope In: Scope Out: 10:02:39 AM Findings: Abnormal motility was noted in the esophagus. The cricopharyngeus was abnormal. There are extra peristaltic waves in the esophageal body. The distal esophagus/lower esophageal sphincter is spastic, but gives up passage to the endoscope. Secondary peristaltic waves are noted. A guidewire was placed and the scope was withdrawn. Dilation was performed with a Savary dilator with no resistance at 60 Fr. A hiatal hernia was present. Patchy moderately erythematous mucosa without bleeding was found in the gastric body. Biopsies were taken with a cold forceps for histology. Verification of patient identification for the specimen was done. Estimated blood loss was minimal. No gross lesions were noted in the first portion of the duodenum. Biopsies were taken with a cold forceps for histology. Verification of patient identification for the specimen was done. Estimated blood loss was minimal. Impression: - Abnormal esophageal motility, suspicious for aperistalsis. Dilated. - Hiatal hernia. - Erythematous mucosa in the gastric body. Biopsied. - No gross lesions in the first portion of the duodenum. Biopsied. Recommendation: - Discharge patient to home. - Resume previous diet. - Continue present medications. - Await pathology results. - Repeat upper endoscopy in 1 year. Procedure Code(s): --- Professional --- 15627, Esophagogastroduodenoscopy, flexible, transoral; with insertion of guide wire followed by passage of dilator(s) through esophagus over guide wire 22439, 59,51, Esophagogastroduodenoscopy, flexible, transoral; with biopsy, single or multiple CPT copyright 2021 [employer]. All rights reserved. The codes documented in this report are preliminary and upon operations chief review may be revised to meet current compliance requirements. Jamshid Escobedo DO 11/17/2024 10:13:44 AM This report has been signed electronically. Number of Addenda: 0 Note Initiated On: 11/17/2024 9:47 AM
--- NOTE | 2024-11-17 10:14 | OP.CCLET_ITS ---
11/17/2024 Nereyda Franco Md Re : Upper GI endoscopy procedure for Suha Bell Dear Dr. Gamaliel Franco This procedure was performed on October. My impressions and recommendations are as follows: Impressions : - Abnormal esophageal motility, suspicious for aperistalsis. Dilated. - Hiatal hernia. - Erythematous mucosa in the gastric body. Biopsied. - No gross lesions in the first portion of the duodenum. Biopsied. Recommendations : - Discharge patient to home. - Resume previous diet. - Continue present medications. - Await pathology results. - Repeat upper endoscopy in 1 year. My findings are described in the full procedure note, which is enclosed. If I can be of further assistance, please feel free to contact me at . Sincerely, Jamshid Escobedo, 11/17/2024 10:13:44 AM This report has been signed electronically.
--- NOTE | 2024-11-17 10:32 | PCM.POST.ANE ---
Anesthesia: Postop Eval I Current Vital Signs Temperature: 97.5 F Pulse Rate: 84 Blood Pressure: 128/68 Respiratory Rate: 18 Pulse Ox: 97 Oxygen Delivery Method: Room Air Assessment Airway patent: Yes Spontaneous unlabored respirations: Yes Mental status: Asleep nausea: No Vomiting: No Anesthesia Complication: No Fluid Hydration Crystalloid volume administer (ml): 30 Total IV fluid infused: 30 Progress Note Anesthesia document: Postop Eval 1 completed: Yes
--- NOTE | 2024-11-17 17:37 | PCM.POSTANE2 ---
Anesthesia Postop Eval I Sum Postop Eval Completion status Anesthesia document: Postop Eval 1 completed: Yes Anesthesia Postop Eval I Summary Anesthesia Postop Eval I Summary: Anesthesia Postop Eval I: Assessment Summary Airway patent Yes 11/17/24 10:33 [email or web address] Spontaneous unlabored Yes 11/17/24 10:33 [email or web address] respirations Mental status Asleep 11/17/24 10:33 [email or web address] nausea No 11/17/24 10:33 [email or web address] Vomiting No 11/17/24 10:33 [email or web address] Anesthesia Postop Eval I: Fluid Summary Crystalloid volume administer 30 11/17/24 10:33 [email or web address] (ml) Colloids volume administered ( ml) Blood Product volume administered (ml) Total IV fluid infused 30 11/17/24 10:33 [email or web address] Anesthesia Postop Eval I: Summary Notes Anesthesia Complication No 11/17/24 10:33 [email or web address] Anesthesia Complication Comment: Post-operative progress note Anesthesia: Postop Eval II Evaluation Mental status: Awake and Calm Pain Level: 0 nausea: No Vomiting: No Complications Anesthesia Complication: No
== END 2024-11-17 11:01 | disposition home or self-care (01) ==
LOC: EN 08:35 → AC 08:36
PROVIDERS: PCP Family Medicine; Referring Provider Family Medicine; Visit Provider Internal Medicine Gastroenterology
PROC: 0DJ08ZZ Inspection of Upper Intestinal Tract, Via Natural or Artificial Opening Endoscopic (ICD-10-PCS; CPT 43235; principal; 2024-11-17 09:25)
DX: K22.4 Dyskinesia of esophagus (principal); R13.10 Dysphagia, unspecified; K29.70 Gastritis, unspecified, without bleeding; K44.9 Diaphragmatic hernia without obstruction or gangrene; K58.0 Irritable bowel syndrome with diarrhea; K31.84 Gastroparesis; R12 Heartburn; Z79.899 Other long term (current) drug therapy; Z90.49 Acquired absence of other specified parts of digestive tract
CPT/HCPCS: 43248; 43239; 88305; 88342; A4216; C1769; J2405

== ENCOUNTER → 2025-08-02 | Outpatient (CLI) | payer OTHER, SELFPAY ==
--- NOTE | 2025-08-02 10:03 | BI_ITS ---
EXAM: BI/SCRN MAMM (CAD)W/CODEY BILAT
== END | disposition home or self-care (01) ==
PROVIDERS: PCP Family Medicine; Referring Provider Nurse Practitioner Gerontology; Visit Provider Nurse Practitioner Gerontology
DX: Z12.31 Encounter for screening mammogram for malignant neoplasm of breast (principal)
CPT/HCPCS: 77063; 77067

== ENCOUNTER 2025-08-05 18:32 | Emergency (ER) | payer OTHER, SELFPAY ==
[2025-08-05 18:33] VITALS: BP 160/92; PULSE 97; RESP 18; TEMP 36; O2SAT 100; BMI 38.0
--- OUTSIDE RECORDS SUMMARY | 2025-08-05 20:04 | XMS RPT_ITS | CCD ---
Author Organization [facility] Care Team Providers [facility] Flatbed Truck Driver Name Role Phone IMCA Referring Unavailable [facility], [facility] Primary Care Unavailable [facility]CA Referring Unavailable [facility] [place] Primary Care Unavailable IMCA Referring Unavailable [facility], [facility] Primary Care Unavailable IMCA Referring Unavailable [facility], [facility] Primary Care Unavailable IMCA Referring Unavailable [facility], [facility] Primary Care Unavailable IMCA Referring Unavailable [facility], [facility] Primary Care Unavailable IMCA Referring Unavailable [facility], [facility] Primary Care Unavailable IMCA Referring Unavailable [facility], [facility] Primary Care Unavailable [facility] Referring Unavailable [facility], [facility] Primary Care Unavailable PULLIAM JR, GISELE W Referring Unavailable PULLIAM JR, GISELE W Referring Unavailable PULLIAM JR, GISELE W Referring Unavailable PULLIAM JR, GISELE W Referring Unavailable PULLIAM JR, GISELE W Referring Unavailable PULLIAM JR, GISELE W Referring Unavailable PULLIAM JR, GISELE W Referring Unavailable P[facility] MD [facility] [facility] Primary Care Provider [phone] P[facility] MD [employer] [facility] Primary Care Provider [phone] [facility], [facility] [place] Primary Care Unavailable MELISSA PRATHEEP Attending Unavailable [facility] [place] Primary Care Unavailable MARY ELLEN JACOBS Attending Unavailable Otilia SENIOR WIND ENERGY CONSULTANT, SENIOR WIND ENERGY CONSULTANT-C Guera Landrum Attending Provider [phone] NEREYDA LANDRY Primary Care Provider NEREYDA Vasques Primary Care Provider NEREYDA ALEXANDRA Referring Provider Friend, Dr. Breen Attending Provider [phone] Friend, Dr. Breen Other Provider Friend, Dr. Breen Attending Provider [phone] Friend, Dr. Breen Attending Provider [phone] FALVO LANG, NEREYDA Primary Care Provider Unavai lable FALVO IBRAHIMA, NEREYDA Referring Provider Unavailab le Friend, Dr. Breen Attending Provider FALVO LANG, NEREYDA Primary Care Provider Unavai lable FALVO LANG, NEREYDA Referring Provider Unavailab le Unavailable Primary Care Provider Unavailabl e KHANG, SCOTT Attending Unavailable FALVO LANG, NEREYDA Referring Unavailable Mayela Alexandra MD, Dr. Dawn Primary Care Provider Mayela Alexandra MD, Dr. Dawn Referring Provider Friend DO, Dr. Breen Attending Provider Vero PONCE, Che Del Castillo Unavailable [phone] Mayela Alexandra MD, Nereyda L Unavailable Medhat Priest Attending Unavailable Grass, Medhat Referring Unavailable Falvo Lang, Nereyda Primary Care Unavailable Falvo Lang, Nereyda Primary Care Unavailable Friend, Jamshid Attending Unavailable Falvo Lang, Nereyda Referring Unavailable Gisela Wyatt Attending Unavailable Falvo Lang, Nereyda Primary Care Unavailable Falvo Lang, Nereyda Consulting Unavailable Falvo Lang, Nereyda Referring Unavailable Falvo Lang, Nereyda Primary Care Unavailable Friend, Jamshid Consulting Unavailable Friend, Jamshid Attending Unavailable Falvo Lang, Nereyda Referring Unavailable Falvo Lang, Nereyda Primary Care Unavailable Friend, Jamshid Attending Unavailable Falvo Lang, Nereyda Referring Unavailable Falvo Lang, Nereyda Primary Care Unavailable Friend, Jamshid Attending Unavailable Falvo Lang, Nereyda Referring Unavailable Falvo Lang, Nereyda Primary Care Unavailable Friend, Jamshid Attending Unavailable Falvo Lang, Nereyda Referring Unavailable Falvo Lang, Nereyda Primary Care Unavailable Falvo Lang, Nereyda Attending Unavailable Falvo Lang, Nereyda Referring Unavailable Hutchins, Henry Attending Unavailable Hutchins, Henry Referring Unavailable Falvo Lang, Nereyda Primary Care Unavailable Allergies Allergy Classification Reported Allergen(s) Allergy Type Date of Onset Reaction(s) Facility (5 sources) Bee; Translations: [BEES] Propensity to adverse reactions (disorder) 3 Anaphylaxis [facility] Repository (6 sources) peanut; Translations: [PEANUTS] Propensity to adverse reactions (disorder) 3 Anaphylaxis [facility] Repository (13 sources) Bee pollen Drug Allergy 1 Anaphylaxis [facility] (13 sources) peanut allergenic extract Drug Allergy 1 Anaphylaxis [facility] (1 source) Bee/Wasp/Ant venom Allergy to substance (disorder) 5 [facility] (1 source) Bee pollen Drug allergy (disorder) 5 [facility] Repository (1 source) peanut allergenic extract Drug Allergy 5 [facility] Repository Medications Current Medications Medication Drug Class(es) Dates Sig (Normalized) Sig (Original) acetaminophen 500 mg oral tablet (16 sources) Start: 12-11-2020 Tylenol Active 500 mg SL/PO NEEDED as needed for Pain December 11, 2020 12:00am Tylenol Extra St rength 500 mg tablet 2 tablets as needed active [facility] Comment on above: Take by mouth as nee ded. 24 hr buPROPion hydrochloride 300 mg extended release oral tablet (4 sources) Aminoketone Start: 12-10-2024 buPROPion XL (Wellbutrin XL) 300 MG 24 hr tablet 12/10/2024 Active Start: 09-06-2024 take 1 tablet by florencia th once daily in the morning Bupropion Hcl (Wellbutrin Xl) 300 mg tablet extended release 24 hr Active 300 mg PO EVERY MORNING September 06, 2024 1:00am Start: 07-19-2024 take 1 tablet by florencia th every twenty-four hours buPROPion XL (Wellbutrin XL) 150 MG 24 hr tablet Take 150 mg by mouth. 07/19/2024 Active busPIRone hydrochloride 10 mg oral tablet (3 sources) Start: 11-15-2024 take 1 tablet by mouth twice daily busPIRone (Buspar) 10 MG tablet Take 10 mg by mouth 2 times daily. 12/07/2024 Active cetirizine hydrochloride 10 mg oral tablet (2 sources) Histamine-1 Receptor Antagonist Start: 11-15-2024 take 1 tablet by mouth once daily Cetirizine (Zyrtec) 10 mg tablet Active 10 mg PO DAILY November 15, 2024 1:00am Allergies [id number] 0.3 ml EPINEPHrine 1 mg/ml auto-injector (10 sources) alpha-Adrenergic Agonist, beta-Adrenergic Agonist, Catecholamine Start: 12-19-2024 EPINEPHrine (Epipen) 0.3 MG/0.3ML injection syringe 12/19/2024 Active Start: 11-26-2022 Epinephrine (E pipen) 0.3 mg/0.3 mL Auto-Injector Active 0.3 mg IM Q4H as needed for allergies November 26, 2022 1:00am Start: 03-06-2022 EPINEPHrine (E PIPEN) 0.3 mg/0.3 mL auto-injector as needed. 0 03/06/2022 Active epinephrine 0.3 mg/0.3 mL injection, auto-injector active Nayla Kline AT [facility] Comment on above: as needed. esomeprazole 40 mg delayed release oral capsule (20 sources) Proton Pump Inhibitor Start: End: take 1 capsule by mouth once daily in the morning Esomeprazole Magnesium 40 mg capsule,delayed release(DR/EC) Active 40 mg PO EVERY MORNING 90 March 28, 2025 8:15am ondansetron 4 mg oral tablet (14 sources) Serotonin-3 Receptor Antagonist Start: End: 023 take 1 tablet by mouth every eight hours as needed for nausea and vomiting Ondansetron Hcl 4 mg tablet Active 4 mg PO Q8H as needed for nausea and vomiting 45 June 16, 2023 4:44pm Opzelura 1.5 % cream (1 source) Start: 025 Opzelura 1.5 % cream 12/19/2024 Active phentermine hydrochloride 37.5 mg oral tablet (1 source) Sympathomimetic Amine Anorectic Start: 024 take 1 tablet by mouth once daily phentermine (Adipex-P) 37.5 MG tablet Take 37.5 mg by mouth daily. 06/10/2024 Active vancomycin 125 mg oral capsule (20 sources) Glycopeptide Antibacterial Start: 023 End: 024 take 1 capsule by mouth every six hours as needed Vancomycin 125 mg capsule Active 125 mg PO EVERY 6 HOURS as needed for CDIFF October 23, 2023 9:34am Start: 09-24-2022 End: 09-24-2022 take 1 capsule by mouth every six hours Vancomycin 125 mg capsule Discontinued 125 mg PO EVERY 6 HOURS 40 0 September 24, 2022 1:00am September 24, 2022 4:04pm Completed/Discontinued Medications Medication Drug Class(es) Dates Sig (Normalized) Sig (Original) amoxicillin 875 mg / clavulanate 125 mg oral tablet (1 source) Penicillin-class Antibacterial Start: 08-12-2024 End: 08-22-2024 take 1 tablet by mouth every twelve hours amoxicillin-clavul anate (Augmentin) 875-125 MG tablet Take 1 tablet by mouth every 12 hours. 08/12/2024 08/22/2024 ARIPiprazole 2 mg oral tablet (4 sources) Atypical Antipsychotic Start: 10-23-2023 End: 09-06-2024 take 1 tablet by mouth once daily Aripiprazole 2 mg tablet Discontinued 2 mg PO DAILY October 23, 2023 1:00am September 06, 2024 10:18am cephalexin 500 mg oral capsule (1 source) Cephalosporin Antibacterial Start: 05-11-2022 End: 05-18-2022 take 1 capsule by mouth three times daily cephALEXin (KEFLEX) 500 mg capsule Indications: Partial thickness burn of left hand including fingers, initial encounter Take 1 capsule by mouth three times daily for 7 days. 21 capsule 0 05/11/2022 05/18/2022 Comment on above: Take 1 capsule by [facility] three times daily for 7 days. CETIRIZINE HCL/PSEUDOEPHEDRINE (ZYRTEC-D ORAL) (2 sources) CETIRIZINE HCL/PSEUDOEPHEDRIN E (ZYRTEC-D ORAL) Take by mouth. 0 Active Comment on above: Take by mouth. colestipol hydrochloride 1000 mg oral tablet (11 sources) Bile Acid Sequestrant Start: 12-16-2022 End: 05-18-2024 Colestipol 1 gram tablet Discontinued 1 g PO BEDTIME October 23, 2023 9:33am May 18, 2024 3:52pm avoid other medications one hour before or 4 hours after Start: 12-16-2022 End: 10-23-2023 take 2 g by mouth once daily Colestipol Discontinued 2 GM PO DAILY 60 December 16, 2022 12:00am October 23, 2023 9:34am avoid other medications one hour before or 4 hours after dicyclomine hydrochloride 20 mg oral tablet (20 sources) Anticholinergic Start: 12-03-2023 End: 03-01-2025 Dicyclomine 20 mg tablet Discontinued 20 mg PO DAILY NEEDED as needed for abdominal pain 30 6 March 01, 2025 7:03am March 01, 2025 11:48am take routine two times a day and once as needed Start: 11-10-2022 End: 12-03-2023 take 1 tablet by mouth three times daily Dicyclomine 20 mg tablet Discontinued 20 mg PO THREE TIMES A DAY 90 2 August 25, 2023 2:32pm December 03, 2023 5:46pm Start: 09-19-2022 End: 11-10-2022 take 1 capsule by mouth twice daily Dicyclomine 10 mg capsule Discontinued 10 mg PO TWICE A DAY 60 2 September 19, 2022 1:00am November 10, 2022 9:22am dicyclomine (Diallo tyl) 10 MG capsule Inject into the shoulder, thigh, or buttocks. Active escitalopram 20 mg oral tablet (3 sources) Serotonin Reuptake Inhibitor Start: 10-23-2023 End: 11-15-2024 take 1 tablet by mouth once daily Escitalopram Oxalate 20 mg tablet Discontinued 20 mg PO DAILY October 23, 2023 1:00am November 15, 2024 12:44pm 21 day ethinyl estradiol 0.572065 mg/hr / etonogestrel 0.005 mg/hr vaginal system (2 sources) Progestin, Estrogen Start: 01-07-2013 NUVARING 0.12-0.015 mg/24 hr vaginal ring fluconazole 200 mg oral tablet (11 sources) Azole Antifungal Start: 07-31-2022 End: 09-19-2022 Fluconazole 200 mg tablet Discontinued 200 mg PO .Q3WK July 31, 2022 12:00am September 19, 2022 11:33am skin Start: 07-17-2022 take 1 tablet by florencia th every week fluconazole (DIFLUCAN) 200 mg tablet TAKE 1 TABLET BY MOUTH 1 TIME A WEEK FOR 3 WEEKS 0 07/17/2022 Active Comment on above: TAKE 1 TABLET BY FLORENCIA TH 1 TIME A WEEK FOR 3 WEEKS Ibuprofen (2 sources) Nonsteroidal Anti-inflammatory Drug IBUPROFEN (MOTRIN ORAL) Take by mouth as needed. 0 Active Comment on above: Take by mouth as nee ded. ID NOW COVID-19 TEST KIT kit (2 sources) Start: 03-05-20 ID NOW COVID-19 TEST KIT kit one time a week. 0 03/05/2022 Active Comment on above: one time a week. L GASSERI/B BIFIDUM/B LONGUM (PROBIOTIC COLON CARE ORAL) (2 sources) L GASSERI/B BIFI DUM/B LONGUM (PROBIOTIC COLON CARE ORAL) Take by mouth. 0 Active Comment on above: Take by mouth. Loratadine (2 sources) LORATADINE (CLAR ITIN ORAL) Take by mouth. 0 Active Comment on above: Take by mouth. metoclopramide 5 mg oral tablet (1 source) Dopamine-2 Receptor Antagonist Start: 02-19-20 End: 03-11-20 take 1 tablet by mouth twice daily 30 minutes before mealtime, then take 1 tablet by mouth twice daily, then take 1 tablet by mouth once daily Metoclopramide Hcl 5 mg tablet Discontinued 5 mg PO TWICE A DAY 112 February 19, 2024 12:00am March 11, 2024 7:38am administer 30 minutes before meals 5mg BID for 3 weeks, 5mg BID for 2 weeks, 5mg once daily for 1 week oxyCODONE hydrochloride 5 mg oral tablet (14 sources) Opioid Agonist Start: 08-07-20 End: 09-19-20 take 1 tablet by mouth every six hours as needed for pain Oxycodone 5 mg tablet Discontinued 5 mg PO EVERY 6 HOURS as needed for pain (scale score 7-10) 20 4 0 August 07, 2022 September 19, 2022 11:33am Acute postoperative pain Other acute postprocedural pain Start: 09-30-2021 take 5 mg by mouth e very six hours Oxycodone Active 5 MG PO EVERY 6 HOURS 7 7 September 30, 2021 pantoprazole 40 mg delayed release oral tablet [...] tab by mouth daily for 3 days. prucalopride 2 mg oral tablet (1 source) Start: 03-01-2024 End: 06-14-2024 take 1 tablet by mouth once daily Prucalopride 2 mg tablet Discontinued 2 mg PO DAILY 30 March 01, 2024 12:00am June 14, 2024 3:33pm silver sulfADIAZINE 10 mg/ml topical cream (1 source) Sulfonamide Antibacterial Start: 05-11-2022 End: 05-11-2022 silver sulfADIAZINE 1 % (SILVADENE,THERMAZ ESTRELLA) Tenapanor (Ibsrela) 50 mg tablet (1 source) Start: 06-14-2024 End: 09-06-2024 take 1 tablet by mouth once daily at dinner Tenapanor (Ibsrela) 50 mg tablet Discontinued 50 mg PO TWICE A DAY 60 June 14, 2024 12:00am September 06, 2024 10:19am must administer immediately before first meal of day/breakfast and dinner Problems Active Problems Problem Classification Problem Date Documented Da te Episodic/Chronic Abdominal pain (17 sources) Umbilical pain; Translations: [Periumbilical pain] Onset: 06-16-2013 06-16-2013 Episodic Allergic reactions (2 sources) Inflammatory dermatosis; Translations: [Dermatitis, unspecified] Onset: 08-15-2022 Episodic Anal and rectal conditions (13 sources) Rectal pain; Translations: [Other specified diseases of anus and rectum] Episodic Anxiety disorders (11 sources) Anxiety; Translations: [Anxiety disorder, unspecified] Onset: 02-02-2025 05-04-2023 Chronic Esophageal disorders (13 sources) Gastric reflux; Translations: [Gastro-esophageal reflux disease without esophagitis] Chronic Comment on above: CONTROLLED WITH MED Intestinal infection (3 sources) Clostridium difficile diarrhea; Translations: [Enterocolitis due to Clostridium difficile, not specified as recurrent] 08-27-2023 Episodic Other disorders of stomach and duodenum (2 sources) Gastroparesis syndrome; Translations: [Gastroparesis] 09-06-2024 Episodic Other gastrointestinal disorders (6 sources) Non-infective diarrhea; Translations: [Other intestinal malabsorption] 12-16-2022 Chronic Other gastrointestinal disorders (6 sources) Irritable bowel syndrome; Translations: [Irritable bowel syndrome without diarrhea] 05-04-2023 Chronic Other gastrointestinal disorders (6 sources) Other intestinal malabsorption; Translations: [Other specified intestinal malabsorption] Onset: 01-12-2025 05-04-2023 Chronic Other gastrointestinal disorders (6 sources) Irritable bowel syndrome without diarrhea; Translations: [Irritable bowel syndrome] Onset: 01-12-2025 05-04-2023 Chronic Other gastrointestinal disorders (9 sources) Constipation alternates with diarrhea; Translations: [Other specified symptoms and signs involving the digestive system and abdomen] 09-19-2022 Episodic Other gastrointestinal disorders (10 sources) Dysphagia; Translations: [Dysphagia, unspecified] 09-19-2022 Episodic Other gastrointestinal disorders (4 sources) Other specified symptoms and signs involving the digestive system and abdomen; Translations: [Other symptoms involving digestive system] Episodic Other nervous system disorders (1 source) Other chronic pain; Translations: [Other chronic pain] Onset: 08-26-2018 Chronic Other nervous system disorders (1 source) Bilateral carpal tunnel syndrome; Translations: [Carpal tunnel syndrome, bilateral upper limbs] 12-27-2024 Chronic Other nervous system disorders (1 source) 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; Translations: [Lesion of ulnar nerve, bilateral upper limbs] 12-27-2024 Chronic Other nervous system disorders (1 source) Carpal tunnel syndrome, left upper limb; Translations: [Carpal tunnel syndrome] Onset: 11-16-2024 12-23-2024 Chronic Other nervous system disorders (1 source) Carpal tunnel syndrome, right upper limb; Translations: [Carpal tunnel syndrome] Onset: 11-16-2024 12-23-2024 Chronic Other nervous system disorders (13 sources) Acute postoperative pain; Translations: [Other acute postprocedural pain] 09-30-2021 Episodic Other nervous system disorders (5 sources) Other acute postprocedural pain; Translations: [Other acute postoperative pain] Episodic Other screening for suspected conditions (not mental disorders or infectious disease) (1 source) Encounter for screening mammogram for malignant neoplasm of breast; Translations: [Encounter for screening mammogram for malignant neoplasm of breast] Onset: 08-02-2025 Episodic Other upper respiratory infections (1 source) Viral upper respiratory tract infection; Translations: [Acute upper respiratory infection, unspecified] 08-15-2024 Episodic Unclassified (2 sources) New Patient; Translations: [New Patient] Onset: 12-27-2024 Unclassified (1 source) Cough, unspecified; Translations: [Cough, unspecified] Onset: 08-31-2024 Past or Other Problems Problem Classification Problem Date Documented Da te Episodic/Chronic Biliary tract disease (2 sources) Biliary colic; Translations: [Calculus of bile duct without cholangitis or cholecystitis without obstruction] Onset: 01-31-2013 01-31-2013 Episodic Fonseca (3 sources) Partial thickness burn of hand; Translations: [Burn of second degree of left hand, unspecified site, initial encounter] Onset: 05-11-2022 Episodic Fracture of lower limb (1 source) Closed fracture of phalanx of foot; Translations: [Displaced unspecified fracture of left lesser toe(s), initial encounter for closed fracture] Onset: 05-10-2021 05-10-2021 Episodic Gastritis and duodenitis (11 sources) Bile-induced gastritis; Translations: [Other gastritis without bleeding] Onset: 02-02-2025 12-16-2022 Episodic Other connective tissue disease (1 source) Foot pain; Translations: [Pain in left foot] Onset: 05-10-2021 05-10-2021 Episodic Other disorders of stomach and duodenum (2 sources) Gastroparesis; Translations: [Gastroparesis] Onset: 01-12-2025 Episodic Other gastrointestinal disorders (2 sources) Diarrhea; Translations: [Diarrhea, unspecified] Onset: 11-28-2013 11-28-2013 Episodic Other gastrointestinal disorders (6 sources) Dysphagia, unspecified; Translations: [Dysphagia, unspecified] Onset: 01-12-2025 Episodic Other nervous system disorders (1 source) Anesthesia of skin; Translations: [Anesthesia of skin] Onset: 12-28-2024 Episodic Other non-traumatic joint disorders (1 source) Pain in wrist; Translations: [Pain in left wrist] Onset: 12-23-2024 12-23-2024 Episodic Spondylosis; intervertebral disc disorders; other back problems (4 sources) Low back pain; Translations: [Low back pain] Onset: 08-26-2018 08-26-2018 Episodic Results Test Name Value Interpretation Reference Range Facility SCRN MAMM (CAD)W/CODEY BILATo n 08-02-2025 SCRN MAMM (CAD)W/CODEY BILAT [facility] Imaging Services [address] [place] [address] [id number] SCRN MAMM (CAD)W/CODEY BILAT MR#: [id number] Acct: [id number] Name: SUHA IRVAS Rep #: [id number] : 1985 F 40 From: Tawanda miranda MD PCP: Nereyda Landry MD Status: [facility] Study: SCRN MAMM (CAD)W/CODEY BILAT Date of Exam: 02/19 Exam# [id number] Ordering Dr: Medhat Priest SENIOR WIND ENERGY CONSULTANT-C EXAM: SCRN MAMM (CAD)W/CODEY BILAT DATE: 08/02/2025 CLINICAL HISTORY: F, Age 40 y/o , SCREENING No family history. TECHNIQUE: Procedure Code: [id number] Modality: MG Procedure: SCRN MAMM (CAD)W/CODEY BILAT COMPARISON: Prior exam(s) dated August 02, 2024.. FINDINGS: TISSUE DENSITY: The breasts are heterogeneously dense, which may obscure small masses. Bilateral Breast Mammographic Findings: No significant masses, calcifications or other abnormalities are identified. Stable asymmetry of breast tissue were more breast tissue is seen in the upper-outer quadrant of the right breast as compared to the left side. Stable small benign-appearing bilateral axillary lymph nodes. No suspicious masses, areas of developing architectural distortion, or suspicious calcifications. There has been no significant interval change. BI/SCRN MAMM (CAD)W/CODEY BILAT IMPRESSION: Stable bilateral screening mammogram. OVERALL FINAL ASSESSMENT BI-RADS 2: BENIGN RECOMMENDATION: Routine annual follow-up in 1 Year Additional Recommendation none A letter with findings and recommendations will be mailed to the patient. Reading Location: [id number] CC: DEVANTE Priest; Nereyda Alexandra MD Customs Opener Verifier Packer: Signed Normal [facility] Relevant diagnostic tests/la boratory data Narrative 06-07-2025 Fall risk assessment no [employer] Work Phone: MEDS REVIEW Done [employer] Work Phone: MEDS REVIEWD Medications reviewed without changes [employer] Work Phone: Relevant diagnostic tests/la boratory data Narrative 06-02-2025 Fall risk assessment no [employer] Work Phone: MEDS REVIEWD Medications reviewed without changes [employer] Work Phone: Gastroenterology Visit Repor ton 03-28-2025 Gastroenterology Visit Report [facility] [address] [place] [address] OFFICE VISIT Date of Service: 03/28/25 MR#: [id number] Acct: [id number] Name: SUHA RIVAS Rep #: [id number] : 1985 Provider: Jamshid Escobedo DO Age/Sex: 39/F Location: [email or web address] Status: Signed Intake Vital Signs 11/17/24 08:55 Height 5 ft 8 in Intake Visit Reasons: 4 M FU Allergies bee pollen (Bee Pollen) Allergy (Severe, Verified 11/17/24 08:54) Anaphylaxis peanut Allergy (Severe, Verified 11/17/24 08:54) Anaphylaxis Medications ???Medication ???Instructions ???Recorded ???Confirmed ???Type Tylenol 500 mg PO/SL PRN PRN Pain 12/11/20 03/28/25 History epinephrine 0.3 mg/0.3 mL 0.3 mg IM Q4H PRN allergies 03/28/25 History injection, auto-injector (EpiPen) ondansetron HCl 4 mg tablet 4 mg PO Q8H PRN nausea and 3 03/28/25 Rx vomiting #45 tabs vancomycin 125 mg capsule 125 mg PO Q6H PRN CDIFF 10/23/23 0 03/28/25 History colestipol 1 gram tablet 1 g PO HS #90 tabs 05/18/24 Rx bupropion HCl 300 mg 24 hr tablet, 300 mg PO QAM 09/06/24 03/28/25 History extended release (Wellbutrin XL) buspirone 10 mg tablet 10 mg PO BID 11/15/24 03/28/25 His tory cetirizine 10 mg tablet (Zyrtec) 10 mg PO DAILY Allergies 11/15/24 03/28/25 History dicyclomine 20 mg tablet 20 mg PO DAILY PRN PRN abdominal 0 03/01/25 03/28/25 Rx pain #30 tabs esomeprazole magnesium 40 mg 40 mg PO QAM #90 caps 03/28/2510/22 Rx capsule,delayed release hyoscyamine sulfate 0.125 mg tablet 0.125 mg PO Q6H PRN dyspepsia # 90 03/28/25 03/28/25 Rx tabs ondansetron HCl 8 mg tablet 8 mg PO Q8H PRN nausea and 5 03/28/25 Rx vomiting #60 tabs PFSH Medical History Wears glasses Anxiety Difficulty swallowing History of IBS Low iron PONV (postoperative nausea and vomiting) Non-smoker Diarrhea Abdominal pain Depression Alcohol use Back pain History of hiatal hernia Gastric reflux Surgical History History of hysterectomy History of tubal ligation H/O dilation and curettage History of esophagogastroduodenosco py (EGD) Hx of colonoscopy Hx of surgical procedure Hx laparoscopic cholecystectomy Hx of wisdom tooth extraction Hx of tonsillectomy Family History Other Breast cancer Diabetes High cholesterol Hypertension Thyroid disorder Social History Smoking Status: Never smoker alcohol intake: current alcohol intake frequency: a few times a month Alcohol type: beer and wine substance use type: does not use HPI HPI Details: SUHA RIVAS, is a 39 F who presents to the office today for follow up. PCP OV 06.12.22 with abd pain and loose stools noting some food triggers. *BGI established 09.19.22 with abdominal pain and loose stools that have been getting worse for the last 6-12 months; notes stress as a trigger. Heartburn has been a daily problem; esomeprazole somewhat helpful, stress is a trigger. Intermittent epigastric pain following cholecystectomy 2012. ? EGD and colonoscopy 12.01.22 EGD gastritis; duodenitis. No additional path changes. ? Colonoscopy congested colon; TI normal. No path changes. ? Stool calprotectin, EP, lactoferrin. ??? PCR+ C.difficile without toxin/antigens OV 12.16.22 Start colestipol 1-2 gram QD; continue dicyclomine PRN. Seeing PCP soon for discussion of anxiety treatment. OV 05.04.23 She did start Lexapro 20mg QD through PCP. She has noted some increased anxiety recently (has a trip coming up) and has caused increased upset stomach, cramping, alternating BM. Colestipol increased to 2gram QD and dicyclomine BID and Nexium 40mg QD (has attempted to stop Nexium but had increased stomach discomfort). Prior to increased anxiety she was feeling much better. BM occur daily but with incomplete evacuation and need to repeat BM approximately 15 minutes later, this was present prior to colestipol increase. Prior to starting colestipol she was having a lot of loose stools alternating with constipation. With colestipol she is no longer having foamy/bile diarrhea. Contact 06.16.23 with mild nausea with start of Semaglutide, reassured this is normal. Recently started on ATB therapy for sinuses and has had abnormal stools since the start of this. Start vancomycin. Contact, 08.26.23, portal with recent ATB use without preventative vancomycin; she has been having urgent loose stools. ? Stoo (more content not included)... [facility] Office Visiton 12-27-2024 Follow-up visit [id number] Jonathon Rivas 1985 F Date Provider Department Center 12/27/2024 [id number], SCOTT R [facility] ORT None No family history on file Level of Service:01226 UT OFFICE/OUTPATIENT NEW LOW MDM 30 MINUTES Reason for Visit and Comments: New Patient [542] - Bilateral carpal tunnel Normal [facility] Progress Noteon 12-27-2024 Progress Note [facility] - [address] [address] Dept: [phone] Dept 12/27/2024 Chief Complaint Patient presents with New Patient Bilateral carpal tunnel HISTORY Suha Rivas is a 39 y.o. Right-handed female who presents today complaining of numbness, sharp/stabbing, throbbing, and tingling in her BILATERAL hand left worse than right, involving the index finger, long finger, ring finger, little finger, thumb that has been present for 6 month(s) She reports nighttime awakening and frequently dropping things. She admits to medial elbow discomfort. Previous treatments include: Night Splinting: Yes Injections: No EMG: Yes Surgery on Affected Extremity: No Had a second opinion. She is seeing Dr. Vero Douglas [facility] for this. Her biggest symptom is centered around her left hand specifically numbness of all fingers most severely affecting the ring finger. She is a with the most recent 1 showing mild carpal tunnel syndrome. She has been seen previously by Dr. Che Pham who ordered the 2nd nerve conduction study for completion of the EMG portion as well as an MRI due to clicking and popping on the mid dorsum of her left wrist. She reports her most concerning symptoms of the numbness and tingling which wake her from sleep she is wearing night splints but she takes them off every morning. She is 35 as they bother her during sleep. She has never had a steroid injection. No results found for: HGBA1C No past surgical history on file. No past medical history on file. No family history on file. Social History Socioeconomic History Marital status: Spouse name: Not on file Number of children: Not on file Years of education: Not on file Highest education level: Not on file Occupational History Not on file Tobacco Use Smoking status: Not on file Smokeless tobacco: Not on file Substance and Sexual Activity Alcohol use: Not on file Drug use: Not on file Sexual activity: Not on file Other Topics Concern Not on file Social History Narrative Not on file Social Drivers of Health Financial Resource Strain: Not on file Food Insecurity: Not on file Transportation Needs: Not on file Physical Activity: Not on file Stress: Not on file Social Connections: Not on file Intimate Partner Violence: Not on file Housing Stability: Not on file Not on File Current Outpatient Medications Medication Sig Dispense Refill ARIPiprazole (Abilify) 2 MG tablet Take 2 mg by mouth daily. buPROPion XL (Wellbutrin XL) 150 MG 24 hr tablet Take 150 mg by mouth. buPROPion XL (Wellbutrin XL) 300 MG 24 hr tablet busPIRone (Buspar) 10 MG tablet Take 10 mg by mouth 2 times daily. colestipol (Colestid) 1 g tablet TAKE 1 TABLET BY MOUTH AT BEDTIME. AVOID OTHER MEDICATIONS 1 HOUR BEFORE OR 4 HOURS AFTER dicyclomine (Bentyl) 10 MG capsule Inject into the shoulder, thigh, or buttocks. dicyclomine (Bentyl) 20 MG tablet TAKE 1 TABLET BY MOUTH TWICE DAILY AND ONCE NEEDED EPINEPHrine (Epipen) 0.3 MG/0.3ML injection syringe esomeprazole (NexIUM) [address] capsule Take 40 mg by mouth daily. Opzelura 1.5 % cream phentermine (Adipex-P) 37.5 MG tablet Take 37.5 mg by mouth daily. No current facility-administered medications for this visit. OBJECTIVE BP 120/82 Resp 12 Ht 1.676 m (5' 6) Wt 122 kg (268 lb) BMI 43.26 kg/m? Ortho Exam Comprehensive Exam of BILATERAL Upper Extremities RIGHT LEFT Atrophy not present not present Tinel's at Wrist POSITIVE POSITIVE Carpal Compression POSITIVE POSITIVE Tinel's at Elbow POSITIVE POSITIVE Flexion/Compression Elbow POSITIVE POSITIVE Ulnar Nerve Subluxation not appreciated not appreciated APB Strength Not tested Not tested Intrinsic Strength 5/5 5/5 2-point discrimination (mm) RIGHT Hand Thumb Index Long Ring Small r u r u r u r u r u 5 5 5 5 5 5 5 5 5 5 Median Ulnar 2-point discrimination (mm) LEFT Hand Thumb Index Long Ring Small r u r u r u r u r u 5 5 5 5 5 5 6 7 5 5 Median Ulnar Palpable radial pulses bilaterally. Full range of motion without evidence of instabilities in bilateral shoulders, elbows, wrists, or digits. CTS 6 RIGHT LEFT Numbness in predominantly or exclusively in Median Nerve distribution yes Yes, 3.5 points Nocturnal Symptoms Yes, 4 points Yes, 4 points Thenar Atrophy or weakness No No Positve Phalen's(Durkins) test Yes, 5 points Yes, 5 points 2ppt >5mm Yes, 4.5 points Yes, 4.5 points Positive Tinels Yes, 4 points Yes, 4 points Total (score >12 + for CTS) 20 20 Negative foveal tenderness Negative TFCC loading. Negative piano rivera Negative Palmer's Negative ECU subluxation Negative de Quervain's IMAGING none NCT/EMG (Copied Impression) PROCEDURE none ASSESSMENT (G56.03) Carpal tunnel syndrome, bilateral (G56.23) Cubital tunnel syndrome, bilateral 1. Carpal tunnel syndr (more content not included)... [facility] Gastroenterology Visit Repor ton 12-08-2024 Gastroenterology Visit Report [facility] [address] [place] [address] OFFICE VISIT Date of Service: 12/08/24 MR#: [id number] Acct: [id number] Name: SUHA RIVAS Rep #: [id number] : 1985 Provider: Jamshid Escobedo DO Age/Sex: 39/F Location: [facility] Status: Signed Intake Vital Signs 08/06/24 21:36 11/17/24 08:55 Height 5 ft 8 in 5 ft 8 in Intake Visit Reasons: Test Result Chief Complaint: Abdominal pain Allergies bee pollen (Bee Pollen) Allergy (Severe, Verified 11/17/24 08:54) Anaphylaxis peanut Allergy (Severe, Verified 11/17/24 08:54) Anaphylaxis Medications ???Medication ???Instructions ???Recorded ???Confirmed ???Type Tylenol 500 mg PO/SL PRN PRN Pain 12/11/20 12/08/24 History epinephrine 0.3 mg/0.3 mL 0.3 mg IM Q4H PRN allergies 12/08/24 History injection, auto-injector (EpiPen) ondansetron HCl 4 mg tablet 4 mg PO Q8H PRN nausea and 3 12/08/24 Rx vomiting #45 tabs vancomycin 125 mg capsule 125 mg PO Q6H PRN CDIFF 10/23/23 0 12/08/24 History esomeprazole magnesium 40 mg 40 mg PO QAM #90 caps 02/09/24 Rx capsule,delayed release colestipol 1 gram tablet 1 g PO HS #90 tabs 05/18/24 Rx bupropion HCl 300 mg 24 hr tablet, 300 mg PO QAM 09/06/24 12/08/24 History extended release (Wellbutrin XL) buspirone 10 mg tablet 10 mg PO BID 11/15/24 12/08/24 His tory cetirizine 10 mg tablet (Zyrtec) 10 mg PO DAILY Allergies 11/15/24 12/08/24 History dicyclomine 20 mg tablet 20 mg PO DAILY PRN PRN abdominal 0 11/15/24 12/08/24 History pain PFSH Medical History Wears glasses Anxiety Difficulty swallowing History of IBS Low iron PONV (postoperative nausea and vomiting) Non-smoker Diarrhea Abdominal pain Depression Alcohol use Back pain History of hiatal hernia Gastric reflux Surgical History History of hysterectomy History of tubal ligation H/O dilation and curettage History of esophagogastroduodenosco py (EGD) Hx of colonoscopy Hx of surgical procedure Hx laparoscopic cholecystectomy Hx of wisdom tooth extraction Hx of tonsillectomy Family History Other Breast cancer Diabetes High cholesterol Hypertension Thyroid disorder Social History Smoking Status: Never smoker alcohol intake: current alcohol intake frequency: a few times a month Alcohol type: beer and wine substance use type: does not use HPI HPI Chief Complaint: Abdominal pain Details: SUHA RIVAS, is a 39 F who presents to the office today for follow up. PCP OV 06.12.22 with abd pain and loose stools noting some food triggers. *BGI established 09.19.22 with abdominal pain and loose stools that have been getting worse for the last 6-12 months; notes stress as a trigger. Heartburn has been a daily problem; esomeprazole somewhat helpful, stress is a trigger. Intermittent epigastric pain following cholecystectomy 2012. ? EGD and colonoscopy 12.01.22 EGD gastritis; duodenitis. No additional path changes. ? Colonoscopy congested colon; TI normal. No path changes. ? Stool calprotectin, EP, lactoferrin. ??? PCR+ C.difficile without toxin/antigens OV 12.16.22 Start colestipol 1-2 gram QD; continue dicyclomine PRN. Seeing PCP soon for discussion of anxiety treatment. OV 05.04.23 She did start Lexapro 20mg QD through PCP. She has noted some increased anxiety recently (has a trip coming up) and has caused increased upset stomach, cramping, alternating BM. Colestipol increased to 2gram QD and dicyclomine BID and Nexium 40mg QD (has attempted to stop Nexium but had increased stomach discomfort). Prior to increased anxiety she was feeling much better. BM occur daily but with incomplete evacuation and need to repeat BM approximately 15 minutes later, this was present prior to colestipol increase. Prior to starting colestipol she was having a lot of loose stools alternating with constipation. With colestipol she is no longer having foamy/bile diarrhea. Contact 06.16.23 with mild nausea with start of Semaglutide, reassured this is normal. Recently started on ATB therapy for sinuses and has had abnormal stools since the start of this. Start vancomycin. Contact, 08.26.23, portal with recent ATB use without preventative vancomycin; she has been having urgent loose stools. ? Stool lactoferrin, EP WNL C.Difficile PCR +, antigen/toxin negative OV 10.23.23 Nausea, bloating, heartburn after ea (more content not included)... [facility] EGD Reporton 11-17-2024 EGD Report [facility] Medical Records Department [address] [place] [address] EGD Report MR#: [id number] Acct: [id number] Name: SUHA RIVAS Rep #: [id number] : 1985 39 From: Jamshid Friend PCP: Nereyda Landry MD Status:[facility] Patient Name: Suha Rivas Procedure Date: 11/17/2024 9:47 AM Date of : 1985 Age: 39 Procedure: Upper GI endoscopy Indications: Epigastric abdominal pain, Dysphagia Providers: Jamshid Escobedo DO Referring MD: Nereyda Alexandra Md Medicines: Monitored Anesthesia Care Patient Profile: This is a 39 year old female. Refer to note in patient chart for documentation of history and physical. Patient has symptoms of chronic epigastric abdominal pain, dysphagia with both liquids and solids and chronic dyspepsia. Complications: No immediate complications. Procedure: Pre-Anesthesia Assessment: - Prior to the procedure, a History and Physical was performed, and patient medications and allergies were reviewed. The patient is competent. The risks and benefits of the procedure and the sedation options and risks were discussed with the patient. All questions were answered and informed consent was obtained. Patient identification and proposed procedure were verified by the physician in the pre-procedure area. Mental Status Examination: alert and oriented. Airway Examination: normal oropharyngeal airway and neck mobility. Respiratory Examination: clear to auscultation. CV Examination: normal. Prophylactic Antibiotics: The patient does not require prophylactic antibiotics. Prior Anticoagulants: The patient has taken no anticoagulant or antiplatelet agents except for NSAID medication. ASA Grade Assessment: II - A patient with mild systemic disease. After reviewing the risks and benefits, the patient was deemed in satisfactory condition to undergo the procedure. The anesthesia plan was to use monitored anesthesia care (MAC). Immediately prior to administration of medications, the patient was re-assessed for adequacy to receive sedatives. The heart rate, respiratory rate, oxygen saturations, blood pressure, adequacy of pulmonary ventilation, and response to care were monitored throughout the procedure. The physical status of the patient was re-assessed after the procedure. After obtaining informed consent, the endoscope was passed under direct vision. Throughout the procedure, the patient's blood pressure, pulse, and oxygen saturations were monitored continuously. The Endoscope was introduced through the mouth, and advanced to the second part of duodenum. The upper GI endoscopy was accomplished without difficulty. The patient tolerated the procedure well. Scope In: Scope Out: 10:02:39 AM Findings: Abnormal motility was noted in the esophagus. The cricopharyngeus was abnormal. There are extra peristaltic waves in the esophageal body. The distal esophagus/lower esophageal sphincter is spastic, but gives up passage to the endoscope. Secondary peristaltic waves are noted. A guidewire was placed and the scope was withdrawn. Dilation was performed with a Savary dilator with no resistance at 60 Fr. A hiatal hernia was present. Patchy moderately erythematous mucosa without bleeding was found in the gastric body. Biopsies were taken with a cold forceps for histology. Verification of patient identification for the specimen was done. Estimated blood loss was minimal. No gross lesions were noted in the first portion of the duodenum. Biopsies were taken with a cold forceps for histology. Verification of patient identification for the specimen was done. Estimated blood loss was minimal. Impression: - Abnormal esophageal motility, suspicious for aperistalsis. Dilated. - Hiatal hernia. - Erythematous mucosa in the gastric body. Biopsied. - No gross lesions in the first portion of the duodenum. Biopsied. Recommendation: - Discharge patient to home. - Resume previous diet. - Continue present medications. - Await pathology results. - Repeat upper endoscopy in 1 year. Procedure Code(s): --- Professional --- 17648, Esophagogastroduodenosco py, flexible, transoral; with insertion of guide wire followed by passage of dilator(s) through esophagus over guide wire 19815, 59,51, Esophagogastroduodenosco py, flexible, transoral; with biopsy, single or multiple CPT copyright 2021 [employer]. All rights reserved. The codes documented in this report are preliminary and upon clutch specialist review may be revised to meet current compliance requirements. Jamshid Escobedo DO 11/17/2024 10:13:44 AM This report has been signed electronically. Number of Addenda: 0 Note Initiated On: 11/17/2024 9:47 AM 11/17/24 1014 Date Jamshid Kirkland Signluis daniel (more content not included)... [facility] H Pylori (initial)on 025 H Pylori (initial) ---- Patient Age/Sex Location Account Attending Physician SUHA RIVAS 39/F EN [id number] Jamshid Escobedo DO Specimen: [id number] Received: 11/17/24 Status: YAHIR Patel Num: [id number] Spec Type: IMMUNO Subm Dr: Jamshid Escobedo DO PHYSICIAN INSTITUTION [place] [address] SPECIMEN INFORMATION: Tissue Source: A- Gastric body biopsy Clinical Info: Irritable bowel syndrome, bile reflux disease, anxiety, bile salt-inducted diarrhea, gastroparesis, dysphagia Specimen Number: [id number] CPT code: 37031 METHODOLOGY: Deparaffinized sections of prefer/formalin-fixed tissue or PAP/DQ stained slides are incubated with monoclonal/polyclonal antibodies/oligonucleoti de probes. Localization is made via biotin free immunoperoxidase method. Appropriate controls are performed and reacted as expected. Results on target cell population are indicated in the following table: RESULTS: ANTIBODY / CLONE RESULT Block AH Pylori (polyclonal) negative These tests were developed and their performance characteristics determined by [facility]. They may not have been cleared or approved by the U.S. Food and Drug Administration. The FDA has determined that such clearance or approval is not necessary. The above immunohistochemical/dual JACKIE markers are ordered and reviewed by the Pathologist. INTERPRETATION: A. Gastric body, biopsy: Negative for Helicobacter pylori organisms. 11/18/2024 Signed (signature on file) Dr. Devon Good MD 11/18/24 1144 [facility] Comment on above: Performed By: #### P H.PYLORI #### [facility] [address] [facility]. [place], [place], [address] MR/POSTOP.WEST 11-17-2024 MR/POSTOP.[facility] Medical Records Department [address] [place] [address] Anesthesia Postop Eval I 11/17/24 1032 MR#: [id number] Acct: [id number] Name: SUHA RIVAS Rep #: [id number] : 1985 39 From: Ravindra Hutchins PCP: Nereyda Landry MD Status:REG SD Y Race: C Location: [place] [address] Anesthesia: Postop Eval I Current Vital Signs Temperature: 97.5 F Pulse Rate: 84 Blood Pressure: 128/68 Respiratory Rate: 18 Pulse Ox: 97 Oxygen Delivery Method: Room Air Assessment Airway patent: Yes Spontaneous unlabored respirations: Yes Mental status: Asleep nausea: No Vomiting: No Anesthesia Complication: No Fluid Hydration Crystalloid volume administer (ml): 30 Total IV fluid infused: 30 Progress Note Anesthesia document: Postop Eval 1 completed: Yes 11/17/24 1033 Date Ravindra Farnsworth Signature: Date CC: Signed [facility] MR/DIRTWKQD0nt 11-17-2024 MR/POSTOPAN2 [facility] Medical Records Department [address] [place] [address] Anesthesia Postop Eval II 11/17/241736 MR#: [id number] Acct: [id number] Name: SUAH RIVAS Rep #: [id number] : 1985 39 From: Jong Rock MD PCP: Nereyda Landry MD Status:DEP [facility] Y Race: C Location: EN Anesthesia Postop Eval I Sum Postop Eval Completion status Anesthesia document: Postop Eval 1 completed: Yes Anesthesia Postop Eval I Summary Anesthesia Postop Eval I Summary: Anesthesia Postop Eval I: Assessment Summary Airway patent Yes 11/17/24 10:33 [email or web address] Spontaneous unlabored Yes 11/17/24 10:33 [email or web address] respirations Mental status Asleep 11/17/24 10:33 [email or web address] nausea No 11/17/24 10:33 [email or web address] Vomiting No 11/17/24 10:33 [email or web address] Anesthesia Postop Eval I: Fluid Summary Crystalloid volume administer 30 11/17/24 10:33 [email or web address] (ml) Colloids volume administered ( ml) Blood Product volume administered (ml) Total IV fluid infused 30 11/17/24 10:33 [email or web address] Anesthesia Postop Eval I: Summary Notes Anesthesia Complication No 11/17/24 10:33 [email or web address] Anesthesia Complication Comment: Post-operative progress note Anesthesia: Postop Eval II Evaluation Mental status: Awake and Calm Pain Level: 0 nausea: No Vomiting: No Complications Anesthesia Complication: No 11/17/241736 Jong Rock MD Cosigner Signature: Date CC: Signed [facility] Surgery Specimen Level Kunal 11-17-2024 Surgery Specimen Level IV Patient Age/Sex Location Account Attending Physician SUHA RIVAS 39/F EN [id number] Jamshid Escobedo DO Specimen: [id number] Received: 11/17/24 Status: YAHIR Patel Num: [id number] Spec Type: EGD BIOPSY Subm Dr: aJmshid Friend, DO HEADER OPERATION: EGD, biopsy, dilation PRE-OP DIAGNOSIS: Irritable bowel syndrome, bile reflux gastritis, anxiety, bile salt-indicated diarrhea, dysphagia TISSUE SUBMITTED: A- Gastric body biopsy, B- Distal esophagus biopsy MICROSCOPIC DIAGNOSIS A. Gastric body, biopsy: Mild gastritis. See microscopic description and comment. B. Distal esophagus, biopsy: Fragments of gastroesophageal mucosa with chronic inflammation. Intestinal metaplasia (goblet cell metaplasia) not identified. See comment. 11/18/2024 COMMENT A. The results of immunohistochemistry for Helicobacter pylori will be reported separately ([id number]). B. Alcian blue/PAS stain with matched control is used in the evaluation of the specimen. The specimen predominantly consists of gastric mucosa. MICROSCOPIC DESCRIPTION Slides are reviewed. A. The specimen shows fragments of gastric mucosa with chronic inflammatory cell infiltrates in the lamina propria consisting of lymphocytes and plasma cells, consistent with mild chronic gastritis. GROSS DESCRIPTION A. Received in fixative is one container labeled with the patient's name and designated Gastric body biopsy. The specimen consists of two irregular fragments of light glasgow soft tissue that in aggregate measure 0.6 x 0.5 x 0.1 cm. The specimen is totally submitted in one cassette. B. Received in fixative is one container labeled with the patient's name and designated Distal esophagus biopsy. The specimen consists of two irregular fragments of light glasgow soft tissue that in aggregate measure 0.8 x 0.6 x 0.2 cm. The specimen is totally submitted in one cassette. 11/17/2024 TC:3 [facility]:[id number] Patient Age/Sex Location Account Attending Physician SUHA RIVAS 39/F EN [id number] Jamshid Escobedo, DO Signed (signature on file) Dr. Devon Good MD 11/18/24 1026 [facility] Comment on above: Performed By: #### P SUIV #### [facility] [address] [place], [address] NCS and/or EMG Patienton NCS and/or EMG Patient [facility] Pulmonary Services/Neurology [address] [place] [address] MR#: [id number] Acct: [id number] Name: SUHA RIVAS Rep #: [id number] : 1985 39 From: Gisela Wyatt MD Referring Dr: Nereyda Landry MD Status: REG CLI Location: [facility] Date: 11/02/24 Sex: F C NCS and/or EMG Patient Report Ordering Doctor: Mayela Alexandra DATE OF SERVICE: 11/02/24 Suha presents with numbness and tingling in both hands, worse on the left side. Electrodiagnostic findings: Left median motor nerve demonstrates borderline prolonged distal latency with normal amplitude and reduced conduction velocity. Right median motor nerve demonstrates normal distal latency and amplitude with reduced conduction velocity. Ulnar motor response is within normal limits bilaterally. Prolonged median sensory latency at the wrist bilaterally. Needle EMG testing was performed of the upper limbs. All muscles tested showed no evidence of denervation with normal motor unit action potentials. Electrodiagnostic impression: This is an abnormal study in the upper limbs. 1. Electrodiagnostic findings suggestive of bilateral median mononeuropathy. This consistent with a mild bilateral carpal tunnel syndrome. Multi Select Codes Neurology Neurology Interp Codes: 80891-60 Musc test done w/n test comp (interp) and 62732-12 Nrv cndj test 11-12 studies (interp) 11/02/24 1420 Date Gisela Wyatt MD CC: Dr. Gisela Wyatt MD; Nereyda Alexandra MD Date Dictated: 11/02/241417 Date Transcribed: 11/02/241417 Customs Opener Verifier Packer: AA Signed [facility] DEIRDRE SCREEN, IFA, W/REFL TITE R AND PATTERNon 09-27-2024 DEIRDRE SCREEN, IFA Negative Normal NEGATIVE [facility] Comment on above: Result Comment: DEIRDRE IFA is a first line screen for detecting the presence of up to approximately 150 autoantibodies in various autoimmune diseases. A negative DEIRDRE IFA result suggests an DEIRDRE-associated autoimmune disease is not present at this time, but is not definitive. If there is high clinical suspicion for Sjogren's syndrome, testing for anti-SS-A/Ro antibody should be considered. Anti-Alejandra-1 antibody should be considered for clinically suspected inflammatory myopathies. AC-0: Negative International Consensus on DEIRDRE Patterns (https://doi.org/10.1515/jjlj-0607-5067) For additional information, please refer to http://education.[employer]faq/PST636 (This link is being provided for informational/ educational purposes only.) Performed By: #### 9 05, 05572, 249, 807, 0488 #### [facility] [address], [address] [place] [id number] Superintendent Job: Juvenal Santos MD BASIC METABOLIC PANELon 12-3 BUN/CREATININE RATIO SEE NOTE: Normal 6-22 [facility] Comment on above: Result Comment: Not Reported: BUN and Creatinine are within reference range. Performed By: #### 9 05, 60706, 249, 809, 4418 #### [facility] [address], [address] [place] [address] Superintendent Job: Juvenal Santos MD Calcium [Mass/Vol] 9.0 mg/dL Normal 8.6-10.2 [facility] Comment on above: Performed By: #### 9 05, 57765, 249, 809, 4418 #### [facility] [place] [address] Superintendent Job: Juvenal Santos MD Chloride [Moles/Vol] 106 mmol/L Normal 98-110 [facility] Comment on above: Performed By: #### 9 05, 35473, 249, 809, 4418 #### [facility] [place] [address] Superintendent Job: Juvenal Santos MD CO2 [Moles/Vol] 24 mmol/L Normal 20-32 [facility] Comment on above: Performed By: #### 9 05, 60848, 249, 809, 4418 #### [facility] [place] [address] Superintendent Job: Juvenal Santos MD Creatinine [Mass/Vol] 0.82 mg/dL Normal 0.50-0.[address] [facility] [address] [facility] Comment on above: Performed By: #### 9 05, 25862, 249, 809, 4418 #### [facility] [place] [address] Superintendent Job: Juvenal Santos MD GFR/1.73 sq M.predicted among non-blacks MDRD (S/P/Bld) [Vol rate/Area] 94 mL/min/{1.73_m2} Normal > OR = 60 [facility] Comment on above: Performed By: #### 9 05, 71210, 249, 809, 4418 #### [facility] [place] [address] Superintendent Job: Juvenal Santos MD Glucose [Mass/Vol] 91 mg/dL Normal 65-139 [facility] Comment on above: Result Comment: Non-fasting reference interval Performed By: #### 9 05, 89575, 249, 809, 4418 #### [facility] [place] [address] Superintendent Job: Juvenal Santos MD Potassium [Moles/Vol] 3.8 mmol/L Normal 3.5-5.[address] [facility] [address] [facility] Comment on above: Performed By: #### 9 05, 05445, 249, 809, 4418 #### [facility] [place] [address] Superintendent Job: Juvenal Santos MD Sodium [Moles/Vol] 139 mmol/L Normal 135-146 [facility] Comment on above: Performed By: #### 9 05, 49976, 249, 809, 4418 #### [facility] [place] [address] Superintendent Job: Juvenal Santos MD Urea nitrogen [Mass/Vol] 13 mg/dL Normal 7-25 [facility] Comment on above: Performed By: #### 9 05, 94189, 249, 809, 4418 #### [facility] [place] [address] Superintendent Job: Juvenal Santos MD RHEUMATOID FACTORon 09-27-20 RHEUMATOID FACTOR <10 Normal <14 [facility] Comment on above: Performed By: #### 9 05, 85669, 249, 809, 4418 #### [facility] [place] [address] Superintendent Job: Juvenal Santos MD SED RATE BY MODIFIED WESTERG RENon 09-27-2024 SED RATE BY MODIFIED WESTERGREN 11 mm/h Normal < OR = 20 [facility] Comment on above: Performed By: #### 9 05, 37487, 249, 809, 4418 #### [facility] [address], [address] [place] [address] Superintendent Job: Juvenal Santos MD URIC ACIDon 09-27-2024 Urate [Mass/Vol] 4.2 mg/dL Normal 2.5-7.0 [facility] Comment on above: Order Comment: 0; 0; 0; 0; 0 FASTING:NO FASTING: NO Result Comment: Ther apeutic target for gout patients: <6.0 mg/dL Performed By: #### 9 05, 82624, 249, 809, 4418 #### [facility] [address] [facility], [address] [place] [address] Superintendent Job: Juvenal Santos MD Gastroenterology Visit Repor [facility] 09-06-2024 Gastroenterology Visit Report [facility] [address] [facility] [place] [address] OFFICE VISIT Date of Service: 09/06/24 MR#: [id number] Acct: [id number] Name: SUHA RIVAS Rep #: [id number] : 1985 Provider: Jamshid Escobedo DO Age/Sex: 39/F Location: [facility] Status: Signed Intake Vital Signs 12/16/22 08:26 08/06/24 21:36 Height 5 ft 8 in 5 ft 8 in Intake Visit Reasons: 6 M FU Chief Complaint: Abdominal pain Allergies bee pollen (Bee Pollen) Allergy (Severe, Verified 08/06/24 21:36) Anaphylaxis peanut Allergy (Severe, Verified 08/06/24 21:36) Anaphylaxis Medications ???Medication ???Instructions ???Recorded ???Confirmed ???Type Tylenol 500 mg PO/SL PRN PRN Pain 12/11/20 09/06/24 History epinephrine 0.3 mg/0.3 mL 0.3 mg IM Q4H PRN allergies 11/26/22 09/06/24 History injection, auto-injector (EpiPen) ondansetron HCl 4 mg tablet 4 mg PO Q8H PRN nausea and 06/16/23 09/06/24 Rx vomiting #45 tabs escitalopram oxalate 20 mg tablet 20 mg PO DAILY 10/23/23 09/06/24 History vancomycin 125 mg capsule 125 mg PO Q6H PRN 10/23/23 09/06/24 History dicyclomine 20 mg tablet 20 mg PO .COMPLEX #90 tabs 12/03/23 09/06/24 Rx esomeprazole magnesium 40 mg 40 mg PO QAM #90 caps 02/09/24 09/06/24 Rx capsule,delayed release colestipol 1 gram tablet 1 g PO HS #90 tabs 05/18/24 09/06/24 Rx bupropion HCl 300 mg 24 hr tablet, 300 mg PO QAM 09/06/24 09/06/24 History extended release (Wellbutrin XL) PFSH Medical History Low iron Easy bruising PONV (postoperative nausea and vomiting) Non-smoker Diarrhea Abdominal pain Depression Alcohol use Back pain Migraine headache History of hiatal hernia Gastric reflux History of edema Surgical History History of hysterectomy History of tubal ligation H/O dilation and curettage History of esophagogastroduodenosco py (EGD) Hx of colonoscopy Hx of surgical procedure Hx laparoscopic cholecystectomy Hx of wisdom tooth extraction Hx of tonsillectomy Family History Other Breast cancer Diabetes High cholesterol Hypertension Thyroid disorder Social History Smoking Status: Never smoker alcohol intake: current alcohol intake frequency: a few times a month Alcohol type: beer and wine substance use type: does not use HPI HPI Chief Complaint: Abdominal pain Details: SUHA RIVAS, is a 39 F who presents to the office today for follow up. PCP OV 06.12.22 with abd pain and loose stools noting some food triggers. *BGI established 09.19.22 with abdominal pain and loose stools that have been getting worse for the last 6-12 months; notes stress as a trigger. Heartburn has been a daily problem; esomeprazole somewhat helpful, stress is a trigger. Intermittent epigastric pain following cholecystectomy 2012. ? EGD and colonoscopy 12.01.22 EGD gastritis; duodenitis. No additional path changes. ? Colonoscopy congested colon; TI normal. No path changes. ? Stool calprotectin, EP, lactoferrin. ??? PCR+ C.difficile without toxin/antigens OV 12.16.22 Start colestipol 1-2 gram QD; continue dicyclomine PRN. Seeing PCP soon for discussion of anxiety treatment. OV 05.04.23 She did start Lexapro 20mg QD through PCP. She has noted some increased anxiety recently (has a trip coming up) and has caused increased upset stomach, cramping, alternating BM. Colestipol increased to 2gram QD and dicyclomine BID and Nexium 40mg QD (has attempted to stop Nexium but had increased stomach discomfort). Prior to increased anxiety she was feeling much better. BM occur daily but with incomplete evacuation and need to repeat BM approximately 15 minutes later, this was present prior to colestipol increase. Prior to starting colestipol she was having a lot of loose stools alternating with constipation. With colestipol she is no longer having foamy/bile diarrhea. Contact 06.16.23 with mild nausea with start of Semaglutide, reassured this is normal. Recently started on ATB therapy for sinuses and has had abnormal stools since the start of this. Start vancomycin. Contact, 08.26.23, portal with recent ATB use without preventative vancomycin; she has been having urgent loose stools. ? Stool lactoferrin, EP WNL C.Difficile PCR +, antigen/toxin negative OV 10.23.23 Nausea, bloating, heartburn after eating certain. During bowel movements will occasional experience sharp lower abdomen pain, sometimes worse on right side. Constipation and diarrhea. (more content not included)... [facility] M100.677on 08-07-2024 M1.7 Negative [facility] Comment on above: Performed By: #### M 100.677, M1.8 #### [facility] [address] [place], [address] M100.678on 08-07-2024 M100.8 Pending SARS-CoV-2 (COVID 19) Negative INFLUENZA A Negative INFLUENZA B Negative RSV PCR Negative [facility] Comment on above: Performed By: #### M 100.7, M18 #### [facility] [address] [place], [address] Chest PA and Lateralon 08-06 Chest PA and Lateral [facility] Imaging Services [address] [place] [address] Chest PA and Lateral MR#: [id number] Acct: [id number] Name: SUHA RIVAS Rep #: [id number] : 1985 F 39 From: Joe Falcon DO PCP: Nereyda Landry MD Status: [facility] ER Study: Chest PA and Lateral Date of Exam: 08/06/24 Exam# [id number] Ordering Dr: Henry Hutchins DO [id number] INDICATION: cough EXAMINATION/TECHNIQUE: X-RAY - XR Chest 2 Views COMPARISON: FINDINGS: LINES/DEVICES: None. LUNGS: No consolidation, edema or effusion. No pneumothorax. MEDIASTINUM AND CARDIOVASCULAR STRUCTURES: Cardiac silhouette not enlarged. Central airways and mediastinal contour are unremarkable. BONES AND SOFT TISSUES: Unremarkable. RAD/Chest PA and Lateral IMPRESSION: No radiographic evidence of acute cardiopulmonary disease. Electronically Signed: Joe Falcon DO at 22:59 EST , CC: Dr. Henry Hutchins DO; Nereyda Alexandra MD Customs Opener Verifier Packer: Signed [facility] Emergency Department Summary on 08-06-2024 Emergency Department Summary [facility] Medical Records Department [address] [place] [address] Emergency Department Summary 08/06/24 MR#: [id number] Acct: [id number] Name: SUHA RIVAS Rep #: [id number] : 1985 39 From: Henry Hutchins DO PCP: Nereyda Landry MD Status:REG ER Location: ED HPI History of Present Illness Chief Complaint: Cough Narrative Narrative: Patient is a 39-year-old female with past medical history of GERD, migraine headaches, depression who presented to the emergency department chief complaint of sore throat, cough. Patient states that on Thursday she became ill not feeling well. She states that she went to urgent care earlier today and noted that they were too busy and were unable to be seen therefore they came here for further evaluation management. Denies any fevers or chills. [facility] Medical History Low iron Easy bruising PONV (postoperative nausea and vomiting) Non-smoker Diarrhea Abdominal pain Depression Alcohol use Back pain Migraine headache History of hiatal hernia Gastric reflux History of edema Home Medications ???Medication ???Instructions ???Recorded ???Last Taken ???Type Tylenol 500 mg PO/SL PRN PRN Pain 12/11/20 11/30/22 History epinephrine 0.3 mg/0.3 mL 0.3 mg IM Q4H PRN allergies 11/26/22 11/30/22 History injection, auto-injector (EpiPen) ondansetron HCl 4 mg tablet 4 mg PO Q8H PRN nausea and 06/16/23 Unknown Rx vomiting #45 tabs aripiprazole 2 mg tablet 2 mg PO DAILY 10/23/23 Unknown History escitalopram oxalate 20 mg tablet 20 mg PO DAILY 10/23/23 Unknown History vancomycin 125 mg capsule 125 mg PO Q6H PRN 10/23/23 Unknown History dicyclomine 20 mg tablet 20 mg PO .COMPLEX #90 tabs 12/03/23 Unknown Rx esomeprazole magnesium 40 mg 40 mg PO QAM #90 caps 02/09/24 Unknown Rx capsule,delayed release colestipol 1 gram tablet 1 g PO HS #90 tabs 05/18/24 Unknown Rx tenapanor 50 mg tablet (Ibsrela) 50 mg PO BID #60 tabs 06/14/24 Unknown Rx Allergy/AdvReac Type Severity Reaction Status Date / Time bee pollen (Bee Pollen) Allergy Severe Anaphylaxis Verified 08/06/24 21:36 peanut Allergy Severe Anaphylaxis Verified 08/06/24 21:36 Family History Other Breast cancer Diabetes High cholesterol Hypertension Thyroid disorder Surgical History History of hysterectomy History of tubal ligation H/O dilation and curettage History of esophagogastroduodenosco py (EGD) Hx of colonoscopy Hx of surgical procedure Hx laparoscopic cholecystectomy Hx of wisdom tooth extraction Hx of tonsillectomy Social History Smoking Status: Never smoker alcohol intake: current alcohol intake frequency: a few times a month Alcohol type: beer and wine substance use type: does not use ROS ROS ED ROS Narrative Constitutional: Denies any fevers, chills, headaches, lightheadedness, dizziness Eyes: Denies change in vision double vision blurry vision Cardiovascular: Denies chest pain or palpitations Respiratory: Complains of cough as noted above denies any shortness of breath or wheezing Abdomen: Denies abdominal pain nausea vomit diarrhea : Denies any urinary symptoms Neurological: Denies any numbness, weakness, tingling Musculoskeletal: Denies back pain Skin: Denies rashes or lesions EXAM Physical Exam Narrative Exam Narrative: General: Patient lying in bed rest comfortably did not appear to be in any acute distress Head: Atraumatic, normocephalic Eyes: PERRL bilateral, EOMI bilateral, no conjunctival injection noted Neck: Soft, supple, trach midline Cardiovascular: Regular rate and rhythm no murmurs gallops rubs noted Respiratory: Clear to auscultation bilaterally no rales rhonchi or wheezes noted Abdomen: Soft, nondistended, nontender to palpation, bowel sounds present x 4 Extremities: +5/5 strength noted in the bilateral upper and lower extremities Neurological: Patient follow commands knew that she was at [facility] years 2023 Skin: Warm, dry, intact no rashes or lesions noted Const Vital Signs: 08/06/24 21:36 08/06/24 21:42 Temperature 98 F Temperature Source Oral Pulse Rate 85 Respiratory Rate 18 Respiratory Effort Normal Non-Labored Respiratory Depth Normal Respiratory Pattern Normal Blood Pressure 139/86 H Blood Pressure Mean 103 Pulse Ox 96 Oxygen Delivery Method Room Air Room Air MDM MDM MDM Narrative Medical decision making narrative: Patient is a 39-year-old female who presented to the emergency department the chief complaint of cough, sore throat. Patient will have a workup performed here on (more content not included)... [facility] COVID-19 virus antigen assay Ordered By: Ryley Olmedo on 10-03-2023 SARS-CoV-2 (COVID-19) Ag IA.rapid Ql (Resp) [facility] SARS-CoV-2 (COVID-19) Ag IA.rapid Ql (Resp) [facility] Erythrocyte sedimentation ra marianela 07-12-2023 ESR (Bld) [Velocity] 3 mm/h 0-30 [facility] Mitotic spindle apparatus Ab [Titer] in Serum or Plasmaon 07-12-2023 Mitotic spindle apparatus Ab [Titer] Not Reportable [facility] No Panel Informationon 07-12 DEIRDRE Nuclear Membrane Pattern Not Reportable [facility] Serum midbody antibody titer by immunofluorescenceon 07-12-2023 Midbody Ab IF (S) [Titer] Not Reportable [facility] Serum multiple nuclear dot p attern antinuclear IgG antibody (DEIRDRE) titer by immunofluoon 07-12-2023 Multiple nuclear dots nuclear IgG pattern IF (S) [Titer] Not Reportable [facility] Serum neuronal nuclear antib luiza detection by immunofluorescenceon 07-12-2023 Neuronal nuclear Ab IF Ql (S) Not Reportable [facility] Serum nuclear antibody patte rn homogenous titer by immunofluorescenceon 07-12-2023 Homogenous nuclear Ab pattern IF (S) [Titer] Not Reportable [facility] Serum nuclear antibody titer by immunofluorescenceon 07-12-2023 Nuclear Ab IF (S) [Titer] Negative . [facility] Comment on above: Negative <1:80 Bormaddoxine 1:80 Positive >1:80ICAP nomenclature: AC-0For more information about Hep-2 cell patterns useANApatterns.org, the official website for theInternational Consensus on Antinuclear Antibody (DEIRDRE)Patterns (ICAP).Performed at: [facility] [place] [id number] Director: Vasu Sahu PhD, Phone: [phone] Serum or plasma uric acid me asurement (mass/volume)on 07-12-2023 Urate [Mass/Vol] 3.9 mg/dL 2.6-6.0 [facility] Comment on above: The drugs N-Acetylcy steine and Metamizole may falsely depress this assay. Serum proliferating cell nuc lear antigen (PCNA) antibody titer by immunofluorescenceon 07-12-2023 PCNA extractable nuclear Ab IF (S) [Titer] Not Reportable [facility] Serum rheumatoid factor dete ctionon 07-12-2023 Rheumatoid factor Ql (S) < 10.0 IU/mL <15 [facility] Serum speckled nuclear antib luiza pattern titeron 07-12-2023 Speckled nuclear Ab pattern (S) [Titer] Not Reportable [facility] Thin prep Papanicolaou smear with manual screeningon 07-12-2023 Thin prep Papanicolaou smear with manual screening Not Reportable [facility] COVID-19 virus antigen assay Ordered By: Ryley Olmedo on 06-14-2023 SARS-CoV-2 (COVID-19) Ag IA.rapid Ql (Resp) [facility] Absolute lymphocyte counton 06-13-2023 Lymphocytes Auto (Unsp spec) [#/Vol] 2.09 10*3/uL 0.83-4.51 [facility] Basophil percentageon 2022 Basophils/100 WBC (Bld) 0.7 % 0-1 [facility] Bilirubin [Mass/Vol] 0.50 mg/dL 0.20-1.[address] [facility] Comment on above: For patients on eltr ombopag therapy, use of Dimension [place] TBIL is not recommended. Chloride [Moles/Vol] 109 mmol/L 98-107 [facility] Cholesterol [Mass/Vol] 138 mg/dL <[address] [facility] Comment on above: <200 mg/dL Desirable 200-240 mg/dL Borderline >240 mg/dL High Risk Eosinophils/100 WBC (Bld) 4.3 % 0-5 [facility] Glucose [Mass/Vol] 94 mg/dL 74-106 [facility] Neutrophils (Bld) [#/Vol] 4.5 10*3/uL 2.0-7.7 [facility] Neutrophils/100 WBC (Bld) 59.5 % 47-70 [facility] Potassium [Moles/Vol] 3.7 mmol/L 3.5-5.1 [facility] Protein [Mass/Vol] 7.1 g/dL 6.4-8.2 [facility] Sodium [Moles/Vol] 139 mmol/L 136-145 [facility] Triglyceride [Mass/Vol] 118 mg/dL <199 [facility] Comment on above: The drugs N-Acetylcy steine and Metamizole may falsely depress this assay.Serum Triglycerides Reference Interval Normal <150 mg/dL Borderline high 150 - 199 mg/dL High 200 - 499 mg/dL Very High > or = 500 mg/dL WBC (Bld) [#/Vol] 7.6 10*3/uL 4.4-11.0 [facility] Blood erythrocytes count (nu mber/volume)on 06-13-2023 RBC (Bld) [#/Vol] 4.61 10*6/uL 4.2-5.4 [facility] Blood hemoglobin measurement (mass/volume)on 06-13-2023 Hemoglobin (Bld) [Mass/Vol] 13.6 g/dL 12.0-15.0 [facility] Blood lymphocytes/100 leukoc yteson 06-13-2023 Lymphocytes/100 WBC (Bld) 27.5 % 19-41 [facility] Blood monocytes/100 leukocyt eson 06-13-2023 Monocytes/100 WBC (Bld) 7.6 % 0-10 [facility] Blood platelet mean volumeon 06-13-2023 Platelet mean volume (Bld) [Entitic vol] 10.8 fL 6.2-12.0 [facility] Determination of erythrocyte mean corpuscular volume (MCV)on 06-13-2023 MCV (RBC) [Entitic vol] 92.4 fL 81-99 [facility] Hematocrit Auto (Bld) [Volum e fraction]on 06-13-2023 Hematocrit (Bld) [Volume fraction] 42.6 % 37-47 [facility] - Chemistry and C hemistry - challengeon 06-13-2023 ALP [Catalytic activity/Vol] 78 U/L 45-117 [facility] ALT [Catalytic activity/Vol] 22 U/L 13-56 [facility] CO2 [Moles/Vol] 25.0 mmol/L 21.0-32.0 [facility] Globulin (S) [Mass/Vol] 3.5 g/dL 2.2-4.2 [facility] Urea nitrogen/Creatinine [Mass ratio] 11.6 mg/mg 10-20 [facility] - Hematology and Cell countson 06-13-2023 Erythrocyte distribution width (RBC) [Entitic vol] 39.8 fL 35.1-43.9 [facility] Erythrocyte distribution width (RBC) [Ratio] 11.8 % 11.6-14.6 [facility] Immature granulocytes/100 WBC (Bld) 0.400 % 0.0-0.9 [facility] Comment on above: IG% - Immature Granu locytes (promyelocytes, myelocytes and metamyelocytes) > 1% indicates that a LEFT SHIFT is Present. MCH (RBC) [Entitic mass] 29.5 pg 27.0-32.0 [facility] Nucleated RBC/100 WBC (Bld) [Ratio] 0 % 0-5 [facility] MCHC Auto (RBC) [Mass/Vol]on 06-13-2023 MCHC (RBC) [Mass/Vol] 31.9 g/dL 32-36 [facility] No Panel Informationon 06-13 Estimated GFR (MDRD) Amer 95 mL/min >60 [facility] Comment on above: GFR Calc Estimated GFR (MDRD) Non-Af Amer 79 mL/min >60 [facility] Comment on above: Non- GFR Calc Thyroid Stimulating Hormone (TSH) 2.55 uIU/mL 0.358-3.74 [facility] Platelets bldon 06-13-2023 Platelets (Bld) [#/Vol] 269 10*3/uL 150-450 [facility] Serum or plasma albumin terese urement (mass/volume)on 06-13-2023 Albumin [Mass/Vol] 3.6 g/dL 3.2-5.0 [facility] Serum or plasma albumin/glob ulin mass ratioon 06-13-2023 Albumin/Globulin [Mass ratio] 1.0 {ratio} 0.9-2.4 [facility] Serum or plasma calcium terese urement (mass/volume)on 06-13-2023 Calcium [Mass/Vol] 8.3 mg/dL 8.5-10.1 [facility] Serum or plasma cholesterol in HDL measurement (mass/volume)on 06-13-2023 Cholesterol in HDL [Mass/Vol] 39 mg/dL >40 [facility] Comment on above: The drugs N-Acetylcy steine and Metamizole may falsely depress this assay. Reference Range HDL <40 mg/dL Low HDL Cholesterol HDL >or= 60 mg/dL High HDL Cholesterol Serum or plasma cholesterol in VLDL measurement (mass/volume)on 06-13-2023 Cholesterol in VLDL [Mass/Vol] 24 mg/dL 5-40 [facility] Serum or plasma creatinine m easurement (mass/volume)on 06-13-2023 Creatinine [Mass/Vol] 0.86 mg/dL 0.55-1.02 [facility] Comment on above: The validity of the calculated GFR & GFRAA in patients over 70 years has not been determined. Clinical correlation is essential. Serum or plasma low density lipoprotein (LDL) cholesterol measurement (mass/volume)on 06-13-2023 Cholesterol in LDL [Mass/Vol] 75 mg/dL 0-130 [facility] Serum or plasma urea nitroge n measurement (mass/volume)on 06-13-2023 Urea nitrogen [Mass/Vol] 10 mg/dL 7-18 [facility] Thin prep Papanicolaou smear with manual screeningon 06-13-2023 Thin prep Papanicolaou smear with manual screening 13 U/L 15-37 [facility] Thin prep Papanicolaou smear with manual screening 5 5-15 [facility] Clostridium difficile detect ion by polymerase chain reactionOrdered By: Guera Bingham on 09-23-2022 C. difficile DNA FILIPPO+probe Ql (Unsp spec) [facility] EP PanelOrdered By: Guera Bingham on 09-23-2022 Gastrointestinal pathogens panel FILIPPO+probe (Stl) [facility] No Panel InformationOrdered By: Guera Bingham on 09-23-2022 Stool Calprotectin <16 ug/g 0-120 [facility] Comment on above: Concentration Interp retation Follow-Up<16 - 50 ug/g Normal None>50 -120 ug/g Borderline Re-evaluate in 4-6 weeks >120 ug/g Abnormal Repeat as clinically indicatedPerformed at: [facility] [id number] Director: Sarah Segal MD, Phone: [phone] Stool Clostridium difficile detectionOrdered By: Guera Bingham on 09-23-2022 C. difficile Ql (Stl) [facility] Stool lactoferrin detection by immunoassayOrdered By: Guera Bingham on 09-23-2022 Lactoferrin IA Ql (Stl) [facility] Absolute lymphocyte countOrd ered By: Guera Bingham on 09-19-2022 Lymphocytes Auto (Unsp spec) [#/Vol] 1.97 10*3/uL 0.83-4.51 [facility] Albumin Elph [Mass/Vol]Order ed By: Guera Bingham on 09-19-2022 Albumin [Mass/Vol] 3.6 g/dL 2.9-4.4 [facility] Atypical perinuclear antineu trophil cytoplasmic antibodies measurementOrdered By: Guera Bingham on 09-19-2022 Neutrophil cytoplasmic Ab.perinuclear.atypical IF (S) [Titer] <1:20 titer Neg:<1:20 [facility] Comment on above: The atypical pANCA p attern has been observed in asignificant percentage of patients with ulcerative colitis,primary sclerosing cholangitis and autoimmune hepatitis.Performed at: [employer] [id number] Director: Vasu Sahu PhD, Phone: [phone] at: [address] [id number] Director: Sarah Segal MD, Phone: [phone] Basophil percentageOrdered B y: Guera Bingham on 09-19-2022 Basophil percentage < 0.2 AI 0.0-0.9 [facility] Basophils/100 WBC (Bld) 0.5 % 0-1 [facility] Bilirubin [Mass/Vol] 0.40 mg/dL 0.20-1.00 [facility] Comment on above: For patients on eltr ombopag therapy, use of Dimension [place] TBIL is not recommended. Chloride [Moles/Vol] 111 mmol/L 98-107 [facility] Eosinophils/100 WBC (Bld) 2.7 % 0-5 [facility] Glucose [Mass/Vol] 95 mg/dL 74-106 [facility] Neutrophils (Bld) [#/Vol] 3.4 10*3/uL 2.0-7.7 [facility] Neutrophils/100 WBC (Bld) 56.8 % 47-70 [facility] Potassium [Moles/Vol] 3.6 mmol/L 3.5-5.1 [facility] Protein [Mass/Vol] 7.1 g/dL 6.4-8.2 [facility] Sodium [Moles/Vol] 141 mmol/L 136-145 [facility] WBC (Bld) [#/Vol] 6.0 10*3/uL 4.4-11.0 [facility] Blood erythrocytes count (nu mber/volume)Ordered By: Guera Bingham on 09-19-2022 RBC (Bld) [#/Vol] 4.26 10*6/uL 4.2-5.4 [facility] Blood hemoglobin measurement (mass/volume)Ordered By: Guera Bingham on 09-19-2022 Hemoglobin (Bld) [Mass/Vol] 12.9 g/dL 12.0-15.0 [facility] Blood lymphocytes/100 leukoc ytesOrdered By: Guera Bingham on 09-19-2022 Lymphocytes/100 WBC (Bld) 32.7 % 19-41 [facility] Blood monocytes/100 leukocyt esOrdered By: Guera Bingham on 09-19-2022 Monocytes/100 WBC (Bld) 7.1 % 0-10 [facility] Blood platelet mean volumeOr dered By: Guera Bingham on 09-19-2022 Platelet mean volume (Bld) [Entitic vol] 10.4 fL 6.2-12.0 [facility] Determination of erythrocyte mean corpuscular volume (MCV)Ordered By: Guera Bingham on 09-19-2022 MCV (RBC) [Entitic vol] 92.0 fL 81-99 [facility] Erythrocyte sedimentation ra teOrdered By: Guera Bingham on 09-19-2022 ESR (Bld) [Velocity] 15 mm/h 0-30 [facility] Hematocrit Auto (Bld) [Volum e fraction]Ordered By: Guera Bingham on 09-19-2022 Hematocrit (Bld) [Volume fraction] 39.2 % 37-47 [facility] Interpretation of serum or p lasma protein pattern by immunofixation (narrative resultOrdered By: Guera Bingham on 09-19-2022 Protein Fractions Immunofixation Raul [Interp] See comment [facility] Comment on above: Result: Not Observed Laboratory - Chemistry and C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 Therapist That Will Oversee The Plan Of Care: Aurelio Jain Start of Care Date: 08/26/18 Onset Date: 03/28/17 Patient Identified by Name and Date of : Yes REHABILITATION AND SPORTS THERAPY PHYSICAL THERAPY DISCONTINUANCE OF CARE PLAN OF CARE UPDATE: Assessment: Suha Rivas is discontinued from Physical Therapy services due to goal achievement.. Patient was seen for 7 visits from Start of Care Date: 08/26/18 to 11/18/2018 and treatment included: Therapeutic exercise, Neuromuscular re-education, Manual therapy, Therapeutic activities, Self-correction management, Body mechanics training and Functional training. [...] and return back to baseline Functional Limitations: standing;sitting;walking Prior Level of Function: Independent without limitations [...] education as noted. Billing: Thomas: Therapeutic Exercise ([id number]): 1:1 time: 40 minutes (3 units: 38-52 mins) Total time: 45 minutes Ebenezer Waite, SPT I attest that I was present, not working on other tasks and directing this student during the entirety of this visit. Aurelio Jain PT [facility] CNTHERAPYon 11-04-2018 CNTHERAPY OT/PT/Speech Visit (AKPTB) -------- SUHA RIVAS ([id number]) 1985 F Date Time Provider Department 11/04/18 7:00 AM AURELIO JAIN (PT) AKPTB Date Time Provider Department [place] 11/04/2018 7:00 AM [id number], PHILIP (PT) AKPTB [facility] Reason for Visit: Physical Therapy [503] Primary [...] NUVARING 0.12 MG -0.015 MG/24* Progress Notes: Aurelio Jain, PT, PT 11/04/2018 10:12 AM Signed Episode Visit Count: 6 Therapist That Will Oversee The Plan Of Care: Aurelio Jain Start of Care Date: 08/26/18 Onset Date: 03/28/17 Patient Identified by Name and Date of : Yes REHABILITATION AND SPORTS THERAPY PHYSICAL THERAPY TREATMENT NOTE ASSESSMENT: Suha Rivas demonstrated difficulty towards the end of [...] Planned Treatment Interventions: Therapeutic exercise;Neuromuscular re-education;Manual therapy;Gait Training;Patient/Family/ Caregiver Education PLAN FOR NEXT VISIT: continue with [...] 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 Billing: Thomas: Therapeutic Exercise ([id number]): 1:1 time: 41 minutes (3 units: 38-52 mins) Total time: 45 minutes Ebenezer Waite, SPT I attest that I was present, not working on other tasks and directing this student during the entirety of this visit. Aurelio Jain PT Previous Version -------- Normal [facility] PROGRESSon 11-04-2018 Protein mass conc HNO ID: [id number] Author: Aurelio (Pt) JORDAN Jain Service: (none) Author Type: Physical Therapist Type: Progress Notes Filed: 11/04/2018 10:12 AM Note Text: Episode Visit Count: 6 Therapist That Will Oversee The Plan Of Care: Aurelio Jain Start of Care Date: 08/26/18 Onset Date: 03/28/17 Patient Identified by Name and Date of : Yes REHABILITATION AND SPORTS THERAPY PHYSICAL THERAPY TREATMENT NOTE ASSESSMENT: Suha Rivas demonstrated difficulty towards the end of [...] Planned Treatment Interventions: Therapeutic exercise;Neuromuscular re-education;Manual therapy;Gait Training;Patient/Family/ Caregiver Education PLAN FOR NEXT VISIT: continue with [...] 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 Billing: Thomas: Therapeutic Exercise (65893): 1:1 time: 41 minutes (3 units: 38-52 mins) Total time: 45 minutes Ebenezer Waite, SPT I attest that I was present, not working on other tasks and directing this student during the entirety of this visit. Aurelio Jain, PT [facility] CNTHERAPYon 10-22-2018 CNTHERAPY OT/PT/Speech Visit (AKPTB) -------- SUHA RIVAS ([id number]) 1985 F Date Time Provider Department 10/22/18 7:45 AM AURELIO JAIN (PT) AKPTB Date Time Provider Department Center 10/22/2018 7:45 AM [id number], PHILIP (PT) AKPTB [facility] Reason for Visit: Physical Therapy [503] Primary Visit Diagnosis:Chronic bilateral low back pain without sciatica [M54.5, G89.29] Allergies As of Date: 10/22/2018 Noted Allergy Reaction BEES 01/14/2013 10 - Anaphylaxis PEANUTS 01/14/2013 10 - Anaphylaxis Date Reviewed: 11/28/2013 Reviewed by: Erica Gallo) Ramonita - Fully Assessed Prescriptions as of 10/22/2018 Sig: PANTOPRAZOLE 40 MG TABLET,DEL* Take 1 tablet by mouth once d* PROBIOTIC COLON CARE ORAL Take by mouth. ZYRTEC-D ORAL Take by mouth. CLARITIN ORAL Take by mouth. MOTRIN ORAL Take by mouth as needed. NUVARING 0.12 MG -0.015 MG/24* Progress Notes: Aurelio Jain, PT, PT 10/22/2018 8:29 AM Signed Episode Visit Count: 5 Therapist That Will Oversee The Plan Of Care: Aurelio Jain Start of Care Date: 08/26/18 Onset Date: 03/28/17 REHABILITATION AND SPORTS THERAPY PHYSICAL THERAPY TREATMENT NOTE ASSESSMENT: Suha Rivas demonstrated improvements in exercise tolerance but [...] response to intervention. Billing: Thomas: Therapeutic Exercise (21416): 1:1 time: 30 minutes (2 units: 23-37 mins) Manual Therapy (08876): 1:1 time: 10 minutes (1 unit: 8-22 mins) Total time: 40 minutes Aurelio Jain PT This encounter was completed in collaboration with licensed orthopaedic physical therapy fellow in training, Dr. Ed Dalal, PT. He was active in the care of this patient, either in full or partial. I was present during this encounter, providing mentorship and either full or partial treatment. Aurelio Jain PT -------- [facility] PROGRESSon 10-22-2018 Protein mass conc HNO ID: [id number] Author: Aurelio (Pt) JORDAN Jain Service: (none) Author Type: Physical Therapist Type: Progress Notes Filed: 10/22/2018 8:29 AM Note Text: Episode Visit Count: 5 Therapist That Will Oversee The Plan Of Care: Aurelio Jain Start of Care Date: 08/26/18 Onset Date: 03/28/17 REHABILITATION AND SPORTS THERAPY PHYSICAL THERAPY TREATMENT NOTE ASSESSMENT: Suha Rivas demonstrated improvements in exercise tolerance but [...] assessment of patient's response to intervention. Billing: [place]: Therapeutic Exercise ([id number]): 1:1 time: 30 minutes (2 units: 23-37 mins) Manual Therapy (33647): 1:1 time: 10 minutes (1 unit: 8-22 mins) Total time: 40 minutes Aurelio Jain PT This encounter was completed in collaboration with licensed orthopaedic physical therapy fellow in training, Dr. Ed Dalal, PT. He was active in the care of this patient, either in full or partial. I was present during this encounter, providing mentorship and either full or partial treatment. Aurelio Jain PT [facility] CNTHERAPYon 10-07-2018 CNTHERAPY OT/PT/Speech Visit (AKPTB) -------- SUHA RIVAS ([id number]) 1985 F Date Time Provider Department 10/07/18 10:45 AM AURELIO JAINPT) AKPTHarris Date Time Provider Department Center 10/07/2018 10:45 AM [id number], PHILIP (PT) SADEPTB [facility] Reason for Visit: Physical Therapy [503] Primary [...] NUVARING 0.12 MG -0.015 MG/24* Progress Notes: Aurelio Jain, PT, PT 10/07/2018 12:56 PM Signed Episode Visit Count: 4 Therapist That Will Oversee The Plan Of Care: Aurelio Jain Start of Care Date: 08/26/18 Onset Date: 03/28/17 REHABILITATION AND SPORTS THERAPY PHYSICAL THERAPY TREATMENT NOTE ASSESSMENT: Suha Rivas demonstrated improvements in pain reduction when [...] response to intervention. Billing: Thomas: Therapeutic Exercise ([id number]): 1:1 time: 32 minutes (2 units: 23-37 mins) Manual Therapy (64223): 1:1 time: 12 minutes (1 unit: 8-22 mins) Total time: 44 minutes Aurelio Jain PT This encounter was completed in collaboration with licensed orthopaedic physical anthropologist Dustin Dooley PT. He was active in the care of this patient, either in full or partial. I was present during this encounter, providing mentorship and either full or partial treatment. Aurelio Jain PT -------- [facility] PROGRESSon 10-07-2018 Protein mass conc HNO ID: [id number] Author: Aurelio (Pt) JORDAN Jain Service: (none) Author Type: Physical Therapist Type: Progress Notes Filed: 10/07/2018 12:56 PM Note Text: Episode Visit Count: 4 Therapist That Will Oversee The Plan Of Care: Aurelio Jain Start of Care Date: 08/26/18 Onset Date: 03/28/17 REHABILITATION AND SPORTS THERAPY PHYSICAL THERAPY TREATMENT NOTE ASSESSMENT: Suha Rivas demonstrated improvements in pain reduction when [...] response to intervention. Billing: Thomas: Therapeutic Exercise ([id number]): 1:1 time: 32 minutes (2 units: 23-37 mins) Manual Therapy ([id number]): 1:1 time: 12 minutes (1 unit: 8-22 mins) Total time: 44 minutes Aurelio Jain PT This encounter was completed in collaboration with licensed orthopaedic physical anthropologist Dustin Dooley PT. He was active in the care of this patient, either in full or partial. I was present during this encounter, providing mentorship and either full or partial treatment. Aurelio Jain PT [facility] CNTHERAPYon 09-23-2018 CNTHERAPY OT/PT/Speech Visit (AKPTB) -------- SUHA RIVAS ([id number]) 1985 F Date Time Provider Department 09/23/18 7:00 AM AURELIO JAIN (PT) [place] Date Time Provider Department Center 09/23/2018 7:00 AM [id number], PHILIP (PT) SADEPTB [facility] Reason for Visit: PT Progress Note [7516] Primary Visit Diagnosis:Chronic bilateral low back pain [...] tablet by mouth once d* Progress Notes: Aurelio Jain, PT, PT 09/23/2018 7:49 AM Signed Episode Visit Count: 3 Therapist That Will Oversee The Plan Of Care: Aurelio Jain Start of Care Date: 08/26/18 Onset Date: 03/28/17 REHABILITATION AND SPORTS THERAPY PHYSICAL THERAPY PROGRESS REPORT PLAN OF CARE UPDATE: Assessment: Suha Rivas exhibits difficulty with prolonged standing and [...] be seen for Therapeutic exercise;Neuromuscular re-education;Manual therapy;Gait Training;Patient/Family/ Caregiver Education PLAN FOR NEXT VISIT: Continue to [...] response to intervention. Billing: Thomas: Therapeutic Exercise ([id number]): 1:1 time: 20 minutes (1 unit: 8-22 mins) Manual Therapy (39452): 1:1 time: 10 minutes (1 unit: 8-22 mins) Total time: 30 minutes Aurelio Jain PT -------- [facility] PROGRESSon 09-23-2018 Protein mass conc HNO ID: [id number] Author: Aurelio (Pt) JORDAN Jain Service: (none) Author Type: Physical Therapist Type: Progress Notes Filed: 09/23/2018 7:49 AM Note Text: Episode Visit Count: 3 Therapist That Will Oversee The Plan Of Care: Aurelio Jain Start of Care Date: 08/26/18 Onset Date: 03/28/17 REHABILITATION AND SPORTS THERAPY PHYSICAL THERAPY PROGRESS REPORT PLAN OF CARE UPDATE: Assessment: Suha Rivas exhibits difficulty with prolonged standing and [...] be seen for Therapeutic exercise;Neuromuscular re-education;Manual therapy;Gait Training;Patient/Family/ Caregiver Education PLAN FOR NEXT VISIT: Continue to [...] response to intervention. Billing: Thomas: Therapeutic Exercise (23788): 1:1 time: 20 minutes (1 unit: 8-22 mins) Manual Therapy (15868): 1:1 time: 10 minutes (1 unit: 8-22 mins) Total time: 30 minutes Aurelio Jain PT [facility] CNTHERAPYon 09-01-2018 CNTHERAPY OT/PT/Speech Visit (AKPTB) -------- SUHA RIVAS ([id number]) 1985 F Date Time Provider Department 09/01/18 7:00 AM AURELIO JAIN (PT) [place] Date Time Provider Department Center 09/01/2018 7:00 AM [id number], PHILIP (PT) AKJORDANB [facility] Reason for Visit: Physical Therapy [503] Primary [...] NUVARING 0.12 MG -0.015 MG/24* Progress Notes: Aurelio Jain, PT, PT 09/01/2018 7:44 AM Signed Episode Visit Count: 2 Therapist That Will Oversee The Plan Of Care: Aurelio Jain Start of Care Date: 08/26/18 Onset Date: 03/28/17 REHABILITATION AND SPORTS THERAPY PHYSICAL THERAPY TREATMENT NOTE ASSESSMENT: Suhaamy Rivas demonstrated some motor control issues while [...] provided in selection of appropriate interventions. Billing: [place]: Therapeutic Exercise ([id number]): 1:1 time: 32 minutes (2 units: 23-37 mins) Total time: 32 minutes Aurelio Jain PT -------- [facility] PROGRESSon 09-01-2018 Protein mass conc HNO ID: [id number] Author: Aurelio (Pt) JORDAN Jain Service: (none) Author Type: Physical Therapist Type: Progress Notes Filed: 09/01/2018 7:44 AM Note Text: Episode Visit Count: 2 Therapist That Will Oversee The Plan Of Care: Aurelio Jain Start of Care Date: 08/26/18 Onset Date: 03/28/17 REHABILITATION AND SPORTS THERAPY PHYSICAL THERAPY TREATMENT NOTE ASSESSMENT: Suha Rivas demonstrated some motor control issues while [...] of appropriate interventions. Billing: Thomas: Therapeutic Exercise ([id number]): 1:1 time: 32 minutes (2 units: 23-37 mins) Total time: 32 minutes Aurelio Jain PT [facility] CNTHERAPYon 08-26-2018 CNTHERAPY OT/PT/Speech Visit (AKPTB) -------- SUHA RIVAS ([id number]) 1985 F Date Time Provider Department 08/26/18 9:00 AM AURELIO JAIN (PT) AKPTB Date Time Provider Department Center 08/26/2018 9:00 AM [id number], PHILIP (PT) AKPTB [facility] Reason for Visit: PT Eval [887] Primary Visit Diagnosis:Chronic bilateral low back pain [...] NUVARING 0.12 MG -0.015 MG/24* Progress Notes: Aurelio Jain PT, PT 08/26/2018 1:22 PM Signed Episode Visit Count: 1 Therapist That Will Oversee The Plan Of Care: Aurelio Jain Start of Care Date: 08/26/18 Onset Date: 03/28/17 Patient Identified by Name and Date of : Yes REHABILITATION AND SPORTS THERAPY PHYSICAL THERAPY EVALUATION PLAN OF CARE: Assessment: Suha Rivas presents with the chief complaint of [...] discussed and agreed upon by patient/family. 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 again and return back to baseline Functional Limitations: standing;sitting;walking Prior Level of Function: Independent without limitations [...] (Gaenslen's): Left Negative Education: Education Learning Preferences: Explanation;Demonstratio n Barriers: None Learning/educational needs: Home exercise program;Plan of Care Education Provided: Yes, see treatment interventions for education provided Education Provided To: Patient Education Mode/Type: Demonstration;Explanatio n/Discussion Response to Education/Teach Back: States/Identifies;Return Demonstration TREATMENT: Evaluation Therapeutic Exercise: 1: Trans Abd in hooklying 10x 2: Trans abd in SL 3 x 10 Skilled Intervention: Skilled judgment was provided in selection of appropriate interventions. Billing: Thomas: Evaluation - Low Complexity ([id number]) Therapeutic Exercise ([id number]): 1:1 time: 10 minutes (1 unit: 8-22 mins) Total time: 45 minutes Aurelio Jain PT -------- [facility] PROGRESSon 08-26-2018 Protein mass conc HNO ID: [id number] Author: Aurelio (Pt) JORDAN Jain Service: (none) Author Type: Physical Therapist Type: Progress Notes Filed: 08/26/2018 1:22 PM Note Text: Episode Visit Count: 1 Therapist That Will Oversee The Plan Of Care: Aurelio Jain Start of Care Date: 08/26/18 Onset Date: 03/28/17 Patient Identified by Name and Date of : Yes REHABILITATION AND SPORTS THERAPY PHYSICAL THERAPY EVALUATION PLAN OF CARE: Assessment: Suha Rivas presents with the chief complaint of [...] discussed and agreed upon by patient/family. 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 again and return back to baseline Functional Limitations: standing;sitting;walking Prior Level of Function: Independent without limitations [...] (Gaenslen's): Left Negative Education: Education Learning Preferences: Explanation;Demonstratio n Barriers: None Learning/educational needs: Home exercise program;Plan of Care Education Provided: Yes, see treatment interventions for education provided Education Provided To: Patient Education Mode/Type: Demonstration;Explanatio n/Discussion Response to Education/Teach Back: States/Identifies;Return Demonstration TREATMENT: Evaluation Therapeutic Exercise: 1: Trans Abd in hooklying 10x 2: Trans abd in SL 3 x 10 Skilled Intervention: Skilled judgment was provided in selection of appropriate interventions. Billing: [place]: Evaluation - Low Complexity (57849) Therapeutic Exercise (65796): 1:1 time: 10 minutes (1 unit: 8-22 mins) Total time: 45 minutes Aurelio Jain PT [facility] .Auto Diffon 08-04-2018 Ammonia (P) [Mass/Vol] 0.30 10 3/mcL Normal 0.15-1.00 [facility] ([place]) Comment on above: Performed By: #### C SAJI DOMINGUEZ ANEU #### [address] [address] #### TROP, GFR, CMP #### [address] [address] Basophils (Bld) [#/Vol] 0.00 10 3/mcL Normal 0.00-0.19 [facility] ([place]) Comment on above: Performed By: #### C SAJI DOMINGUEZ ANEU #### [address] [address] #### TROP, GFR, CMP #### [address] [address] Basophils/100 WBC (Bld) 0.7 % Normal 0.0-2.5 [facility] ([place]) Comment on above: Performed By: #### C BC, ADIFF, ANEU #### [address] [address] #### TROP, GFR, CMP #### [address] [address] Eosinophils (Bld) [#/Vol] 0.10 10 3/mcL Normal 0.00-0.40 [facility] ([place]) Comment on above: Performed By: #### C BC, ADIFF, ANEU #### [address] [address] #### TROP, GFR, CMP #### [address] [address] Eosinophils/100 WBC (Bld) 3.3 % Normal 0.0-7.0 [facility] ([place]) Comment on above: Performed By: #### C BC, ADIFF, ANEU #### [address] [address] #### TROP, GFR, CMP #### [address] [address] Lymphocytes (Bld) [#/Vol] 1.80 10 3/mcL Normal 0.77-3.85 [facility] ([place]) Comment on above: Performed By: #### C BC, ADIFF, ANEU #### [address] [address] #### TROP, GFR, CMP #### [address] [address] Lymphocytes/100 WBC (Bld) 44.3 % Normal 10.0-50.0 [facility] ([place]) Comment on above: Performed By: #### C BC, ADIFF, ANEU #### [address] [address] #### TROP, GFR, CMP #### [address] [address] Monocytes/100 WBC (Bld) 8.3 % Normal 1.7-13.0 [facility] ([place]) Comment on above: Performed By: #### C BC, ADIFF, ANEU #### [address] [address] #### TROP, GFR, CMP #### [address] [address] Neutrophils/100 WBC (Bld) 43.4 % Normal 37.0-80.0 [facility] ([place]) Comment on above: Performed By: #### C BC, ADIFF, ANEU #### [address] [address] #### TROP, GFR, CMP #### [address] [address] .GFRon 08-04-2018 GFR 70 ml/min/1.73sqm Normal [facility] ([place]) Comment on above: Result Comment: GFR Population [...] By: #### C BC, ADIFF, ANEU #### [address] [address] #### TROP, GFR, CMP #### [address] [address] GFR Non- 58 ml/min/1.73sqm Normal [facility] ([place]) Comment on above: Result Comment: GFR Population [...] By: #### C BC, ADIFF, ANEU #### [place] [address] #### TROP, GFR, CMP #### [place] [id number] .NEUABSon 08-04-2018 Neutrophils (Bld) [#/Vol] 1.80 10 3/mcL Low 2.85-6.16 [facility] ([place]) Comment on above: Performed By: #### C BC, ADIFF, ANEU #### [place] [address] #### TROP, GFR, CMP #### [place] [address] CBCon 08-04-2018 Erythrocyte distribution width (RBC) [Ratio] 12.5 % Normal 11.5-14.5 [facility] ([place]) Comment on above: Performed By: #### C BC, ADIFF, ANEU #### [place] [address] #### TROP, GFR, CMP #### [place] [address] Hematocrit (Bld) [Volume fraction] 42.1 % Normal 37.0-47.0 [facility] ([place]) Comment on above: Performed By: #### C BC, ADIFF, ANEU #### [place] [address] #### TROP, GFR, CMP #### [place] [address] Hemoglobin (Bld) [Mass/Vol] 14.1 G/dL Normal 12.0-16.0 [facility] ([place]) Comment on above: Performed By: #### C BC, ADIFF, ANEU #### [place] [address] #### TROP, GFR, CMP #### [address] [address] MCH (RBC) [Entitic mass] 29.5 pg Normal 27.0-31.2 [facility] ([place]) Comment on above: Performed By: #### C BC, ADIFF, ANEU #### [address] [address] #### TROP, GFR, CMP #### [address] [address] MCHC (RBC) [Mass/Vol] 33.4 G/dL Normal 33.0-37.0 [facility] ([place]) Comment on above: Performed By: #### C BC, ADIFF, ANEU #### [place] [address] #### TROP, GFR, CMP #### [address] [address] MCV (RBC) [Entitic vol] 88.2 fL Normal 80.0-94.0 [facility] ([place]) Comment on above: Performed By: #### C BC, ADIFF, ANEU #### [place] [address] #### TROP, GFR, CMP #### [place] [address] Platelet mean volume (Bld) [Entitic vol] 8.6 fL Normal 7.4-10.4 [facility] ([place]) Comment on above: Performed By: #### C BC, ADIFF, ANEU #### [place] [address] #### TROP, GFR, CMP #### [address] [address] Platelets (Bld) [#/Vol] 170 10 3/mcL Normal 130-400 [facility] ([place]) Comment on above: Performed By: #### C BC, ADIFF, ANEU #### [address] [address] #### TROP, GFR, CMP #### [place] [address] RBC (Bld) [#/Vol] 4.77 10 6/mcL Normal 4.20-5.40 [facility] ([place]) Comment on above: Performed By: #### C BC, ADIFF, ANEU #### [place] [address] #### TROP, GFR, CMP #### [place] [address] WBC (Bld) [#/Vol] 4.10 10 3/mcL Low 4.60-10.80 [facility] ([place]) Comment on above: Performed By: #### C BC, ADIFF, ANEU #### [place] [address] #### TROP, GFR, CMP #### [place] [address] CMPon 08-04-2018 ALP [Catalytic activity/Vol] 83 U/L Normal 40-135 [facility] ([place]) Comment on above: Performed By: #### C BC, ADIFF, ANEU #### [place] [address] #### TROP, GFR, CMP #### [place] [address] ALT [Catalytic activity/Vol] 39 U/L High 10-35 [facility] ([place]) Comment on above: Performed By: #### C BC, ADIFF, ANEU #### [place] [address] #### TROP, GFR, CMP #### [place] [address] AST [Catalytic activity/Vol] 23 U/L Normal 10-40 [facility] ([place]) Comment on above: Performed By: #### C BC, ADIFF, ANEU #### [place] [address] #### TROP, GFR, CMP #### [place] [address] Bili Total 0.3 mg/dL Normal 0.2-1.0 [facility] ([place]) Comment on above: Performed By: #### C BC, ADIFF, ANEU #### [address] [address] #### TROP, GFR, CMP #### [address] [address] Calcium [Mass/Vol] 8.5 mg/dL Normal 8.4-10.2 [facility] ([place]) Comment on above: Performed By: #### C BC, ADIFF, ANEU #### [address] [address] #### TROP, GFR, CMP #### [address] [address] Chloride [Moles/Vol] 103 mmol/L Normal 98-107 [facility] ([place]) Comment on above: Performed By: #### C BC, ADIFF, ANEU #### [place] [address] #### TROP, GFR, CMP #### [address] [address] CO2 [Moles/Vol] 25 mmol/L Normal 22-29 [facility] ([place]) Comment on above: Performed By: #### C BC, ADIFF, ANEU #### [address] [address] #### TROP, GFR, CMP #### [address] [address] Electrolyte Balance 10.0 mEq/L Normal [facility] ([place]) Comment on above: Performed By: #### C BC, ADIFF, ANEU #### [address] [address] #### TROP, GFR, CMP #### [address] [address] Glucose [Mass/Vol] 106 mg/dL High 70-105 [facility] ([place]) Comment on above: Performed By: #### C BC, ADIFF, ANEU #### [address] [address] #### TROP, GFR, CMP #### [address] [address] Potassium [Moles/Vol] 3.8 mmol/L Normal 3.5-5.1 [facility] ([place]) Comment on above: Performed By: #### C BC, ADIFF, ANEU #### [address] [address] #### TROP, GFR, CMP #### [address] [address] Sodium [Moles/Vol] 138 mmol/L Normal 136-145 [facility] ([place]) Comment on above: Performed By: #### C BC, ADIFF, ANEU #### [address] [address] #### TROP, GFR, CMP #### [address] [address] Albumin [Mass/Vol] 3.3 G/dL Low 3.5-5.0 [facility] ([place]) Comment on above: Performed By: #### C BC, ADIFF, ANEU #### [address] [address] #### TROP, GFR, CMP #### [address] [address] Albumin/Globulin [Mass ratio] 1.0 {ratio} Low 1.1-2.5 [facility] ([place]) Comment on above: Performed By: #### C BC, ADIFF, ANEU #### [address] [address] #### TROP, GFR, CMP #### [address] [address] Creatinine [Mass/Vol] 1.10 mg/dL High 0.55-1.02 [facility] ([place]) Comment on above: Performed By: #### C BC, ADIFF, ANEU #### [address] [address] #### TROP, GFR, CMP #### [address] [address] Globulin (S) [Mass/Vol] 3.4 G/dL Normal [facility] ([place]) Comment on above: Performed By: #### C BC, ADIFF, ANEU #### [address] [address] #### TROP, GFR, CMP #### [address] [address] Protein [Mass/Vol] 6.7 G/dL Normal 6.4-8.2 [facility] ([place]) Comment on above: Performed By: #### C BC, ADIFF, ANEU #### [address] [address] #### TROP, GFR, CMP #### [address] [address] Urea nitrogen [Mass/Vol] 13 mg/dL Normal 7-18 [facility] ([place]) Comment on above: Performed By: #### C BC, ADIFF, ANEU #### [address] [address] #### TROP, GFR, CMP #### [address] [address] Urea nitrogen/Creatinine [Mass ratio] 12 ratio Normal 7-27 [facility] ([place]) Comment on above: Performed By: #### C BC, ADIFF, ANEU #### [address] [address] #### TROP, GFR, CMP #### [address] [address] TROPon 08-04-2018 Troponin I.cardiac [Mass/Vol] ng/mL Normal 0.000-0.04 0 [facility] ([place]) Comment on above: Result Comment: Trop onin I reference range: 0.00-0.040 ng/mL Negative and non-diagnostic. >0.040 ng/mL Consistent with cardiac damage, increased clinical risk and possibility of myocardial infarction. Serial measurements, a rise & fall in test results, clinical history, appropriate symptoms and/or ECG changes may help assess possibility of UT. *Other non-acute coronary syndrome conditions such as CHF, myocarditis, pulmonary emboli, sepsis and cardiac surgery could result in myocardial damage and increased troponin levels. Performed By: #### C BC, ADIFF, ANEU #### [facility] [address] [place], [place] [address] #### TROP, GFR, CMP #### [place] [address] [place] [id number] XR CHEST 2 VIEWSon 8 XR CHEST [...] PM Sign Date: 08/03/2018 11:48:19 PM Normal [facility] ([place]) COVID-19 virus antigen assay SARS-CoV-2 (COVID-19) Ag IA.rapid Ql (Resp) [facility] Work Phone: Clostridium difficile detect ion by polymerase chain reaction C. difficile DNA FILIPPO+probe Ql (Unsp spec) [facility] Work Phone: EP Panel Gastrointestinal pathogens panel FILIPPO+probe (Stl) [facility] Work Phone: Stool Clostridium difficile detection C. difficile Ql (Stl) [facility] Work Phone: Stool lactoferrin detection by immunoassay Lactoferrin IA Ql (Stl) [facility] Work Phone: Vital Signs Date Time Vital Sign Value Performing Clinician Facility 06-07-2025 11:54-0400 Body height 168 cm Che Pham MD Work Phone: [facility] 06-07-2025 11:54-0400 Body height 167.64 cm Che Pham MD Work Phone: [facility] 06-07-2025 11:54-0400 Body mass index (BMI) [Ratio] 43.57 kg/m2 Che Pham MD Work Phone: [facility] 06-07-2025 11:54-0400 Body weight 122 kg Che Pham MD Work Phone: [facility] 06-07-2025 11:54-0400 Body weight 122.02 kg Che Pham MD Work Phone: [facility] 06-07-2025 11:54-0400 BP SITE #1 Che Pham MD Work Phone: [facility] 06-07-2025 11:54-0400 Diastolic blood pressure 72 mm[Hg] Che Pham MD Work Phone: [facility] 06-07-2025 11:54-0400 HGHTCHNVIS Che Pham MD Work Phone: [facility] 06-07-2025 11:54-0400 Systolic blood pressure 115 mm[Hg] Che Pham MD Work Phone: [facility] 06-07-2025 11:54-0400 VITALSDONE Che Pham MD Work Phone: [facility] 12-27-2024 09:26-0400 Body height 167.6 cm Scott Quiñonez MD Work Phone: [facility] 12-27-2024 09:26-0400 Body mass index (BMI) [Ratio] 43.26 kg/m2 Scott Quiñonez MD Work Phone: [facility] 12-27-2024 09:26-0400 Body weight 121.56 kg Scott Quiñonez MD Work Phone: [facility] 12-27-2024 09:26-0400 Diastolic blood pressure 82 mm[Hg] Scott Quiñonez MD Work Phone: [facility] 12-27-2024 09:26-0400 Respiratory rate 12 /min Scott Quiñonez MD Work Phone: [facility] 12-27-2024 09:26-0400 Systolic blood pressure 120 mm[Hg] Scott Quiñonez MD Work Phone: [facility] 12-01-2022 07:16-0500 Body temperature 98.3 [degF] [facility] 12-01-2022 07:16-0500 Diastolic blood pressure 62 mm[Hg] [facility] 12-01-2022 07:16-0500 Heart rate 58 /min [facility] 12-01-2022 07:16-0500 Respiratory rate 18 /min [facility] 12-01-2022 07:16-0500 SaO2% (BldA) [Mass fraction] 100 % [facility] 12-01-2022 07:16-0500 Systolic blood pressure 100 mm[Hg] [facility] 12-01-2022 05:56-0500 Body height 172.72 cm [facility] 12-01-2022 05:56-0500 Body mass index (BMI) [Ratio] 37.8 kg/m2 [facility] 12-01-2022 05:56-0500 Body weight 112.94 kg [facility] 09-19-2022 10:31-0500 Body height 172.72 cm [facility] 09-19-2022 10:31-0500 Body mass index (BMI) [Ratio] 39.2 kg/m2 [facility] 09-19-2022 10:31-0500 Body weight 117.02 kg [facility] 08-15-2022 14:01-0500 Body temperature 98.6 [degF] Mary Ellen Jacobs PA-C Work Phone: [facility] 08-15-2022 14:01-0500 Body weight 114.76 kg Mary Ellen Abram PA-C Work Phone: [facility] 08-15-2022 14:01-0500 Diastolic blood pressure 95 mm[Hg] Mary Ellen Abram PA-C Work Phone: [facility] 08-15-2022 14:01-0500 Heart rate 72 /min Mary Ellen Abram PA-C Work Phone: [facility] 08-15-2022 14:01-0500 Respiratory rate 16 /min Mary Ellen Abram PA-C Work Phone: [facility] 08-15-2022 14:01-0500 SaO2% (BldA) [Mass fraction] 100 % Mary Ellen Abram PA-C Work Phone: [facility] 08-15-2022 14:01-0500 Systolic blood pressure 151 mm[Hg] Mary Ellen Abram PA-C Work Phone: [facility] 08-07-2022 14:21-0500 Diastolic blood pressure 87 mm[Hg] [facility] 08-07-2022 14:21-0500 Heart rate 90 /min [facility] 08-07-2022 14:21-0500 Respiratory rate 18 /min [facility] 08-07-2022 14:21-0500 SaO2% (BldA) [Mass fraction] 98 % [facility] 08-07-2022 14:21-0500 Systolic blood pressure 138 mm[Hg] [facility] 08-07-2022 11:56-0500 Body temperature 97 [degF] [facility] 08-07-2022 11:45-0500 Inhaled oxygen flow rate 4 L/min [facility] 08-07-2022 06:04-0500 Body height 172.72 cm [facility] Work Phone: 08-07-2022 06:04-0500 Body mass index (BMI) [Ratio] 38.1 kg/m2 [facility] 08-07-2022 06:04-0500 Body weight 113.76 kg [facility] 05-11-2022 13:04-0400 Body temperature 98.01 [degF] Seamus Torres MD Work Phone: [facility] 05-11-2022 13:04-0400 Body weight 116.39 kg Seamus Torres MD Work Phone: [facility] 05-11-2022 13:04-0400 Diastolic blood pressure 71 mm[Hg] Seamus Torres MD Work Phone: [facility] 05-11-2022 13:04-0400 Heart rate 70 /min Seamus Torres MD Work Phone: [facility] 05-11-2022 13:04-0400 Respiratory rate 18 /min Seamus Torres MD Work Phone: [facility] 05-11-2022 13:04-0400 SaO2% (BldA) [Mass fraction] 99 % Seamus Torres MD Work Phone: [facility] 05-11-2022 13:04-0400 Systolic blood pressure 128 mm[Hg] Seamus Torres MD Work Phone: [facility] 09-30-2021 15:49-0500 Body temperature 97.7 [degF] [facility] Work Phone: 09-30-2021 15:49-0500 Diastolic blood pressure 74 mm[Hg] [facility] Work Phone: 09-30-2021 15:49-0500 Heart rate 69 /min [facility] Work Phone: 09-30-2021 15:49-0500 Respiratory rate 16 /min [facility] Work Phone: 09-30-2021 15:49-0500 SaO2% (BldA) [Mass fraction] 99 % [facility] Work Phone: 09-30-2021 15:49-0500 Systolic blood pressure 128 mm[Hg] [facility] Work Phone: 09-30-2021 09:14-0500 Body height 172.72 cm [facility] Work Phone: 09-30-2021 09:14-0500 Body mass index (BMI) [Ratio] 40.2 kg/m2 [facility] Work Phone: 09-30-2021 09:14-0500 Body weight 120 kg [facility] Work Phone: 12-11-2020 20:23-0400 Body mass index (BMI) [Ratio] 41.8 kg/m2 [facility] Work Phone: Encounters Encounter Date Encounter Type Care Provider Facility Start: 08-02-2025 ambulatory [facility] Facility:[facility] Start: 06-07-2025 In-person encounter Che asif MD Work Phone: [facility] Work Phone: Start: 06-07-2025 Visit out of hours Che manley MD Work Phone: [employer] Work Phone: Start: 03-28-2025 End: 03-28-2025 Patient encounter procedure Jamshid Escobedo DO [facility] Work Phone: Start: 03-28-2025 End: 03-28-[address] Nereyda Alexandra MD Work Phone: [facility] Start: 12-27-2024 End: 12-27-2024 Office outpatient new 30 minutes Scott Quiñonez MD Work Phone: [facility] [place] Comment on above: Carpal tunnel syndro me, bilateral (Primary Dx); Cubital tunnel syndrome, bilateral Start: 12-27-2024 End: 12-27-2024 ambulatory SCOTT QUIÑONEZ [facility] Start: 12-08-2024 End: 12-08-2024 Patient encounter procedure [facility] Work Phone: Start: 12-08-2024 End: 12-08-2024 ambulatory Nereydaalexis Alexandra Facility:[facility] Start: 11-17-2024 ambulatory Nereyda Stollwaqar Alexandra Faci lity:[facility] Start: 11-17-2024 End: 11-17-2024 ambulatory Nereydaalexis Alexandra Facility:[facility] Start: 11-02-2024 ambulatory Gisela Wyatt Facility:[facility] Start: 11-02-2024 End: 11-02-2024 ambulatory Nereyda Stollwaqar Alexandra Facility:[facility] Start: 09-06-2024 End: 09-06-2024 ambulatory Nereyda Stollwaqar Alexandra Facility:[facility] Start: 08-06-2024 End: 08-07-2024 Emergency department patient visit Henry Hutchins Facility:[facility] Start: 12-29-2023 End: 12-29-2023 ambulatory NEREYDA STOLLWAQAR [facility] Work Phone: Start: 12-29-2023 End: 12-29-2023 Patient encounter procedure NEREYDA PEDRO IBRAHIMA [facility], [facility] Work Phone: Start: 10-23-2023 End: 10-23-2023 Patient encounter procedure NEREYDA PEDRO IBRAHIMA [facility] Work Phone: Start: 10-03-2023 End: 10-28-2023 ambulatory NEREYDA PEDRO [facility] Work Phone: Start: 10-03-2023 End: 10-28-2023 Discharged Recurring NEREYDA STOLLWAQAR ALEXANDRA [facility] Start: 07-31-2023 End: 07-31-[address] Jamshid Escobedo Work Phone: [facility] Work Phone: Start: 07-31-2023 End: 07-31-[address] Jamshid Escobedo Work Phone: [facility] Work Phone: Start: 07-12-2023 End: 07-12-[address] Jamshid Escobedo Work Phone: [facility] Work Phone: Start: 06-13-[address] Cara Escobedo Work Phone: [facility] Start: 06-13-2023 End: 06-13-[address] Jamshid Escobedo Work Phone: [facility] Work Phone: Start: 06-13-2023 End: 06-13-[address] Jamshid Escobedo Work Phone: [facility] Work Phone: Start: 05-04-2023 End: 05-04-[address] Jamshid Escobedo Work Phone: [facility] Work Phone: Start: 12-01-2022 Non-patient / Non-visit [facility] Start: 12-01-2022 End: 12-01-2022 Admission to same day surgery center [facility] Start: 12-01-2022 End: 12-01-2022 ambulatory [facility] Work Phone: Start: 10-07-2022 End: 10-07-2022 ambulatory [facility] Work Phone: Start: 10-07-2022 End: 10-07-2022 Patient encounter procedure [facility] Start: 09-23-2022 End: 09-23-2022 ambulatory [facility] Work Phone: Start: 09-23-2022 End: 09-23-2022 Patient encounter procedure [facility]Laboratory, Specimen Start: 09-19-2022 End: 09-19-2022 ambulatory NEREYDA PEDRO [facility] Work Phone: Start: 09-19-2022 End: 09-19-2022 Patient encounter procedure NEREYDA PEDRO [facility] Start: 09-19-2022 End: 09-19-2022 Patient encounter procedure NEREYDA PEDRO [facility] Start: 08-15-2022 End: 08-15-2022 ambulatory [facility] Facility:[id number] Start: 08-15-2022 End: 08-15-2022 Patient encounter procedure [facility] Jacobs [facility]C [facility] Comment on above: Dermatitis (Primary Dx) Start: 08-07-2022 End: 08-07-2022 Admission to same day surgery center [facility] Start: 08-07-2022 End: 08-07-2022 ambulatory [facility] Work Phone: Start: 06-08-2022 End: 06-27-2022 ambulatory [facility] Work Phone: Start: 06-08-2022 End: 06-27-2022 Discharged Recurring [facility] Start: 05-21-2022 End: 05-21-2022 ambulatory [facility] Work Phone: Start: 05-21-2022 End: 05-21-2022 [facility] [employer] [facility] Start: 05-11-2022 End: 05-11-2022 ambulatory [facility] Facility:[id number] Start: 05-11-2022 End: 05-11-2022 Office outpatient new 30 minutes Seamus Torrse MD Work Phone: [facility] Comment on above: Partial thickness bu rn of left hand including fingers, initial encounter (Primary Dx) Start: 04-15-2022 End: 04-15-2022 [facility] Start: 12-30-2021 End: 01-25-2022 Discharged Recurring [facility] Start: 12-28-2021 Patient encounter procedure [facility] Start: 09-30-2021 End: 09-30-2021 [facility] Start: 11-18-2018 End: 11-18-2018 Patient encounter procedure [facility] Facility:[facility] Start: 11-04-2018 End: 11-04-2018 Patient encounter procedure [facility] Facility:[facility] Start: 10-22-2018 End: 10-22-2018 Patient encounter procedure [facility] Facility:[facility] Start: 10-07-2018 End: 10-07-2018 Patient encounter procedure [facility] Facility:[facility] Start: 09-23-2018 End: 09-23-2018 Patient encounter procedure [facility] Facility:[facility] Start: 09-16-2018 Patient encounter procedure [facility] Facility:[facility] Start: 09-09-2018 Patient encounter procedure [facility] Facility:[facility] Start: 09-01-2018 End: 09-01-2018 Patient encounter procedure [facility] Facility:[facility] Start: 08-26-2018 End: 08-26-2018 Patient encounter procedure [facility] Facility:[facility] Procedures Date Procedure Procedure Detail Performing Clinician Start: 06-07-2025 Blood pressure withi n normal parameters - no follow-up required Che Pham MD Work Phone: Start: 06-07-2025 BMI outside of elvia l parameters - no follow-up plan/reason not given Che Pham MD Work Phone: Start: 06-07-2025 Current tobacco non- user cad cap copd pv dm Che Pham MD Work Phone: Start: 06-07-2025 Documentation of cur rent medications Che Pham MD Work Phone: Start: 06-07-2025 Pain assessment docu mented as negative - follow-up not required Che Pham MD Work Phone: Start: 12-29-2023 Radionuclide gastric emptying study NEREYDA PEDRO IBRAHIMA Start: 10-03-2023 Viral antigen assay MARÍA ELENA STLOLWAQAR ALEXANDRA Start: 07-31-2023 Screening mammography Sea Escobedo Work Phone: Start: 06-13-[address] Jamshid Escobedo Work Phone: Start: 12-01-2022 Colonoscopy NEREYDA MERLINE PUENTESO IBRAHIMA Start: 10-07-2022 Computed tomography of abdomen and pelvis with contrast NEREYDA PEDRO IBRAHIMA Start: 08-07-2022 Total abdominal hysterectomy Start: 05-11-2022 Adult depression scr eening assessment Seamus Torres MD Work Phone: Start: 12-30-2021 End: 12-30-2021 Viral antigen assay Start: 09-25-2021 SARS-CoV-2 Antigen (Rapid) Clostridium difficil e detection NEREYDA FALVO IBRAHIMA Clostridium difficil e detection NEREYDA FALVO IBRAHIMA Clostridium difficil e detection NEREYDA FALVO IBRAHIMA Enteric Bacteriology NEREYDA FALVO IBRAHIMA Enteric Bacteriology NEREYDA FALVO LANG Lactoferrin measurement OMAR ICA FALVO LANG Lactoferrin measurement OMAR ICA FALVO LANG Viral antigen assay Plan of Treatment Date Care Activity Detail Author Start: 2061 RSV Immunization for Adults (1 - 1-dose 75+ series) RSV Immunization for Adults (1 - 1-dose 75+ series) [facility] Start: 2036 Zoster Vaccines (1 of 2) Zoster Vaccines (1 of 2) [facility] Start: 05-29-2025 Influenza vaccination Influenza Vaccine (Season Ended) [facility] Start: 05-29-2024 COVID-19 Vaccine ( season) COVID-19 Vaccine ( season) [facility] Start: 05-11-2023 Adult depression screening assessment DEPRESSION SCREENING [facility] Start: 12-01-2022 Patient discharge [facility] Start: 09-19-2022 Immunoglobulin measurement [facility] Work Phone: Start: 09-19-2022 Procedure [facility] Work Phone: Start: 09-19-2022 Serum immunofixation [facility] Work Phone: Start: 09-19-2022 [facility] Work Phone: Start: 08-07-2022 Anesthesia intraperitoneal lower abd w/laps nos ANESTH SURG LOWER ABDOMEN [facility] Start: 08-07-2022 Laparoscopy w total hysterectomy uterus 250 gm/< TLH UTERUS 250 G OR LESS [facility] Start: 08-07-2022 Patient discharge [facility] Start: 08-07-2022 Ambulation without limitation [facility] Start: 08-07-2022 Medication education [facility] Start: 08-07-2022 Planned voiding [facility] Start: 08-07-2022 Taking patient vital signs [facility] Start: 08-07-2022 Vital signs measurements [facility] Start: 08-07-2022 [facility] Start: 07-09-2022 COVID-19 VACCINE (3 - Booster for Pfizer series) COVID-19 VACCINE (3 - Booster for Pfizer series) [facility] Start: 05-29-2022 Influenza vaccination INFLUENZA (#1) [facility] Start: 04-03-2022 COVID-19 VACCINE (3 - Booster for Pfizer series) COVID-19 VACCINE (3 - Booster for Pfizer series) [facility] Start: 09-30-2021 Hysteroscopy endometrial ablation HYSTEROSCOPY ABLATION [facility] Work Phone: Start: 09-30-2021 Laparoscopy w/rmvl adnexal structures LAPAROSCOPY REMOVE ADNEXA [facility] Work Phone: Start: 09-28-2021 DEPRESSION ASSESSMENT DEPRESSION ASSESSMENT [facility] Start: 05-29-2017 PAP TESTING PAP TESTING [facility] Start: 2016 HPV TESTING HPV TESTING [facility] Start: 2016 Screening for malignant neoplasm of cervix [facility] Start: 2007 Screening for malignant neoplasm of cervix Pap Smear [facility] Start: 2005 Urine microalbumin profile DTAP,TDAP,TD (1 - Tdap) [facility] Start: 2004 HEPATITIS C SCREENING HEPATITIS C SCREENING [facility] Start: 2004 Hepatitis C screening Hepatitis C Screening [facility] Start: 2004 HIV SCREENING HIV SCREENING [facility] Start: 1999 Varicella vaccination Varicella Vaccines (1 of 2 - 13+ 2-dose series) [facility] Start: 06-05-1999 DTaP/Tdap/Td Vaccines (6 - Tdap) DTaP/Tdap/Td Vaccines (6 - Tdap) [facility] Start: 1998 Depression Screening Depression Screening [facility] Start: 1986 HEPATITIS B (1 of 3 - 3-dose series) HEPATITIS B (1 of 3 - 3-dose series) [facility] Start: 1986 HIV screening HIV Screening [facility] Albumin [Moles/volum e] in Serum or Plasma [facility] Work Phone: Albumin/Globulin ratio [facility] Work Phone: CT Abdomen and Pelvi s W contrast IV [facility] Work Phone: Electrophoresis: [id number] [facility] Work Phone: Electrophoresis: erlin ma globulin [facility] Work Phone: Globulin measurement [facility] Work Phone: IgA [Mass/volume] in Serum or Plasma [facility] Work Phone: IgE [Units/volume] i n Serum or Plasma [facility] Work Phone: IgG [Mass/volume] in Serum or Plasma [facility] Work Phone: IgM [Mass/volume] in Serum or Plasma [facility] Work Phone: Neutrophil cytoplasm ic Ab.classic [Units/volume] in Serum [facility] Work Phone: P-ANCA measurement [facility]: [facility] referral [facility] Work Phone: Procedure [facility] Work Phone: Protein electrophore sis panel - Serum or Plasma [facility] Work Phone: Serum protein electrophoresis [facility] Work Phone: Immunizations Immunization Date Immunization Notes Care Provider [facility] 08-26-2022 influenza, injectabl e, quadrivalent, preservative free Dr. Jamshid Escobedo Work Phone: [facility] 08-26-2022 influenza, seasonal, injectable [facility] 08-26-2022 influenza virus vaccine, unspecified formulation Scott Quiñonez MD Work Phone: [facility] 02-06-2022 Covid (Pfizer) [facility] 01-16-2022 Covid (Pfizer) [facility] 06-27-2020 Influenza virus vaccine [facility] 06-25-2018 influenza, injectabl e, quadrivalent, preservative free Dr. Jamshid Escobedo Work Phone: [facility] 06-25-2018 influenza, seasonal, injectable [facility] 06-27-2016 influenza, injectabl e, quadrivalent, preservative free Dr. Jamshid Escobedo Work Phone: [facility] 06-27-2016 influenza, seasonal, injectable [facility] 08-13-2015 influenza, injectabl e, quadrivalent, preservative free Dr. Jamshid Escobedo Work Phone: [facility] 08-13-2015 influenza, seasonal, injectable [facility] 06-28-2014 influenza, injectabl e, quadrivalent, preservative free Dr. Jamshid Escobedo Work Phone: [facility] 06-28-2014 influenza, seasonal, injectable [facility] 07-28-2002 hepatitis B vaccine, pediatric or pediatric/adolescent dosage [facility] 12-17-1999 hepatitis B vaccine, pediatric or pediatric/adolescent dosage [facility] 07-16-1999 hepatitis B vaccine, pediatric or pediatric/adolescent dosage [facility] 06-04-1999 hepatitis B vaccine, pediatric or pediatric/adolescent dosage [facility] 06-04-1999 measles, mumps and rubella virus vaccine [facility] 06-04-1999 TD(adult) unspecifie d formulation NEREYDA PEDRO [facility] 05-15-1988 measles, mumps and rubella virus vaccine [facility] Payers Date Payer Category Payer [employer] - O [id number] 2024 Unknown [id number] 2024 Self-pay [id number] 2024 Unknown [id number] 2024 Unknown [id number] 2022 Unknown [id number] 2022 Unknown [id number] 2022 Unknown [id number] 15 2012 Unknown [id number] 1986 Unknown [id number] 2.16.8 40.1.158781.3.579.2.278 1986 Unknown [id number] 2.16.8 40.1.614073.3.579.2.278 1986 Unknown [id number] 2.16.8 40.1.583677.3.579.2.278 1986 Unknown [id number] 2.16.8 40.1.175531.3.579.2.278 1986 Unknown [id number] 2.16.8 40.1.740361.3.579.2.278 1986 Unknown [id number] 2.16.8 40.1.885321.3.579.2.278 1986 Unknown [id number] 2.16.8 40.1.901033.3.579.2.278 1986 Unknown [id number] 2.16.8 40.1.170978.3.579.2.278 1986 Unknown [id number] 2.16.8 40.1.244362.3.579.2.278 Unknown [id number] 2.16.8 40.1.976591.3.579.2.462 Unknown [id number] 2.16.8 40.1.703589.3.579.2.462 Unknown [id number] 2.16.8 40.1.989720.3.579.2.462 Unknown [id number] 2.16.8 40.1.366513.3.579.2.462 Unknown [id number] 2.16.8 40.1.086862.3.579.2.462 Unknown [id number] 2.16.8 40.1.336709.3.579.2.462 Unknown [id number] 2.16.8 40.1.161231.3.579.2.462 Unknown [id number] 2.16.8 40.1.578456.3.579.2.462 Unknown [id number] 2.16.8 40.1.563655.3.579.2.462 Social History Date Type Detail Facility [facility] Work Phone: Start: 09-23-2021 End: 10-23-2023 Tobacco smoking status IDIS Unknown if ever smoked [facility] Start: 1985 Sex Assigned At Female [facility] Start: 01-14-2013 End: 11-15-2024 Tobacco smoking status IDIS Never smoked tobacco [facility] Start: 01-14-2013 Tobacco use and exposure Smokeless tobacco non-user [facility] Start: 05-11-2022 End: 08-15-2022 Alcohol intake Current drinker of alcohol (finding) [facility] Start: 01-14-2013 History SDOH Alcohol Comment occasional [facility] Start: 1985 Sex Assigned At Not on file [facility] Start: 05-01-2022 End: 08-15-2022 Exposure to SARS-CoV-2 (event) Not sure [facility] Start: 11-16-2024 Sex Female (finding) [facility] Start: 06-07-2025 Gender identity Not on file [facility] Zane ealt NEGATED: Highlighted row [facility] Goals Date Patient Goal Desired Activity /State Mental Status Date Assessment Result Facility 12-01-2022 Cognitive function Voice/Name [facility] Work Phone: 08-07-2022 Cognitive function Voice/Name [facility] Work Phone: 09-30-2021 Cognitive function Voice/Name [facility] Work Phone: 09-30-2021 Cognitive function Patient Orien tation Person;Place;Time [facility] Work Phone: Clinical Notes 05-11-2022 to 12-27-2024 Scott Quiñonez MD - 12/27/2024 9:30 AM EDT Note Date & Type Note Facility 12-27-2024 History of Presen t illness Narrative Images from the original note were not included. [facility] [address] [address] Dept: [phone] Dept 12/27/2024 Chief Complaint Patient presents with New Patient Bilateral carpal tunnel HISTORY Suha Rivas is a 39 y.o. Right-handed female who presents today complaining of numbness, sharp/stabbing, throbbing, and tingling in her BILATERAL hand left worse than right, involving the index finger, long finger, ring finger, little finger, thumb that has been present for 6 month(s) She reports nighttime awakening and frequently dropping things. She admits to medial elbow discomfort. Previous treatments include: Night Splinting: Yes Injections: No EMG: Yes Surgery on Affected Extremity: No Had a second opinion. She is seeing Dr. Vero alvarez for this. Her biggest symptom is centered around her left hand specifically numbness of all fingers most severely affecting the ring finger. She is a with the most recent 1 showing mild carpal tunnel syndrome. She has been seen previously by Dr. Che Pham who ordered the 2nd nerve conduction study for completion of the EMG portion as well as an MRI due to clicking and popping on the mid dorsum of her left wrist. She reports her most concerning symptoms of the numbness and tingling which wake her from sleep she is wearing night splints but she takes them off every morning. She is 35 as they bother her during sleep. She has never had a steroid injection. No results found for: HGBA1C No past surgical history on file. No past medical history on file. No family history on file. Social History Socioeconomic History Marital status: Spouse name: Not on file Number of children: Not on file Years of education: Not on file Highest education level: Not on file Occupational History Not on file Tobacco Use Smoking status: Not on file Smokeless tobacco: Not on file Substance and Sexual Activity Alcohol use: Not on file Drug use: Not on file Sexual activity: Not on file Other Topics Concern Not on file Social History Narrative Not on file Social Drivers of Health Financial Resource Strain: Not on file Food Insecurity: Not on file Transportation Needs: Not on file Physical Activity: Not on file Stress: Not on file Social Connections: Not on file Intimate Partner Violence: Not on file Housing Stability: Not on file Not on File Current Outpatient Medications Medication Sig Dispense Refill ARIPiprazole (Abilify) 2 MG tablet Take 2 mg by mouth daily. buPROPion XL (Wellbutrin XL) 150 MG 24 hr tablet Take 150 mg by mouth. buPROPion XL (Wellbutrin XL) 300 MG 24 hr tablet busPIRone (Buspar) 10 MG tablet Take 10 mg by mouth 2 times daily. colestipol (Colestid) 1 g tablet TAKE 1 TABLET BY MOUTH AT BEDTIME. AVOID OTHER MEDICATIONS 1 HOUR BEFORE OR 4 HOURS AFTER dicyclomine (Bentyl) 10 MG capsule Inject into the shoulder, thigh, or buttocks. dicyclomine (Bentyl) 20 MG tablet TAKE 1 TABLET BY MOUTH TWICE DAILY AND ONCE NEEDED EPINEPHrine (Epipen) 0.3 MG/0.3ML injection syringe esomeprazole (NexIUM) [address] capsule Take 40 mg by mouth daily. Opzelura 1.5 % cream phentermine (Adipex-P) 37.5 MG tablet Take 37.5 mg by mouth daily. No current facility-administered medications for this visit. OBJECTIVE BP 120/82 Resp 12 Ht 1.676 m (5' 6) Wt 122 kg (268 lb) BMI 43.26 kg/m Ortho Exam Comprehensive Exam of BILATERAL Upper Extremities RIGHT LEFT Atrophy not present not present Tinel's at Wrist POSITIVE POSITIVE Carpal Compression POSITIVE POSITIVE Tinel's at Elbow POSITIVE POSITIVE Flexion/Compression Elbow POSITIVE POSITIVE Ulnar Nerve Subluxation not appreciated not appreciated APB Strength Not tested Not tested Intrinsic Strength 5/5 5/5 2-point discrimination (mm) RIGHT Hand Thumb Index Long Ring Small r u r u r u r u r u 5 5 5 5 5 5 5 5 5 5 Median Ulnar 2-point discrimination (mm) LEFT Hand Thumb Index Long Ring Small r u r u r u r u r u 5 5 5 5 5 5 6 7 5 5 Median Ulnar Palpable radial pulses bilaterally. Full range of motion without evidence of instabilities in bilateral shoulders, elbows, wrists, or digits. CTS 6 RIGHT LEFT Numbness in predominantly or exclusively in Median Nerve distribution yes Yes, 3.5 points Nocturnal Symptoms Yes, 4 points Yes, 4 points Thenar Atrophy or weakness No No Positve Phalen's(Durkins) test Yes, 5 points Yes, 5 points 2ppt >5mm Yes, 4.5 points Yes, 4.5 points Positive Tinels Yes, 4 points Yes, 4 points Total (score >12 + for CTS) 20 20 Negative foveal tenderness Negative TFCC loading. Negative piano rivera Negative Palmer's Negative ECU subluxation Negative de Quervain's IMAGING none NCT/EMG (Copied Impression) PROCEDURE none ASSESSMENT (G56.03) Carpal tunnel syndrome, bilateral (G56.23) Cubital tunnel syndrome, bilateral 1. Carpal tunnel syndrome, bilateral 2. Cubital tunnel syndrome, bilateral PLAN I discussed with Suha the etiology and natural history of both carpal tunnel as well as cubital tunnel syndrome. Nerve conduction studies did not pick up attendant the nerve changes at the ulnar nerve at the elbow however she is extremely provocative in this as well as having numbness and tingling in the ulnar distribution as well as median nerve distribution. Based on the physical exam findings I do think this supports the diagnosis of cubital tunnel. I discussed various treatment options with the patient she is currently scheduled to get an MRI due to some snapping in the central wrist dorsally that she has ordered by Dr. Pham. I discussed her treatment options with her and answered any questions that she may have. As well as the risks and benefits of both conservative and invasive interventions. She decided to pursue possible surgical intervention after she weighs all of her options she will reach out . The above diagnosis has been present for less than 1 year I did thoroughly review previous notes from other providers including myself, previous imaging, as well as pertinent testing including EMG/NCT and Labs Today's treatment plan includes Surgical Intervention and Observation Follow-up: Suha will followup with me on an as needed basis. She knows to call the office with any questions or concerns in the interim. Scott Quiñonez MD Hand, Plastic, and Reconstructive Surgery [facility] Medical [facility] Department of Orthopedics (Please note that portions of this note may have been completed with a voice recognition program. Efforts were made to edit the dictations but occasionally words are mis-transcribed.) documented in this encounter [facility] 12-08-2024 Evaluation note Diagnosis Onset Date Resolution Dysphagia acute December 08 8:45am Gastroparesis acute December 08, 2024 8:45am Anxiety chronic December 08 8:45am Bile reflux gastritis chronic Mar 2024 8:45am Bile salt-induced diarrhea chronic December 08, 2024 8:45am IBS (irritable bowel syndrome) chronic December 08, 2024 8:45am [facility] Work Phone: [phone]) 838-927602-20-2025 [facility] Medical Records Department [address] [place] [address] History Physical Exam 11/17/24 0938 MR#: [id number] Acct: [id number] Name: SUHA RIVAS Rep #: [id number] : 1985 39 From: Jamshid Friend DO PCP: Nereyda Landry MD Status:[facility] Location: [place] [address] HPI - General General Date of Admission: 11/17/24 Date of Service: 11/17/24 Chief Complaint: dysphagia HPI Narrative SUHA RIVAS, is a 39 F who presents to the office today for follow up. PCP OV 06.12.22 with abd pain and loose stools noting some food triggers. *BGI established 09.19.22 with abdominal pain and loose stools that have been getting worse for the last 6-12 months; notes stress as a trigger. Heartburn has been a daily problem; esomeprazole somewhat helpful, stress is a trigger. Intermittent epigastric pain following cholecystectomy 2012. ? EGD and colonoscopy 12.01.22 EGD gastritis; duodenitis. Noadditional path changes. ? Colonoscopy congested colon; TI normal. No path changes. ? Stool calprotectin, EP, lactoferrin. ??? PCR+ C.difficile without toxin/antigens OV 12.16.22 Start colestipol 1-2 gram QD; continue dicyclomine PRN. Seeing PCP soon for discussion of anxiety treatment. OV 05.04.23 She did start Lexapro 20mg QD through PCP. She has noted some increased anxiety recently (has a trip coming up) and has caused increased upset stomach, cramping, alternating BM. Colestipol increased to 2gram QD and dicyclomine BID and Nexium 40mg QD (has attempted to stop Nexium but had increased stomach discomfort). Prior to increased anxiety she was feeling much better. BM occur daily but with incomplete evacuation and need to repeat BM approximately 15 minutes later, this was present prior to colestipol increase. Prior to starting colestipol she was having a lot of loose stools alternating with constipation. With colestipol she is no longer having foamy/bile diarrhea. Contact 06.16.23 with mild nausea with start of Semaglutide, reassured this is normal. Recently started on ATB therapy for sinuses and has had abnormal stools since the start of this. Start vancomycin. Contact, 08.26.23, portal with recent ATB use without preventative vancomycin; she has been having urgent loose stools. ? Stool lactoferrin, EP WNL C.Difficile PCR +, antigen/toxin negative OV 10.23.23 Nausea, bloating, heartburn after eating certain. During bowel movements will occasional experience sharp lower abdomen pain, sometimes worse on right side. Constipation and diarrhea. GES 71.13 minutes - moderate gastroparesis Start Metoclopramide Contact 03.01.24 pt is currently taking Abilify and pharmacy called with concerns with pt taking Metoclopramide with Abilify, start Prucalopride OV 03.11.24 pt reports continued symptoms from previous visit. States she will have one or two solid bm, followed by diarrhea and then will not have a bm for 3-4 days. OV 09.06.24 [facility] Medical History Wears glasses Anxiety Difficulty swallowing History of IBS Low iron PONV (postoperative nausea and vomiting) Non-smoker Diarrhea Abdominal pain Depression Alcohol use Back pain History of hiatal hernia Gastric reflux Home Medications ???Medication ???Instructions ???Recorded ???Last Taken ???Type Tylenol 500 mg PO/SL PRN PRN Pain 12/11/20 11/30/22 History epinephrine 0.3 mg/0.3 mL 0.3 mg IM Q4H PRN allergies 11/30/22 History injection, auto-injector (EpiPen) ondansetron HCl 4 mg tablet 4 mg PO Q8H PRN nausea and 3 Unknown Rx vomiting #45 tabs vancomycin 125 mg capsule 125 mg PO Q6H PRN CDIFF 10/23/23 U nknown History esomeprazole magnesium 40 mg 40 mg PO QAM #90 caps 02/09/24 Rx capsule,delayed release colestipol 1 gram tablet 1 g PO HS #90 tabs 05/18/24 Rx bupropion HCl 300 mg 24 hr tablet, 300 mg PO QAM 09/06/24 11/16/24 History extended release (Wellbutrin XL) buspirone 10 mg tablet 10 mg PO BID 11/15/24 11/16/24 His tory cetirizine 10 mg tablet (Zyrtec) 10 mg PO DAILY Allergies 11/15/24 11/16/24 History dicyclomine 20 mg tablet 20 mg PO DAILY PRN PRN abdominal 0 11/15/24 Unknown History pain Allergy/AdvReac Type Severity Reaction Status Date / Time bee pollen (Bee Pollen) Allergy Severe Anaphylaxis Verified 11/17/24 08:54 peanut Allergy Severe Anaphylaxis Verified 11/17/24 08:54 Family History Other Breast cancer Diabetes High cholesterol Hypertension Thyroid disorder Surgical History ...[facility]03-06-2023 Procedure [facility]03-06-2023 Procedure [facility]03-06-2023 Procedure [facility]03-06-2023 Procedure [facility]11-19-2022 NoteHNO ID: [id number] Author: Mary Ellen Jacobs PA-C Service: ? Author Type: Physician Banking Paralegal Type: Progress Notes Filed: 08/15/2022 10:07 PM Note Text: This note was created using [employer]. Subjective Suha Rivas is a 37 year old female [...] on supportive care and follow-up. Patient agreeable [facility]11-18-2022 History of Present illness Narrative* Mary Ellen Jacobs PA-C - 08/15/2022 10:04 PM EST This note was created using IntelliWare Systemsriter. Subjective Suha Rivas is a 37 year old female presents with rash on abdomen x2 days. Patient reports thatburning in nature. She does report history of [...] rash across entire abdomen. Most confluent around theperiphery. Neurological: Mental Status: She is alert. Assessment [...] on supportive care and follow-up. Patient agreeable Mary Ellen Jacobs PA-C [facility] Instructions* Patient Instructions* Mary Ellen Jacobs PA-C - 08/15/2022 2:48 PM EST Keep cool, topical benadryl creams documented [facility]2022 NoteHNO ID: [id number] Author: Kena Gardiner LPN Service: ? Author Type: LICENSED NURSE Type: Progress Notes Filed: 05/22/2022 8:12 AM Note Text: Dressing to left hand per order, tolerated well. Kena Gardiner [facility]08-14-2022 NoteHNO ID: [id number] Author: Seamus Torres MD Service: ? 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 Antibiotic if get infected Go to ER if get worse Follow up at [facility] Dressing with silvadine done today and the tube given to pt for home wound care Seamus Torres MD documented [facility] Instructions* Patient Instructions* Seamus Torres MD - 05/11/2022 1:24 PM EDT Home wound care as explained F/u PCP / burn clinic for further care 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 Antibiotic if get infected Go to ER if get worse Follow up at [facility] documented in this encounterTr[facility] CenterEvaluation noteNo assessment information availableWOhioHealth [facility] Work Phone: Evaluation note* Diagnosis Partial thickness burn of left hand including fingers, initial encounter- Primary documented [facility] this encounter [facility]* Diagnosis Onset Date Resolution Status Acute post-operative pain ac [place] [facility] Work Phone: Evaluation note* Diagnosis Dermatitis- Primary Contact dermatitis and other eczema, due to unspecified cause [facility] this encounter [facility] Diagnosis Onset Date Resolution Status Acute post-operative pain ac [place] Abdominal pain acute Alternating constipation and diarrhea acute Dysphagia acute Gastric reflux acute Rectal pain acute [facility] Work Phone: Evaluation note* Diagnosis Onset Date Resolution Status Anxiety chronic Bile reflux gastritis chroni c Bile salt-induced diarrhea c hronic IBS (irritable bowel syndrome) chronic [facility] Work Phone: Evaluation note* Diagnosis Carpal tunnel syndrome, bilateral- Primary Carpal tunnel syndrome Cubital tunnel syndrome, bilateral [facility] Author Jamshid Escobedo [facility] December 01, 2022 6:34am Note Date/Time December 01, 2022 6:34 am [facility] Medical Records Department [address] [place] [address] History & Physical Exam 12/01/22 0633 MR#: [id number] Acct: [id number] Name: SUHA RIVAS Rep #:[id number] : 1985 37 From: Jamshid Escobedo DO PCP: NEREYDA ALEXANDRA Status:[facility] Location: [place] [address] History and Physical Date of Admission: 12/01/22 37 F who presents to the office today for worsening abdominal pain x 6-12 months, as well as diarrhea. She reports intermittent epigastric abd pain since cholecystectomy in 2012. Epigastric pain is intermittent, can be severe, doesn'tradiate, occurs almost daily, tends to be postprandial. She has always tended toalternate between diarrhea and constipation, but diarrhea has been more of a problem recently. Avoids certain foods that cause postprandial diarrhea. Worse with stress. Daily heartburn and nausea despite PPI. Currently taking esomeprazole--initially thought it might be helping, but then still needed TUMS,especially when more stressed. Sometimes has difficulty swallowing food, has to drink lots of fluids to get food to pass. Has also tried pantoprazole. Takes ondansetron prn, thinks somewhat related to stress. Has heartburn daily, retrosternal burning, occas acid in throat. Diarrhea has become more urgent, gets a burning pain in lower abdomen, and spasms and cramps. Has accidents because of the urgency. No nocturnal diarrhea. No melena or hematochezia. Can have mucus in the diarrhea. Gets rectal pains which are sharp, can be random or with BM. No tenesmus. Alternates with constipation, may have 2-3 days w/o BM, then returns to diarrhea. Rarely has formed stool. Colonoscopy 2010 and 2013, normal that she recalls. Had EGD, showed small hiatalhernia. 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 jobs including here at [facility] one weekend a month ROS Const Constitutional: Positive for fatigue, headache(s) and weight change; No fever(s) or frequent falls ENT ENT: Positive for headache(s); No difficulty swallowing Cardio Cardiology: No leg pain with exertion Gastro GI: Positive for abdominal pain, bloating, constipation, diarrhea, heartburn andnausea/dyspepsia; No change in bowel habits, difficulty swallowing, Vomiting blood/hematemesis, Blood in stool or vomiting Musc Musculoskeletal: Positive for joint pain, back pain, muscle weakness, stiffness and restless legs; No abnormal gait, joint swelling, muscle cramps, numbness, tingling, Arthritis, sciatica, leg pain at night or leg pain with exertion Skin Skin: Positive for dry skin and itchy eyes; No lesions or rash Neuro Neurology: Positive for headache(s) and restless legs; No abnormal gait, dizziness, frequent falls, numbness, tingling, tremor(s), Increased tone in limbs, paralysis or seizures Psych Psychiatric: Positive for anxiety, Positive for depression, No paranoia, No Behavioral Problems, No Compulsive Behavior, No hyperactivity, No inattentiveness, No obsessions/compulsions, No Temper Tantrums and No suicidal ideation Endo Endocrine: Positive for fatigue and weight change Aller/Imm Allergy/Immunologic: Positive for itchy eyes Da/Lymp Hematologic/Lymphatic: No easy bleeding or easy bruising Exam Const General: cooperative, comfortable and no acute distress Nutritional Appearance: obese Orientation: alert, awake and oriented x3 HENMT Head: normal to inspection Eyes Conjunctivae: conjunctivae normal Sclera: sclerae normal Resp Effort & Inspection: normal respiratory effort GI Inspection: normal to inspection Palpation: soft, no hepatosplenomegaly, no masses and tender in the LUQ Other: healed laparoscopic incisions General: bladder normal to palpation Bimanual Exam- Vagina & Uterus: bladder normal to palpation Skin General: no jaundice Neuro Gait: normal gait Psych Mood: anxious mood Quality Reporting Tobacco Screening ([facility] 138) Smoking Status: Never smoker Assessment and Plan Assessment and Plan (1) Gastric reflux: ?Status:?Acute ?Plan: 37 yr old female with chronic epigastric pain, heartburn, nausea, dysphagia, diarrhea, rectal pain, lower abd pains DDx esophagitis, white's, hiatal hernia, esophageal stricture, PUD, gastritis,h pylori, bile acid gastritis/diarrhea, IBS, IBD, infection Labs--stool tests for inflammation and infection; blood tests for inflammation, celiac, IBD, rheum/autoimmune Try dicyclomine 10 mg bid for spasms/diarrhea Could consider buspirone for IBS/anxiety; encouraged her to see PCP for treatment of anxiety CT abd pel w/ oral and IV contrast EGD and colonoscopy w/ office f/u 2 wks later (2) Abdominal pain: ?Status:?Acute ?Plan: see above (3) Alternating constipation and diarrhea: ?Status:?Acute ?Plan: see above (4) Rectal pain: ?Status:?Acute ?Plan: see above (5) Dysphagia: ?Status:?Acute ?Plan: see above ? ? ? Orders: Orders Comprehensive Metabolic Profil Today R19.8 - Other specified symptoms and signs involving the digestive system and abdomen ? CRP Today R19.8 - Other specified symptoms and signs involving the digestive system and abdomen ? LDH Today R19.8 - Other specified symptoms and signs involving the digestive system and abdomen ? CBC W/Diff, Automated Today R19.8 - Other specified symptoms and signs involvingthe digestive system and abdomen ? Erythrocyte Sed Rate Today R19.8 - Other specified symptoms and signs involving the digestive system and abdomen ? DEIRDRE Comprehensive Panel Today R19.8 - Other specified symptoms and signs involving the digestive system and abdomen ? Calprotectin, Stool Today R19.8 - Other specified symptoms and signs involving the digestive system and abdomen ? Stool Lactoferrin/WBC Today R19.8 - Other specified symptoms and signs involvingthe digestive system and abdomen ? ANCA Today R19.8 - Other specified symptoms and signs involving the digestive system and abdomen ? Celiac Disease Profile Today R19.8 - Other specified symptoms and signs involving the digestive system and abdomen ? Immunoglobulins G/A/M/E Today R19.8 - Other specified symptoms and signs involving the digestive system and abdomen ? MARCOS + Protein Elect, Serum Today R19.8 - Other specified symptoms and signs involving the digestive system and abdomen ? CDIFF (PCR) Today R19.8 - Other specified symptoms and signs involving the digestive system and abdomen ? ENTERIC PATHOGEN PANEL STOOL Today K58.9 - Irritable bowel syndrome without diarrhea ? Abdomen/Pelvis WITH Contrast Today R10.9 - Unspecified abdominal pain, R19.8 - Other specified symptoms and signs involving the digestive system and abdomen ? Miscellaneous Lab Procedure Today K62.89 - Other specified diseases of anus and rectum, R10.9 - Unspecified abdominal pain, R19.8 - Other specified symptoms andsigns involving the digestive system and abdomen ? I have examined the patient and the H&P has been reviewed. There are no clinicalchanges since date of exam. 12/01/22 0634 <Electronically signed by Jamshid Escobedo DO> Cosigner Signature (if applicable): CC: NEREYDA ALEXANDRA; Jamshid Escobedo DO~ Signed [facility] Work Phone: Reason for referral (narrative)No reason for referral information [facility] Work Phone: Summary Purpose Family History No Family History Records Found Relationship Condition Age at Onset Recorded Date/T seun Not Specified High blood cholesterol Unknown Malignant neoplasm of breast Unknown Hypertension Unknown Relationship Condition Age at Onset Recorded Date/T seun Not Specified Diabetes mellitus Unknown High blood cholesterol Unknown Malignant neoplasm of breast Unknown Hypertension Unknown Disorder of thyroid Unknown Family Member Condition Father High cholesterol Father High blood pressure Maternal Grandmother Diabetes - non-insu kartik dependent Advance Directives No Advanced Directives Records Found Advance Directive Response Recorded Date/ Time Living Will No September 23, 021 12:50pm 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 No September 23, 2021 12:50pm Advance Directive Response Recorded Date/ Time Living Will No July 31 7:13am 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 No July 31, 2022 7:13am Advance Directive Response Recorded Date/ Time Living Will No November 26, 2022 8:43am 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 No November 26 8:43am Advance Directive Response Recorded Date/ Time Living Will No November 26, 2022 9:43am 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 No November 26 9:43am Chief Complaint and Reason for Visit Chief Complaint HYSTER D&C CATRACHO, LAP BILATERAL SALPING Chief Complaint LAP ROBOT HYSTER CYS TO Reason for Visit Acute post-operative pain Chief Complaint LAP ROBOT HYSTER CYS TO ABD PAIN DIARRHEA E ORDERS EORDER Reason for Visit Acute post-operative pain Abdominal pain Alternating constipation and diarrhea Dysphagia Gastric reflux Rectal pain Chief Complaint LAP ROBOT HYSTER CYS TO ABD PAIN DIARRHEA E ORDERS EORDER ABD PAIN Reason for Visit Acute post-operative pain Abdominal pain Alternating constipation and diarrhea Dysphagia Gastric reflux Rectal pain Chief Complaint 4 MO 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 Reason for Visit Anxiety Bile reflux gastritis Bile salt-induced diarrhea IBS (irritable bowel syndrome) Chief Complaint SCREENING 6 MO FU Reason for Visit Anxiety Bile reflux gastritis Bile salt-induced diarrhea IBS (irritable bowel syndrome) Chief Complaint 6 MO FU IBS Reason for Visit Anxiety Bile reflux gastritis Bile salt-induced diarrhea IBS (irritable bowel syndrome) Chief Complaint Admit Date Test Result December 08, 2024 8:4 5am 4 M FU March 28, 2025 7:53a m Reason for Visit Admit Date Dysphagia December 08, 2024 8:4 5am Gastroparesis December 08, 2024 8:4 5am Anxiety December 08, 2024 8:4 5am Bile reflux gastritis December 08, 2024 8 :45am Bile salt-induced diarrhea December 08 8:45am IBS (irritable bowel syndrome) November 8:45am Medications Administered Section Inactive Administered Medications - up to 3 most recent administrations Medication Order MAR Action Action Date Dose Rate Site silver sulfADIAZINE 1 % (SILVADENE,THERMAZENE) TOPICAL, ONCE, 1 dose, On 05/11/22 at 1330, Left hand dressing Given 05/11/2022 1:34 PM EDT Hand, Left Additional Source Comments INFORMATION SOURCE (unrecogn ized section and content) DATE CREATED AUTHOR 11/17/2018 [facility] DATE CREATED AUTHOR AUTHOR'S ORGANIZ ATION 11/19/2018 [facility] DATE CREATED AUTHOR AUTHOR'S ORGANIZ ATION 06/06/2019 [facility] ([place]) DATE CREATED AUTHOR AUTHOR'S ORGANIZ ATION 08/16/2022 [facility] DATE CREATED AUTHOR AUTHOR'S ORGANIZ ATION 09/28/2024 [facility] DATE CREATED AUTHOR AUTHOR'S ORGANIZ ATION 12/28/2024 [facility] DATE CREATED AUTHOR AUTHOR'S ORGANIZ ATION 08/04/2025 [facility] Goals (unrecognized section and content) Goals may be documented in a n alternate sectionGoals may be documented in an alternate sectionGoals may be documented in an alternate sectionGoals may be documented in an alternate sectionGoals may be documented in an alternate sectionGoals may be documented in an alternate sectionGoals may be documented in an alternate sectionGoals may be documented in an alternate section No Information Available Source Comments (unrecognize d section and content) In the event this informatio n is protected by the Federal Confidentiality of Alcohol and Drug Abuse Patient Records regulations: The Federal rules restrict any use of the information to criminally investigate or prosecute any alcohol or drug abuse patient.[facility] Center[facility] the event this information is protected by the Federal Confidentiality of Alcohol and Drug Abuse Patient Records regulations: The Federal rules restrict any use of the information to criminally investigate or prosecute any alcohol or drug abuse patient.[facility] Reason for Visit (unrecogniz ed section and content) Reason Comments Burn Left hand burn from beacon grease happened at home 9:45am today approx 8cm pink/red Reason Comments Rash Burning rash on abdo men--recent surgery Reason Comments New Patient Bilateral carpal darrin vasu Specialty Diagnoses / Procedures Referred By Contac t Referred To Contact Hand Surgery / Orthopedic Surgery Diagnoses Carpal tunnel syndrome, right upper limb Nereyda Landry MD [address] [place] [address] Phone: tel: fax: Khang, Scott Benavidez MD [address] [place] [address] Phone: tel: fax: Referral ID Status Reason Start Date Expiration Date Visits Re quested Visits Authorized [id number] Closed 11/16/2024 11/16/2025 1 1 Care Teams (unrecognized sec tion and content) [employer] Relationship Specialty Start Date End Date Grupo Woods MD [address] [place], [place] [id number] PCP - General Family Practice 01/11/13 [employer] Relationship Specialty Start Date End Date Grupo Woods MD [address] [place] [address] PCP - General Family Medicine 01/11/13 Team Status: Active Member Role Status Dates NEREYDA ALEXANDRA Primary Care Provider Active Team Status: Inactive Member Role Status Dates Guera Bingham SENIOR WIND ENERGY CONSULTANT, SENIOR WIND ENERGY CONSULTANT-C Attending Provider Active MAYELA DAWN Primary Care Provider Active Team Status: Inactive Member Role Status Dates Dr. Chelsey Boyle , Attending ProviderSanjeev Provider Active MAYELA DAWN Primary Care Provider Active Team Status: Inactive Member Role Status Dates IBRAHIMA DAWN Primary Care Provider Active Guera Bingham SENIOR WIND ENERGY CONSULTANT, SENIOR WIND ENERGY CONSULTANT-C Attending Provider, Referrin g Provider Active Team Status: Inactive Member Role Status Dates IBRAHIMA DAWN Primary Care Provider Active Guera Bingham SENIOR WIND ENERGY CONSULTANT, SENIOR WIND ENERGY CONSULTANT-C Attending Provider Active Team Status: Active Member Role Status Dates IBRAHIMA DAWN Primary Care Provider, Referring Provide r Active Dr. Jamshid Escobedo DO Attending Provider, Other Prov ider Active Team Status: Inactive Member Role Status Dates IBRAHIMA DAWN Primary Care Provider, Referring Provide r Active Dr. Jamshid Escobedo DO Attending Provider Active Team Status: Active Member Role Status Dates NEREYDA ALEXANDRA Primary Care Provider Active Team Status: Inactive Member Role Status Dates Dr. Jamshid Escobedo DO Attending Provider Active Team Status: Active Member Role Status Dates MAYELA DAWN Primary Care Provider Active Dr. Ryley Olmedo MD Attending Provider, Referring Pr ovider Active Team Status: Active Member Role Status Dates MAYELA DAWN Primary Care Provide r, Attending Provider, Referring Provider Active Team Status: Inactive Member Role Status Dates MAYELA DWAN Primary Care Provide r, Attending Provider, Referring Provider Active Team Status: Inactive Member Role Status Dates Dr. Jamshid Escobedo DO Attending Provider Active MAYELA DAWN Primary Care Provider, Referring P rovider Active Team Status: Inactive Member Role Status Dates MAYELA DAWN Primary Care Provider Active Dr. Ryley Olmedo MD Attending Provider, Referring Pr ovider Active Team Status: Inactive Member Role Status Dates MAYELA DAWN Primary Care Provider Active Dr. Jamshid Escobedo DO Attending Provider, Referring Provider Active Team Status: Active Member Role/Relationship Status Dates Dr. Nereyda Alexandra MD Primary Care Provider Acti ve Team Status: Inactive Member Role/Relationship Status Dates Dr. Nereyda Alexandra MD Primary Care Provider Acti ve Start: December 08, 2024 End: December 08, 2024 Dr. Nereyda Alexandra MD Referring Provider Active Start: December 08, 2024 End: December 08, 2024 Dr. Jamshid Escobedo DO Attending Provider Active Start: December 08, 2024 End: December 08, 2024 Team Status: Inactive Member Role/Relationship Status Dates Dr. Nereyda Alexandra MD Primary Care Provider Acti ve Start: March 28, 2025 End: March 28, 2025 Dr. Nereyda Alexandra MD Referring Provider Active Start: March 28, 2025 End: March 28, 2025 Dr. Jamshid Escobedo DO Attending Provider Active Start: March 28, 2025 End: March 28, 2025 FOR RECORDS PERTAINING TO PATIENTS WHO ARE [...] BE BASED ON THE PRIMARY CLINICAL RECORDS. [employer] provides no warranty or guarantee of the accuracy or completeness of information in this document.
--- NOTE | 2025-08-05 20:27 | CT_ITS ---
PROCEDURE: ABDOMEN/PELVIS WITH CONTRAST 08/05/2025 REASON FOR EXAM: ABD PAIN / ? SBO TECHNIQUE: Procedure Code: [id number] Modality: CT Procedure: ABDOMEN/PELVIS WITH CONTRAST Coronal and Sagittal reconstruction series were provided. CONTRAST: isovue 370 VOLUME: 100 mL Patient ingested oral contrast. One or more dose reduction techniques were used (e.g., Automated exposure control, adjustment of the mA and/or kV according to patient size, use of iterative reconstruction technique. RADIATION DOSE SUMMARY: CTDI Vol 13.71 mGy DLP :713.64 mGycm COMPARISON: 07-Oct-2022 FINDINGS: Prior cholecystectomy. Prior hysterectomy. Fluid-filled colon, possibly secondary to diarrhea and/or ileus. Mild thickening of the sigmoid colon, probably mild sigmoid colitis. Fat containing umbilical hernia without incarceration. Right ovarian cyst measuring 1.6 cm. Oral contrast reached the terminal ileum/ileocecal valve without CT evidence of bowel obstruction. The visualized lung bases are unremarkable. Normal liver. Normal extrahepatic biliary system. Normal spleen. Normal pancreas. Normal bilateral adrenal glands. Normal size of the right kidney. There is no right renal mass. There are no right renal calculi. There is no right hydronephrosis. Normal visualized right ureter. Normal size of the left kidney. There is no left renal mass. There are no left renal calculi. There is no left hydronephrosis. Normal visualized left ureter. Normal visualized stomach. Normal small intestine. The appendix is visualized and appears normal. There is no demonstrated peritoneal fluid. Normal abdominal aorta. Normal inferior vena cava. Normal retroperitoneum. Normal urinary bladder. There is no pelvic mass lesion or lymphadenopathy. There is no pelvic fluid. Mild diffuse spondylosis. CT/Abdomen/Pelvis WITH Contrast IMPRESSION: Prior cholecystectomy. Prior hysterectomy. Fluid-filled colon, possibly secondary to diarrhea and/or ileus. Mild thickening of the sigmoid colon, probably mild sigmoid colitis. Fat containing umbilical hernia without incarceration. Right ovarian cyst measuring 1.6 cm. Oral contrast reached the terminal ileum/ileocecal valve without CT evidence of bowel obstruction. Reading Location: [place] [id number]
[2025-08-05 20:32] VITALS: BP 149/79; PULSE 82; RESP 16; O2SAT 100
[2025-08-05 20:36] LABS: Hematocrit 40.3 % (37-47); Hemoglobin 13.8 g/dL (12.0-15.0); Immature Granulocytes Count 0.010 X10^3/uL (0.0-0.0); Mean Corp Hgb Conc 34.2 g/dL (32-36); Mean Corpuscular Volume 89.0 fL (81-99); Mean Platelet Vol. 10.8 fl (6.2-12.0); NRBC Flagged by Analyzer 0 % (0-5); Platelet Count 262 K/mm3 (150-450); RBC Distribution Width CV 12.0 % (11.6-14.6); RBC Distribution Width SD 39.0 fl (35.1-43.9); Red Blood Count 4.53 M/mm3 (4.2-5.4); White Blood Count 6.0 K/mm3 (4.4-11.0)
[2025-08-05] MEDS: 0.9% Normal Saline (1000mL) 1,000 ML 999 ML IV (20:37)
[2025-08-05 21:00] LABS: AST(SGOT) 15 U/L (<=31); Alanine Aminotransfer ALT/SGPT 16 U/L (<=34); Albumin, Serum 4.3 g/dL (3.5-5.0); Alkaline Phosphatase 69 U/L (35-104); Anion Gap 10 (5-15); BUN 8 mg/dL (4-19); BUN/Creat Ratio 10.1 RATIO (10-20); Bilirubin, Direct 0.17 mg/dL (0.00-0.30); Calcium,Total 9.1 mg/dL (7.6-11.0); Carbon Dioxide 24.0 mmol/L (21.0-32.0); Chloride 105 mmol/L (98-108); Estimated Creatinine Clearance 124.75 ml/min (50-250); Globulin 2.7 g/dL (2.2-4.2); Glucose 90 mg/dL (70-99); Lipase 26 U/L (13-75); Magnesium 2.6 mg/dL (1.5-2.2); Potassium 3.6 mmol/L (3.3-5.1)
[2025-08-05 22:00] VITALS: BP 123/70; PULSE 81; RESP 16; O2SAT 98
--- NOTE | 2025-08-05 23:09 | EX.ED.DYSGE1 ---
HPI History of Present Illness Chief Complaint: Abd Pain Informant: patient Narrative Narrative: Patient is a 40-year-old female with history of IBS and gastroparesis. She states that she is only had small bowel movements over the last few days. She states however now she is having generalized abdominal discomfort and bouts of vomiting. She is unsure if this is related to her gastroparesis or could be potentially from a blockage. She denies any history of bowel blockage with the worsening symptoms comes in for evaluation. [facility] Medical History Wears glasses Anxiety Difficulty swallowing History of IBS Low iron PONV (postoperative nausea and vomiting) Non-smoker Diarrhea Abdominal pain Depression Alcohol use Back pain History of hiatal hernia Gastric reflux Home Medications ?Medication ?Instructions ?Recorded ?Last Taken ?Type Tylenol 500 mg PO/SL PRN PRN Pain 12/11/20 11/30/22 History epinephrine 0.3 mg/0.3 mL 0.3 mg IM Q4H PRN allergies 11/26/22 11/30/22 History injection, auto-injector (EpiPen) ondansetron HCl 4 mg tablet 4 mg PO Q8H PRN nausea and 06/16/23 Unknown Rx vomiting #45 tabs vancomycin 125 mg capsule 125 mg PO Q6H PRN CDIFF 10/23/23 Unknown History bupropion HCl 300 mg 24 hr tablet, 300 mg PO QAM 09/06/24 11/16/24 History extended release (Wellbutrin XL) buspirone 10 mg tablet 10 mg PO BID 11/15/24 11/16/24 History cetirizine 10 mg tablet (Zyrtec) 10 mg PO DAILY Allergies 11/15/24 11/16/24 History dicyclomine 20 mg tablet 20 mg PO DAILY PRN PRN abdominal 03/01/25 Unknown Rx pain #30 tabs esomeprazole magnesium 40 mg 40 mg PO QAM #90 caps 03/28/25 Unknown Rx capsule,delayed release ondansetron HCl 8 mg tablet 8 mg PO Q8H PRN nausea and 03/28/25 Unknown Rx vomiting #60 tabs hyoscyamine sulfate 0.125 mg tablet 0.125 mg PO Q6H PRN dyspepsia #90 05/18/25 Unknown Rx tabs semaglutide (weight loss) 0.5 0.5 mg (0.5 mL) subcut QWEEK #2 mL 05/22/25 Unknown Rx mg/0.5 mL subcutaneous pen injector (Wegovy) colestipol 1 gram tablet 1 g PO HS #90 tabs 06/05/25 Unknown Rx linaclotide 145 mcg capsule 145 mcg PO DAILY #30 caps 08/06/25 Unknown Rx (Linzess) metoclopramide HCl 10 mg tablet 10 mg PO 4X/DAY PRN nausea and 08/06/25 Unknown Rx (Reglan) vomiting #40 tabs Allergy/AdvReac Type Severity Reaction Status Date / Time bee pollen (Bee Pollen) Allergy Severe Anaphylaxis Verified 08/05/25 18:32 peanut Allergy Severe Anaphylaxis Verified 08/05/25 18:32 Family History Other Breast cancer Diabetes High cholesterol Hypertension Thyroid disorder Surgical History History of hysterectomy History of tubal ligation H/O dilation and curettage History of esophagogastroduodenoscopy (EGD) Hx of colonoscopy Hx of surgical procedure Hx laparoscopic cholecystectomy Hx of wisdom tooth extraction Hx of tonsillectomy Social History Smoking Status: Never smoker alcohol intake: current alcohol intake frequency: a few times a month Alcohol type: beer and wine substance use type: does not use ROS ROS ED Constitutional Constitutional ED: Denies chills or fever(s) ENT ENT ED: Denies sore throat Cardiovascular Cardiovascular: Denies chest pain Respiratory/Chest Respiratory/Chest: Denies cough or dyspnea Gastrointestinal Gastrointestinal: Reports abdominal pain, constipation, nausea and vomiting; Denies diarrhea Genitourinary Genitourinary ED: Denies dysuria Musculoskeletal Musculoskeletal: Denies myalgias Integumentary Denies rash Neurologic Neurologic: Denies headache(s) Hematologic/Lymphatic Hematologic/Lymphatic: Denies easy bleeding or easy bruising EXAM Physical Exam Const Vital Signs: 08/05/25 18:33 08/05/25 20:32 08/05/25 22:00 Temperature 96.8 F L Temperature Source Temporal Pulse Rate 97 82 81 Respiratory Rate 18 16 16 Blood Pressure 160/92 H 149/79 H 123/70 H Blood Pressure Mean 114 102 87 Pulse Ox 100 100 98 Oxygen Delivery Method Room Air Room Air Positive well nourished and well developed General Appearance ED: well developed; Negative for pallor HEENT HEENT Narrative: Normocephalic atraumatic Eyes PERRL and EOMs intact bilaterally General Eye ED: Negative for scleral icterus Neck supple Resp normal respiratory effort and clear to auscultation bilaterally Cardio regular rate and regular rhythm Rate: other Other Details: Radial and carotid pulses are equal and symmetric GI non-distended and no masses GI Narrative: Soft and nondistended with hypoactive bowel sounds No voluntary guarding or rigidity or pulsatile mass No increased tympany No peritoneal signs Auscultation: hypoactive bowel sounds Palpation: soft Extremity normal to inspection Neuro oriented x3, CN's II-XII intact bilaterally and no sensory deficits noted Sensorium / Orientation: alert Motor Exam: strength 5/5 throughout Psych mental status grossly normal Skin no rashes or lesions noted General Skin Exam: Negative for jaundice or pallor MDM MDM MDM Narrative Medical decision making narrative: Patient arrived to ER hypertensive otherwise with stable vitals. She does have a history of IBS as well as gastroparesis which could be the cause of her persistent constipation and now nausea and vomiting. However she is also had a hysterectomy as well as cholecystectomy and therefore there is concern for potential small bowel obstruction versus ileus. Symptoms could also be due to potentially electrolyte abnormality or atypical presentation for pancreatitis. Therefore basic labs were obtained which revealed no clinically significant finding. Patient then had a CT scan with oral contrast obtained. This revealed no sign of intestinal infection such as abscess or perforation diverticulitis or pancreatitis. There was also no findings of small bowel obstruction and exam was consistent with constipation. I discussed with patient having an enema given in the ER or performing a manual disimpaction. She states that she does not want to go down that route but would prefer the larger dose of magnesium citrate to see if this will help stimulate a bowel movement. Therefore this will be ordered for her and with her history of IBS-C I do feel she would benefit from Linzess so I will prescribe that as well. However at this time with stable vitals negative/normal labs and no signs of obstruction or infection on her CT scan there is no need for further intervention and she is otherwise safe for discharge. History & Record Review Discussion w/independent historian: Patient Lab Data Attestation: I reviewed the patient's lab results. Labs: Laboratory Results - last 24 hr 08/05/25 19:55 WBC 6.0 RBC 4.53 Hgb 13.8 Hct 40.3 MCV 89.0 MCH 30.5 MCHC 34.2 RDW Std Deviation 39.0 RDW Coeff of Rosenda 12.0 Plt Count 262 MPV 10.8 Immature Gran % (Auto) 0.200 Neut % (Auto) 59.3 Lymph % (Auto) 31.3 Cole % (Auto) 6.5 Eos % (Auto) 2.0 Baso % (Auto) 0.7 Absolute Neuts (auto) 3.6 Absolute Lymphs (auto) 1.89 Nucleated RBC % 0 Sodium 138 Potassium 3.6 Chloride 105 Carbon Dioxide 24.0 Anion Gap 10 BUN 8 Creatinine 0.80 Estim Creat Clear Calc 124.75 Est GFR (MDRD) Non-Af 96 BUN/Creatinine Ratio 10.1 Glucose 90 Calcium 9.1 Magnesium 2.6 H Total Bilirubin 0.40 Direct Bilirubin 0.17 AST 15 ALT 16 Alkaline Phosphatase 69 Total Protein 7.0 Albumin 4.3 Globulin 2.7 Lipase 26 Discharge Plan Triage Chief Complaint: Abd Pain ED Provider: Kyle Miller Dx/Rx/DC Orders Clinical Impression: IBS (irritable bowel syndrome), Gastroparesis, Constipation Instructions: IBS Irritable Bowel Syndrome, ED Constipation (Adult) Prescriptions: New metoclopramide HCl [Reglan] 10 mg tablet 10 mg PO 4X/DAY PRN (Reason: nausea and vomiting) Qty: 40 0RF Linzess 145 mcg capsule 145 mcg PO DAILY Qty: 30 0RF No Action vancomycin 125 mg capsule 125 mg PO Q6H PRN (Reason: CDIFF) bupropion HCl [Wellbutrin XL] 300 mg tablet extended release 24 hr 300 mg PO QAM esomeprazole magnesium 40 mg capsule,delayed release(DR/EC) 40 mg PO QAM Qty: 90 3RF ondansetron HCl 8 mg tablet 8 mg PO Q8H PRN (Reason: nausea and vomiting) Qty: 60 1RF Tylenol 500 mg PO/SL PRN PRN (Reason: Pain) epinephrine [EpiPen] 0.3 mg/0.3 mL Auto-Injector 0.3 mg IM Q4H PRN (Reason: allergies) buspirone 10 mg tablet 10 mg PO BID cetirizine [Zyrtec] 10 mg tablet 10 mg PO DAILY ondansetron HCl 4 mg tablet 4 mg PO Q8H PRN (Reason: nausea and vomiting) Qty: 45 1RF dicyclomine 20 mg tablet 20 mg PO DAILY PRN PRN (Reason: abdominal pain) Qty: 30 6RF Rx Instructions: take routine two times a day and once as needed hyoscyamine sulfate 0.125 mg tablet 0.125 mg PO Q6H PRN (Reason: dyspepsia) Qty: 90 2RF Wegovy 0.5 mg/0.5 mL pen injector 0.5 mg subcut QWEEK Qty: 2 4RF Rx Instructions: administer weeks 5 through 8 of therapy colestipol 1 gram tablet 1 g PO HS Qty: 90 3RF Rx Instructions: avoid other medications one hour before or 4 hours after Primary Care Provider: Nereyda Landry Referrals: Nereyda Landry MD [Primary Care Provider, Family Practice] Activity Restrictions/Additional Instructions: Your CT scan revealed no sign of bowel blockage or obstruction indicating symptoms related to your gastroparesis and IBS. Please drink half the bottle of magnesium citrate in the morning when you wake. If this does not stimulate a bowel movement after 4 hours then finish the bottle. As long as the magnesium citrate helps with your constipation within the next day begin taking the Linzess to help control any further IBS/constipation symptoms. Use the prescribed Reglan as directed to help with gastroparesis findings. Follow-up with your family doctor and/or GI doctor for repeat evaluation and return to the ER should you have any further concerns Print Language: Serbian Disposition Disposition: Home, Self Care
[2025-08-06 01:27] VITALS: RESP 16; O2SAT 100
[2025-08-06] MEDS: Magnesium Citrate 300 ML PO (01:40)
[2025-08-06 01:44] VITALS: BP 135/80; PULSE 71; RESP 16; TEMP 36.6; O2SAT 100
== END 2025-08-06 01:44 | disposition home or self-care (01) ==
PROVIDERS: Emergency Provider Emergency Medicine; PCP Family Medicine; Visit Provider Emergency Medicine
DX: K31.84 Gastroparesis (principal); K58.1 Irritable bowel syndrome with constipation
CPT/HCPCS: 74177; 80048; 80076; 83690; 83735; 85025; 96361; 96374; 99282; Q9967; A4216